=== PATIENT | male | born 1980 | race Caucasian/White ===

== ENCOUNTER 2016-05-01 13:17 | Emergency (ER) | payer MEDICARE, OTHER ==
[2016-05-01 13:38] LABS: Glucose,Whole Blood 84 mg/dL (75-99)
[2016-05-01] MEDS ORDERED: HYDROmorphone 1 MG/ML 1 ML SYRINGE IVP STA ×2 (13:38→15:20)
--- NOTE | 2016-05-01 13:41 | ED ---
Fall HPI - General Chief Complaint: Fall Stated Complaint: Fall Time Seen by Provider: 05/01/16 13:21 Source: patient, EMS Mode of arrival: EMS - History of Present Illness Initial Comments: 35-year-old male history of insulin-dependent diabetes hypertension seizure disorder on chronic dialysis last dialysis he missed yesterday. States he was carrying a laundry basket down the stairs and he fell complaining of left hip pain. He states the entire left limb hurts from the pelvis on Reading is no back pain no loss of consciousness no neck pain. No focal numbness or weakness he does have neuropathy and retinopathy. He states that he did not pass out - Related Data Home Medications Medication Instructions Recorded Confirmed Ranitidine HCl [Zantac] 150 mg PO BID 01/12/15 05/01/16 Cyclobenzaprine [Flexeril] 10 mg PO TID 06/25/15 05/01/16 oxyCODONE-APAP 10-325MG [Percocet 1 tab PO TID PRN 06/25/15 05/01/16 10-325 mg] Albuterol Inhaler [Ventolin Hfa 2 puff INHALATION RT-Q6H PRN 05/01/16 05/01/16 Inhaler] Furosemide [Lasix] 40 mg PO BID 05/01/16 05/01/16 Glucagon Emergency Kit 1 mg IM ONCE PRN 05/01/16 05/01/16 INSULIN LISPRO (HumaLOG) [humaLOG] See Protocol SQ AC-TID 05/01/16 05/01/16 Insulin Degludec [Tresiba 12 unit SQ AC-SUPPER 05/01/16 05/01/16 Flextouch U-100] Losartan [Cozaar] 25 mg PO DAILY 05/01/16 05/01/16 hydrALAZINE HCL 50 mg PO TID 05/01/16 05/01/16 Previous Rx's Medication Instructions Recorded Diltiazem Cd [Cardizem CD] 120 mg PO DAILY #30 cap.er.24h 04/06/16 levETIRAcetam [Keppra] 500 mg PO Q12HR #60 tab 04/06/16 Allergies Allergy/AdvReac Type Severity Reaction Status Date / Time cephalexin monohydrate Allergy Unknown Verified 05/01/16 13:25 [From Keflex] ciprofloxacin [From Cipro] Allergy Unknown Verified 05/01/16 13:25 ciprofloxacin HCl Allergy Unknown Verified 05/01/16 13:25 [From Cipro] Sulfa (Sulfonamide Allergy Unknown Verified 05/01/16 13:25 Antibiotics) hydrocodone bitartrate AdvReac Nausea & Verified 05/01/16 13:42 [From Vicodin] Vomiting Review of Systems ROS Statement: Those systems with pertinent positive or pertinent negative responses have been documented in the HPI. ROS Other: All systems not noted in ROS Statement are negative. Constitutional: Denies: fever, chills Eyes: Denies: eye pain ENT: Denies: ear pain, throat pain Respiratory: Denies: cough Cardiovascular: Denies: chest pain Gastrointestinal: Denies: abdominal pain, nausea, vomiting Genitourinary: Denies: urgency, dysuria, frequency, hematuria Past Medical History Past Medical History: Asthma, Diabetes Mellitus, Dialysis, Eye Disorder, GERD/ Reflux, Hypertension, Neurologic Disorder, Renal Disease, Seizure Disorder, Skin Disorder, Vascular Disorder Additional Past Medical History / Comment(s): IDDM type I-diagnosed at age 7yrs , current child grade II L great toe diabetic ulcer being tx in wound center by Dr. Em, past diabetic ulcer to R foot, end-stage renal disease on hemodialysis //Mon, diabetic neuropathy, diabetic retinopathy, bilateral near retinal detachment with hemorrhage-had surgery, diabetic gastroparesis, superior mesenteric artery syndrome, gastric ulcer, last seizure 04/2015, chronic pain, past fractures R hand and R knee, R knee gives out at times and has caused falls. History of Any Multi-Drug Resistant Organisms: None Reported Past Surgical History: Appendectomy, Orthopedic Surgery Additional Past Surgical History / Comment(s): Recent debridements L great toe- tx in wound center, 09/2014 and 10/2014 bilateral eye laser surgery for near retinal detachment with hemorrhage, 08/09/13 Gastric neurostimulator, right hand ORIF, dialysis fistula, sacral cystectomy, abscess removed from abdomin, teeth extractions, R knee with patellar tendon repair and I&D Past Anesthesia/Blood Transfusion Reactions: No Reported Reaction Additional Past Anesthesia/Blood Transfusion Reaction / Comment(s): Pt has never recieved blood Past Psychological History: Anxiety, Bipolar, Depression Additional Psychological History / Comment(s): Pt resides with his mother and father. His mother is his mixer operator hot metal when he needs assistance. Pt does not drive - mother takes to appts. He performs his own ADLs. He has a cane but does'nt always use it. He has a hx of his R knee giving out with numerous falls. Pt is seen at [facility] and feels his mental health is stable at this time. Smoking Status: Current every day smoker Past Alcohol Use History: None Reported Additional Past Alcohol Use History / Comment(s): Pt started smoking in 1994 and is a 1 ppd smoker. He does not drink alcohol. Past Drug Use History: None Reported - Past Family History Brother(s) Additional Family Medical History / Comment(s): Patient has 2 brothers and 2 half brothers with no major medical problems. Sister(s) Additional Family Medical History / Comment(s): A she has one sister and one half-sister with no major medical problems. Father Family Medical History: Coronary Artery Disease (CAD), Myocardial Infarction ([place] ) Additional Family Medical History / Comment(s): Father of a [place] at age 56yrs old. Mother Family Medical History: Thyroid Disorder Additional Family Medical History / Comment(s): Mother is in her early 60s with history of hypothyroidism. General Exam Limitations: no limitations General appearance: alert, other (Uncomfortable from pain) Head exam: Present: atraumatic Eye exam: Present: PERRL, EOMI ENT exam: Present: normal oropharynx, mucous membranes moist, TM's normal bilaterally Neck exam: Present: normal inspection. Absent: tenderness Respiratory exam: Present: normal lung sounds bilaterally Cardiovascular Exam: Present: regular rate, normal heart sounds GI/Abdominal exam: Present: soft. Absent: tenderness Left Hip exam: Present: tenderness. Absent: ecchymosis, deformity Upper Leg exam: Present: tenderness Knee exam: Present: tenderness Lower Leg exam: Present: tenderness Neurological exam: Present: alert, CN II-XII intact Psychiatric exam: Present: normal affect, normal mood Skin exam: Present: warm, dry Course Vital Signs 05/01/16 13:21 Temperature 97.5 F L Pulse Rate 97 Respiratory 20 Rate Blood Pressure 197/103 O2 Sat by Pulse 100 Oximetry Medical Decision Making - Medical Decision Making Patient has no fracture he states he has difficulty walking over he does not meet admitting criteria he is able to walk, the nurses able to get him to get up and walk. - Lab Data Result diagrams: 05/01/16 13:55 05/01/16 13:55 Lab Results 05/01/16 05/01/16 05/01/16 Range/Units 13:26 13:55 13:55 WBC 8.9 (3.8-10.6) k/uL RBC 3.25 L (4.30-5.90) m/uL Hgb 10.2 L (13.0-17.5) gm/dL Hct 30.8 L (39.0-53.0) % MCV 94.7 (80.0-100.0) fL MCH 31.3 (25.0-35.0) pg MCHC 33.1 (31.0-37.0) g/dL RDW 17.1 H (11.5-15.5) % Plt Count 171 D (150-450) k/uL Neutrophils % 79 % Lymphocytes % 12 % Monocytes % 5 % Eosinophils % 3 % Basophils % 0 % Neutrophils # 7.1 (1.3-7.7) k/uL Lymphocytes # 1.1 (1.0-4.8) k/uL Monocytes # 0.4 (0-1.0) k/uL Eosinophils # 0.3 (0-0.7) k/uL Basophils # 0.0 (0-0.2) k/uL Anisocytosis Slight Sodium 134 L (137-145) mmol/L Potassium 4.6 (3.5-5.1) mmol/L Chloride 97 L (98-107) mmol/L Carbon Dioxide 28 (22-30) mmol/L Anion Gap 9 mmol/L BUN 36 H (9-20) mg/dL Creatinine 5.90 H* (0.66-1.25) mg/dL Est GFR (MDRD) Af Amer 13 (>60 ml/min/1.73 sqM) Est GFR (MDRD) Non-Af 11 (>60 ml/min/1.73 sqM) Glucose 83 (74-99) mg/dL POC Glucose (mg/dL) 84 (75-99) mg/dL POC Glu [employer] Damon Culver Calcium 11.8 H (8.4-10.2) mg/dL - Radiology Data Radiology results: report reviewed X-ray right hip pelvis knee femur and tib-fib are all negative for fracture. Disposition Clinical Impression: Contusion of leg, left, Chronic renal failure, Insulin dependent diabetes mellitus Disposition: HOME SELF-CARE Condition: Fair Additional Instructions: Patient will take his pain medicine from home but increase it to 4-5 times daily instead 3 times daily apply moist heat be careful not to burn keep his dialysis appointment. Referrals: Tobias Conway MD [Primary Care Provider] - 1-2 days Time of Disposition: 15:55
[2016-05-01] MEDS ORDERED: HYDROmorphone 1 MG/ML 1 ML SYRINGE IM STA (13:57)
[2016-05-01 14:11] LABS: Anisocytosis Slight; Basophils % (A) 0 %; CH 32.3; CHCM 34.3; Eosinophils # (A) 0.3 k/uL (0-0.7); Eosinophils % (A) 3 %; HCT 30.8 % (39.0-53.0); HDW 3.14; HGB 10.2 gm/dL (13.0-17.5); Luc # (Auto) 0.09; Luc % (Auto) 1; Lymphocytes # (A) 1.1 k/uL (1.0-4.8); Lymphocytes % (A) 12 %; MCH 31.3 pg (25.0-35.0); MCHC 33.1 g/dL (31.0-37.0); MCV 94.7 fL (80.0-100.0); Mean Platelet Volume 8.9; Monocytes # (A) 0.4 k/uL (0-1.0); Monocytes % (A) 5 %; Neutrophils # (A) 7.1 k/uL (1.3-7.7); Neutrophils % (A) 79 %; RBC 3.25 m/uL (4.30-5.90); RDW 17.1 % (11.5-15.5); WBC 8.9 k/uL (3.8-10.6)
[2016-05-01 14:35] LABS: Calcium 11.8 mg/dL (8.4-10.2); Potassium 4.6 mmol/L (3.5-5.1)
--- NOTE | 2016-05-01 14:49 | XR ---
EXAMINATION TYPE: XR Hip Complete LT DATE OF EXAM: 05/01/2016 2:38 PM COMPARISON: NONE HISTORY: Pain after a fall TECHNIQUE: 2 views FINDINGS: I see no fracture nor dislocation. Hip joint space is fairly normal. There is no sign of hi p dysplasia. There is vascular calcification. IMPRESSION: Extensive vascular calcification for the patient's age. No fracture.
--- NOTE | 2016-05-01 14:50 | XR ---
EXAMINATION TYPE: XR knee complete LT DATE OF EXAM: 05/01/2016 2:39 PM COMPARISON: NONE HISTORY: Fell down the stairs. Pain. TECHNIQUE: 3 views FINDINGS: I see no fracture nor dislocation. Joint spaces are normal. There is vascular calcification . There is no sign of joint effusion. IMPRESSION: No acute abnormality of the left knee. No fracture.
--- NOTE | 2016-05-01 14:50 | XR ---
EXAMINATION TYPE: XR tibia fibula LT DATE OF EXAM: 05/01/2016 2:39 PM COMPARISON: NONE HISTORY: Pain. Fell down the stairs. TECHNIQUE: 4 views FINDINGS: I see no fracture nor dislocation. Knee joint and ankle joint appear intact. There is vascu lar calcification. IMPRESSION: No acute abnormality of the left tibia and fibula.
--- NOTE | 2016-05-01 14:51 | XR ---
EXAMINATION TYPE: XR femur LT DATE OF EXAM: 05/01/2016 2:39 PM COMPARISON: NONE HISTORY: Pain TECHNIQUE: 3 views FINDINGS: I see no fracture nor dislocation. Joint spaces are normal. There is vascular calcification . IMPRESSION: Negative left femur exam.
--- NOTE | 2016-05-01 14:52 | XR ---
EXAMINATION TYPE: XR pelvis AP view DATE OF EXAM: 05/01/2016 2:39 PM COMPARISON: NONE HISTORY: Pain. Fell down the stairs. TECHNIQUE: Single view FINDINGS: The pelvic ring is intact. Proximal femurs and hip joints are intact. Sacroiliac joints are normal. There is vascular calcification. IMPRESSION: Extensive vascular calcification. No acute abnormality.
[2016-05-01 16:07] VITALS: PULSE 98; RESP 16; TEMP 97.7
[2016-05-01 16:32] VITALS: BP 209/103
[2016-05-01] MEDS ORDERED: cloNIDine HCL 0.1 MG TAB PO STA (16:32)
== END 2016-05-01 16:34 | disposition home or self-care (01) ==
LOC: EC 13:17
DX: S80.12XA Contusion of left lower leg, initial encounter (principal); W10.9XXA Fall (on) (from) unspecified stairs and steps, initial encounter; I12.0 Hypertensive chronic kidney disease with stage 5 chronic kidney disease or end stage renal disease; N18.6 End stage renal disease; Z99.2 Dependence on renal dialysis; E10.40 Type 1 diabetes mellitus with diabetic neuropathy, unspecified; Z79.4 Long term (current) use of insulin; E10.319 Type 1 diabetes mellitus with unspecified diabetic retinopathy without macular edema; Z79.899 Other long term (current) drug therapy; G40.909 Epilepsy, unspecified, not intractable, without status epilepticus; Z88.2 Allergy status to sulfonamides; Z88.1 Allergy status to other antibiotic agents; Z88.5 Allergy status to narcotic agent; K21.9 Gastro-esophageal reflux disease without esophagitis; G89.29 Other chronic pain; E10.621 Type 1 diabetes mellitus with foot ulcer; L97.529 Non-pressure chronic ulcer of other part of left foot with unspecified severity; F17.200 Nicotine dependence, unspecified, uncomplicated
CPT/HCPCS: 96372 ×2; 96374 ×2; 99284 ×2; 36415; 80048; 85025; 72170; 73502; 73552; 73590; 73562; J1170

== ENCOUNTER → 2016-05-16 | Outpatient (CLI) | payer MEDICARE, OTHER ==
[~2016-05-16] MED LIST: SODIUM CHLORIDE 0.9% 250 ML in EMPTY BAG 1 BAG IV PRN; SODIUM CHLORIDE 0.9% 250 ML with PAMIDRONATE 60 MG IV NR; SODIUM CHLORIDE 0.9% 500 ML in EMPTY BAG 1 BAG IV PRN
[2016-05-16 10:12] VITALS: BP 188/95; PULSE 84; RESP 16; TEMP 97.8
== END | disposition home or self-care (01) ==
LOC: PROCWHC3 09:39
PROVIDERS: ATTEND Internal Medicine Nephrology
DX: N25.0 Renal osteodystrophy (principal)
CPT/HCPCS: 96365; 96366; J2430

== ENCOUNTER 2016-05-23 11:34 | Inpatient (IN) | payer MEDICARE, OTHER ==
[2016-05-23] MEDS ORDERED: ASPIRIN 81 MG CHEW PO STA (12:14)
[2016-05-23] MEDS ORDERED: FUROSEMIDE 10 MG/ML 4 ML VIAL IV STA (12:15)
[2016-05-23] MEDS ORDERED: MORPHINE SULFATE 4 MG/ML SYRINGE IV STA (12:15)
--- NOTE | 2016-05-23 13:19 | ED ---
Recheck HPI - General Source: patient, RN notes reviewed Mode of arrival: wheelchair Limitations: no limitations <Fernanda Sierra - Last Filed: 05/23/16 16:45> <Kenny Vergara - Last Filed: 05/23/16 17:40> - General Chief Complaint: Recheck/Abnormal Lab/Rx Stated Complaint: body swelling Time Seen by Provider: 05/23/16 12:06 - History of Present Illness Initial Comments: 35-year-old male presents to emergency room chief complaint of lower body swelling. Patient states that this started over the last week or so. Patient states that he has noticed some extra stress lately signs well. Patient states he went to dialysis yesterday the child take more fluid off but did not seem to help. Patient states that he does have history of heart failure he does have diabetes and multiple health problems. Patient denies any chest pain with this. Patient states he hasn't had any cough. Patient states she was concerned due to the continued swelling that he should be evaluated. Patient denies any recent fever, chills, chest pain, back pain, abdominal pain, nausea vomiting, numbness or tingling, dysuria or hematuria, constipation or diarrhea, headaches or visual changes, or any other current symptoms. (Fernanda Sierra) - Related Data Home Medications Medication Instructions Recorded Confirmed oxyCODONE-APAP 10-325MG [Percocet 1 tab PO TID PRN 06/25/15 05/23/16 10-325 mg] Albuterol Inhaler [Ventolin Hfa 2 puff INHALATION RT-Q6H PRN 05/01/16 05/23/16 Inhaler] Glucagon Emergency Kit 1 mg IM ONCE PRN 05/01/16 05/23/16 INSULIN LISPRO (HumaLOG) [humaLOG] See Protocol SQ AC-TID 05/01/16 05/23/16 Insulin Degludec [Tresiba 10 unit SQ DAILY 05/01/16 05/23/16 Flextouch U-100] hydrALAZINE HCL 50 mg PO TID 05/01/16 05/23/16 Omeprazole [PriLOSEC] 40 mg PO DAILY 05/16/16 05/23/16 Furosemide [Lasix] 20 mg PO DAILY 05/23/16 05/23/16 Allergies Allergy/AdvReac Type Severity Reaction Status Date / Time cephalexin monohydrate Allergy Unknown Verified 05/23/16 12:19 [From Keflex] ciprofloxacin [From Cipro] Allergy Unknown Verified 05/23/16 12:19 ciprofloxacin HCl Allergy Unknown Verified 05/23/16 12:19 [From Cipro] Sulfa (Sulfonamide Allergy Unknown Verified 05/23/16 12:19 Antibiotics) hydrocodone bitartrate AdvReac Nausea & Verified 05/23/16 12:19 [From Vicodin] Vomiting Review of Systems ROS Other: All systems not noted in ROS Statement are negative. <Fernanda Sierra - Last Filed: 05/23/16 16:45> ROS Other: All systems not noted in ROS Statement are negative. <Kenny Vergara - Last Filed: 05/23/16 17:40> ROS Statement: Those systems with pertinent positive or pertinent negative responses have been documented in the HPI. Past Medical History Past Medical History: Asthma, Diabetes Mellitus, Dialysis, Eye Disorder, GERD/ Reflux, Hypertension, Neurologic Disorder, Renal Disease, Seizure Disorder, Skin Disorder, Vascular Disorder Additional Past Medical History / Comment(s): IDDM type I-diagnosed at age 7yrs , current child grade II L great toe diabetic ulcer being tx in wound center by Dr. Em, past diabetic ulcer to R foot, end-stage renal disease on hemodialysis //Mon, diabetic neuropathy, diabetic retinopathy, bilateral near retinal detachment with hemorrhage-had surgery, diabetic gastroparesis, superior mesenteric artery syndrome, gastric ulcer, last seizure 04/2015, chronic pain, past fractures R hand and R knee, R knee gives out at times and has caused falls. History of Any Multi-Drug Resistant Organisms: None Reported Past Surgical History: Appendectomy, Orthopedic Surgery Additional Past Surgical History / Comment(s): Recent debridements L great toe- tx in wound center, 09/2014 and 10/2014 bilateral eye laser surgery for near retinal detachment with hemorrhage, 08/09/13 Gastric neurostimulator, right hand ORIF, dialysis fistula, sacral cystectomy, abscess removed from abdomin, teeth extractions, R knee with patellar tendon repair and I&D Past Anesthesia/Blood Transfusion Reactions: No Reported Reaction Additional Past Anesthesia/Blood Transfusion Reaction / Comment(s): Pt has never recieved blood Past Psychological History: Anxiety, Bipolar, Depression Additional Psychological History / Comment(s): Pt resides with his mother and father. His mother is his a&p mechanic when he needs assistance. Pt does not drive - mother takes to appts. He performs his own ADLs. He has a cane but does'nt always use it. He has a hx of his R knee giving out with numerous falls. Pt is seen at [facility] and feels his mental health is stable at this time. Smoking Status: Current every day smoker Past Alcohol Use History: None Reported Additional Past Alcohol Use History / Comment(s): Pt started smoking in 1994 and is a 1 ppd smoker. He does not drink alcohol. Past Drug Use History: None Reported - Past Family History Brother(s) Additional Family Medical History / Comment(s): Patient has 2 brothers and 2 half brothers with no major medical problems. Sister(s) Additional Family Medical History / Comment(s): A she has one sister and one half-sister with no major medical problems. Father Family Medical History: Coronary Artery Disease (CAD), Myocardial Infarction ([place] ) Additional Family Medical History / Comment(s): Father of a [place] at age 56yrs old. Mother Family Medical History: Thyroid Disorder Additional Family Medical History / Comment(s): Mother is in her early 60s with history of hypothyroidism. <Fernanda Sierra - Last Filed: 05/23/16 16:45> General Exam Limitations: no limitations <Fernanda Sierra - Last Filed: 05/23/16 16:45> <Kenny Vergara - Last Filed: 05/23/16 17:40> - General Exam Comments Initial Comments: General: The patient is awake and alert, in no distress, and does not appear acutely ill. Eye: Pupils are equal, round and reactive to light, extra-ocular movements are intact; there is normal conjunctiva bilaterally. No signs of icterus. Ears, nose, mouth and throat: There are moist mucous membranes. Neck: The neck is supple, there is no tenderness. Cardiovascular: There is a regular rate and rhythm. No murmur, rub or gallop is appreciated. Respiratory: Lungs are clear to auscultation, respirations are non-labored, breath sounds are equal. No wheezes, stridor, rales, or rhonchi. Gastrointestinal: Soft, non-distended, non-tender abdomen without masses or organomegaly noted. There is no rebound or guarding present Back: There is no tenderness to palpation in the midline. There is no obvious deformity. No rashes noted. Musculoskeletal: Normal ROM, no tenderness, 4+ pitting edema to bilateral lower extremities. There is no calf tenderness or swelling. Sensation intact. Pulses equal bilaterally 2+. Neurological: CN II-XII intact, There are no obvious motor or sensory deficits. Coordination appears grossly intact. Speech is normal. Skin: Skin is warm and dry and no rashes or lesions are noted. Psychiatric: Cooperative, appropriate mood & affect, normal judgment. (Fernanda Sierra) Course <Fernanda Sierra - Last Filed: 05/23/16 16:45> <Kenny Vergara - Last Filed: 05/23/16 17:40> Vital Signs 05/23/16 05/23/16 11:57 16:45 Temperature 98.4 F 97.7 F Pulse Rate 98 88 Respiratory 18 18 Rate Blood Pressure 178/88 168/87 O2 Sat by Pulse 100 100 Oximetry Medical Decision Making - Lab Data Result diagrams: 05/23/16 15:07 05/23/16 15:07 <Fernanda Sierra - Last Filed: 05/23/16 16:45> - Lab Data Result diagrams: 05/23/16 15:07 05/23/16 15:07 <Kenny Vergara - Last Filed: 05/23/16 17:40> - Medical Decision Making 35-year-old male presents emergency Department what appears to be a CHF exacerbation. At this time patient is found to be in a CHF exacerbation. This time patient did receive Lasix. This time we will consult referral cardiology. The patient will be admitted to the hospital for continued care. This is discussed with the patient. (Fernanda Sierra) Medical decision making I evaluated the patient his labs show white count of 10.8 hemoglobin 11 hematocrit 36, INR 1.1, BUN 42 creatinine 5.98 with a GFR of 11. Glucose 331. MB fraction 4.7 with a troponin 0.044. BNP is 186,000. Amylase lipase normal limits. The patient still making urine. In the emergency room received Lasix 60. Examination finds the patient with anasarca from feet to mid abdomen. He gets dialysis 3 times weekly he's due tomorrow. They try to take an extra liter 2 days ago with minimal results. I spoke with Dr. Chavis on-call for Dr. Conway. Patient be admitted her service continue to receive Lasix 60 3 times a day. With consultation from the appropriate services including nephrology. Dr. Vergara (Kenny Vergara) - Lab Data Lab Results 05/23/16 05/23/16 05/23/16 Range/Units 15:07 15:07 15:07 WBC 10.8 H (3.8-10.6) k/uL RBC 3.60 L (4.30-5.90) m/uL Hgb 11.3 L (13.0-17.5) gm/dL Hct 36.2 L (39.0-53.0) % MCV 100.3 H D (80.0-100.0) fL MCH 31.4 (25.0-35.0) pg MCHC 31.3 (31.0-37.0) g/dL RDW 16.7 H (11.5-15.5) % Plt Count 162 (150-450) k/uL Neutrophils % 84 % Lymphocytes % 9 % Monocytes % 3 % Eosinophils % 3 % Basophils % 0 % Neutrophils # 9.0 H (1.3-7.7) k/uL Lymphocytes # 1.0 (1.0-4.8) k/uL Monocytes # 0.3 (0-1.0) k/uL Eosinophils # 0.3 (0-0.7) k/uL Basophils # 0.0 (0-0.2) k/uL Hypochromasia Slight Anisocytosis Slight Macrocytosis Slight PT 10.7 (9.0-12.0) sec INR 1.1 (<1.1) APTT 21.8 L (22.0-30.0) sec Sodium 130 L (137-145) mmol/L Potassium 4.7 (3.5-5.1) mmol/L Chloride 91 L (98-107) mmol/L Carbon Dioxide 21 L (22-30) mmol/L Anion Gap 18 mmol/L BUN 42 H (9-20) mg/dL Creatinine 5.98 H* (0.66-1.25) mg/dL Est GFR (MDRD) Af Amer 13 (>60 ml/min/1.73 sqM) Est GFR (MDRD) Non-Af 11 (>60 ml/min/1.73 sqM) Glucose 331 H (74-99) mg/dL Calcium 7.5 L (8.4-10.2) mg/dL Magnesium 2.3 (1.6-2.3) mg/dL Total Bilirubin 0.6 (0.2-1.3) mg/dL AST 17 (17-59) U/L ALT 35 (21-72) U/L Alkaline Phosphatase 134 H (38-126) U/L Total Creatine Kinase (55-170) U/L CK-MB (CK-2) (0.0-2.4) ng/mL CK-MB (CK-2) Rel Index Troponin I (0.000-0.034) ng/mL NT-Pro-B Natriuret Pep pg/mL Total Protein 6.9 (6.3-8.2) g/dL Albumin 3.7 (3.5-5.0) g/dL Amylase <30 L (30-110) U/L Lipase <10 L (23-300) U/L 05/23/16 05/23/16 Range/Units 15:07 15:07 WBC (3.8-10.6) k/uL RBC (4.30-5.90) m/uL Hgb (13.0-17.5) gm/dL Hct (39.0-53.0) % MCV (80.0-100.0) fL MCH (25.0-35.0) pg MCHC (31.0-37.0) g/dL RDW (11.5-15.5) % Plt Count (150-450) k/uL Neutrophils % % Lymphocytes % % Monocytes % % Eosinophils % % Basophils % % Neutrophils # (1.3-7.7) k/uL Lymphocytes # (1.0-4.8) k/uL Monocytes # (0-1.0) k/uL Eosinophils # (0-0.7) k/uL Basophils # (0-0.2) k/uL Hypochromasia Anisocytosis Macrocytosis PT (9.0-12.0) sec INR (<1.1) APTT (22.0-30.0) sec Sodium (137-145) mmol/L Potassium (3.5-5.1) mmol/L Chloride (98-107) mmol/L Carbon Dioxide (22-30) mmol/L Anion Gap mmol/L BUN (9-20) mg/dL Creatinine (0.66-1.25) mg/dL Est GFR (MDRD) Af Amer (>60 ml/min/1.73 sqM) Est GFR (MDRD) Non-Af (>60 ml/min/1.73 sqM) Glucose (74-99) mg/dL Calcium (8.4-10.2) mg/dL Magnesium (1.6-2.3) mg/dL Total Bilirubin (0.2-1.3) mg/dL AST (17-59) U/L ALT (21-72) U/L Alkaline Phosphatase (38-126) U/L Total Creatine Kinase 100 (55-170) U/L CK-MB (CK-2) 4.7 H* (0.0-2.4) ng/mL CK-MB (CK-2) Rel Index 4.7 Troponin I 0.044 H* (0.000-0.034) ng/mL NT-Pro-B Natriuret Pep [id number] pg/mL Total Protein (6.3-8.2) g/dL Albumin (3.5-5.0) g/dL Amylase (30-110) U/L Lipase (23-300) U/L Disposition Time of Disposition: 16:41 Decision Date: 05/23/16 Decision Time: 16:41 <Fernanda Sierra - Last Filed: 05/23/16 16:45> <Kenny Vergara - Last Filed: 05/23/16 17:40> Clinical Impression: Nicotine dependence, Elevated troponin, Acute on chronic renal failure, Insulin dependent diabetes mellitus, CHF exacerbation, Hyponatremia, Chronic anemia Disposition: ADMITTED IP TO THIS HOSP Condition: Stable Referrals: Tobias Conway MD [Primary Care Provider] - 1-2 days
--- NOTE | 2016-05-23 13:36 | XR ---
EXAMINATION TYPE: XR chest 2V DATE OF EXAM: 05/23/2016 1:19 PM COMPARISON: Chest x-ray April 06, 2016. HISTORY: History of diabetes presents with swelling and chest pain TECHNIQUE: Frontal and lateral views of the chest are obtained. FINDINGS: There is persisting cardiomegaly with small bilateral pleural effusions. No suspicious foc al airspace opacity or pneumothorax is seen bilaterally The osseous structures are intact. IMPRESSION: Consider CHF exacerbation or fluid overload state as there is stable mild cardiomegaly w ith small sized bilateral pleural effusions all redemonstrated.
[2016-05-23 15:17] LABS: Anisocytosis Slight; Basophils % (A) 0 %; CH 31.4; CHCM 31.6; Eosinophils # (A) 0.3 k/uL (0-0.7); Eosinophils % (A) 3 %; HCT 36.2 % (39.0-53.0); HDW 3.03; HGB 11.3 gm/dL (13.0-17.5); Hypochromasia Slight; Luc # (Auto) 0.11; Luc % (Auto) 1; Lymphocytes % (A) 9 %; MCH 31.4 pg (25.0-35.0); MCHC 31.3 g/dL (31.0-37.0); Macrocytosis Slight; Mean Platelet Volume 8.2; Monocytes # (A) 0.3 k/uL (0-1.0); Monocytes % (A) 3 %; Neutrophils % (A) 84 %; RDW 16.7 % (11.5-15.5); WBC 10.8 k/uL (3.8-10.6)
[2016-05-23 15:22] LABS: ALT 35 U/L (21-72); AST 17 U/L (17-59); Alkaline Phosphatase 134 U/L (38-126); Amylase <30 U/L (30-110); Anion Gap 18 mmol/L; Blood Urea Nitrogen 42 mg/dL (9-20); Calcium 7.5 mg/dL (8.4-10.2); Carbon Dioxide 21 mmol/L (22-30); Chloride 91 mmol/L (98-107); Glucose 331 mg/dL (74-99); Magnesium 2.3 mg/dL (1.6-2.3); Potassium 4.7 mmol/L (3.5-5.1); Sodium 130 mmol/L (137-145); Total Bilirubin 0.6 mg/dL (0.2-1.3); Total Protein 6.9 g/dL (6.3-8.2)
[2016-05-23 15:24] LABS: MCV 100.3 fL (80.0-100.0)
[2016-05-23 15:29] LABS: Non-African American GFR(MDRD) 11 (>60 ml/min/1.73 sqM)
[2016-05-23 15:36] LABS: INR 1.1 (<1.1); Prothrombin Time 10.7 sec (9.0-12.0)
[2016-05-23 15:49] LABS: Creatine Kinase MB 4.7 ng/mL (0.0-2.4); Troponin I 0.044 ng/mL (0.000-0.034)
[2016-05-23 15:56] LABS: Partial Thromboplastin Time 21.8 sec (22.0-30.0)
[2016-05-23] MEDS ORDERED: ASPIRIN 325 MG TAB PO STA (16:41)
[2016-05-23] MEDS ORDERED: oxyCODONE-APAP 10-325MG 1 EACH TAB PO PRN (16:43)
[2016-05-23] MEDS ORDERED: ALBUTEROL NEBULIZED 2.5 MG/3 ML INHALATION PRN (16:43)
[2016-05-23] MEDS ORDERED: FUROSEMIDE 10 MG/ML 4 ML VIAL IV SCH (16:45)
[2016-05-23 17:55] LABS: Glucose,Whole Blood 316 mg/dL (75-99)
[2016-05-23] MEDS: INSULIN LISPRO (humaLOG) 300 UNIT/3 ML VIAL SQ SCH ×2 (18:19→22:32)
[2016-05-23] MEDS ORDERED: traMADol 50 MG TAB PO PRN (20:29)
[2016-05-23 20:32] LABS: Glucose,Whole Blood 308 mg/dL (75-99)
[2016-05-23] MEDS ORDERED: HYDROmorphone 1 MG/ML 1 ML SYRINGE IVP STA (22:04)
[2016-05-23 22:09] LABS: Creatine Kinase MB 3.5 ng/mL (0.0-2.4); Troponin I 0.036 ng/mL (0.000-0.034)
[2016-05-23] MEDS: hydrALAZINE HCL 50 MG TAB PO SCH (23:37)
[2016-05-23] MEDS: HEPARIN SODIUM,PORCINE 5,000 UNIT/ML 1 ML VIAL SQ SCH (23:37)
[2016-05-23] MEDS: FUROSEMIDE 10 MG/ML 10 ML VIAL IV SCH (23:39)
[2016-05-24] MEDS: HEPARIN SODIUM,PORCINE 5,000 UNIT/ML 1 ML VIAL SQ SCH ×3 (00:41→17:25)
[2016-05-24] MEDS: oxyCODONE-APAP 10-325MG 1 EACH TAB PO SCH ×5 (00:41→21:37)
[2016-05-24] MEDS ORDERED: GELATIN SPONGE,ABSORB (SMALL) 1 EACH SPONGE ONE (02:30)
[2016-05-24 03:13] LABS: Anisocytosis Slight; CHCM 33.5; HCT 30.6 % (39.0-53.0); HDW 3.13; HGB 10.3 gm/dL (13.0-17.5); MCH 32.3 pg (25.0-35.0); MCHC 33.5 g/dL (31.0-37.0); MCV 96.4 fL (80.0-100.0); Macrocytosis Slight; Mean Platelet Volume 8.8; RBC 3.17 m/uL (4.30-5.90); RDW 16.9 % (11.5-15.5)
[2016-05-24 03:41] LABS: Calcium 6.9 mg/dL (8.4-10.2); Potassium 5.3 mmol/L (3.5-5.1); Total Bilirubin 0.4 mg/dL (0.2-1.3); Total Protein 5.4 g/dL (6.3-8.2)
[2016-05-24 03:56] LABS: Creatine Kinase MB 3.5 ng/mL (0.0-2.4); Troponin I 0.037 ng/mL (0.000-0.034)
[2016-05-24 06:10] LABS: Glucose,Whole Blood 193 mg/dL (75-99)
[2016-05-24] MEDS: FUROSEMIDE 10 MG/ML 10 ML VIAL IV SCH ×3 (08:53→23:23)
[2016-05-24] MEDS: INSULIN LISPRO (humaLOG) 300 UNIT/3 ML VIAL SQ SCH ×4 (10:04→21:37)
[2016-05-24 10:09] LABS: Hemoglobin A1C 8.4 % (4.2-6.1)
[2016-05-24] MEDS: hydrALAZINE HCL 50 MG TAB PO SCH ×3 (10:28→21:37)
[2016-05-24] MEDS: PANTOPRAZOLE 40 MG TABLET PO SCH (10:30)
[2016-05-24] MEDS: ASPIRIN 325 MG TAB PO SCH (10:30)
--- NOTE | 2016-05-24 10:52 | CONS ---
DATE OF CONSULTATION: CHIEF COMPLAINT: Leg discomfort and leg edema. REASON FOR CONSULTATION: Elevated troponin. Shyam is a 35-year-old gentleman with history of insulin-requiring diabetes, hypertension, end-stage renal disease on hemodialysis who comes to hospital complaining of bilateral lower extremity edema and pain all over his body. He does not have any exertional chest pain. Does not have angina. He denies shortness of breath, paroxysmal nocturnal dyspnea or orthopnea. He comes in to hospital, had labs done that showed renal failure with a creatinine of 6.3, BUN of 43. Tropes are elevated at 0.04, 0.03, 0.03, probably secondary to underlying renal failure. Hemoglobin is low at 10.3. His EKG shows sinus rhythm with poor R-wave progression and nonspecific ST-T wave changes. Cardiology had been consulted for the elevated tropes. His chest discomfort is not anginal in nature and the troponin elevation is not related to acute myocardial ischemia. Past medical history is significant for renal failure on hemodialysis, diabetes, hypertension. Medications include Lasix 20 q. daily, hydralazine 50 t.i.d., Prilosec, insulin, glucagon and albuterol. ALLERGIES: There are multiple drug allergies including KEFLEX, CIPRO, SULFA, and VICODIN. Family history is negative for premature coronary artery disease. SOCIAL HISTORY: Significant for smoking. There is no history of EtOH abuse or drug abuse. Past surgical history is significant for resection of abscess, bilateral laser eye surgery, placement of gastric neurostimulator and debridement of right great toe wound. REVIEW OF SYSTEMS: HEENT is unremarkable. CARDIAC: As described above. RESPIRATORY: Negative. GI: Negative. GENITOURINARY: As described above. PSYCHOSOCIAL: Negative. ENDOCRINE: Negative. HEMATOLOGICAL: Negative. DERMATOLOGY: Negative. CONSTITUTIONAL: Negative. MUSCULOSKELETAL: Significant for chronic pain. On exam, patient is afebrile. Heart rate is 90 beats per minute. Blood pressure is 150/80, respiratory rate is 16. There is no jugular venous distention. Carotid upstroke is normal. There is no bruit. Chest exam reveals diminished air entry at the bases. Heart exam reveals first and second heart sounds. Systolic murmur in the left lower sternal border. Abdomen is soft. Exam of extremities bilateral pitting edema. Labs show that the hemoglobin is 10.3, platelet count is 147, BUN is 46, creatinine is 6.3. Tropes are in the melo zone. ASSESSMENT: 1. Troponin elevation, probably secondary to renal failure. 2. Chronic pain, musculoskeletal, management per Primary. 3. End-stage renal disease on hemodialysis. 4. Leg edema, probably related to the underlying renal failure. I will obtain a 2-D echo to document his LV function. We cannot rule out acute onset heart failure. I agree with the IV Lasix. Please control his blood pressure optimally. I will follow the patient with interest with you.
[2016-05-24 11:18] LABS: Glucose,Whole Blood 186 mg/dL (75-99)
[2016-05-24] MEDS: HYDROmorphone 1 MG/ML 1 ML SYRINGE IVP PRN ×3 (11:34→20:24)
--- NOTE | 2016-05-24 11:42 | ECHOF ---
Referral Reason:lv function MEASUREMENTS -------- HEIGHT: 180.3 cm WEIGHT: 73.9 kg BP: 155/80 IVSd: 0.7 cm (0.6 - 1.1) LVIDd: 4.6 cm (3.9 - 5.3) LVPWd: 1.4 cm (0.6 - 1.1) IVSs: 1.3 cm LVIDs: 3.5 cm LVPWs: 1.6 cm SV(Teich): 44 ml LAESV Index (A-L): 31.44 ml/m IVSd: 1.0 cm (0.6 - 1.1) LVIDd: 4.9 cm (3.9 - 5.3) LVPWd: 1.2 cm (0.6 - 1.1) IVSs: 1.4 cm LVIDs: 4.0 cm LVPWs: 1.4 cm EDV(Teich): 112 ml ESV(Teich): 68 ml EF(Teich): 39 % %FS: 19 % SV(Teich): 44 ml Ao Diam: 3.1 cm (2.0 - 3.7) AV Cusp: 1.5 cm (1.5 - 2.6) LA Diam: 4.2 cm (2.7 - 3.8) MV EXCURSION: 16.312 mm (> 18.000) MV EF SLOPE: 88 mm/s (70 - 150) EPSS: 1.0 cm MV E Parvez: 1.04 m/s MV DecT: 135 ms MV A Parvez: 0.56 m/s MV E/A Ratio: 1.87 AR PHT: 113 ms RAP: 15.00 mmHg RVSP: 52.51 mmHg FINDINGS -------- Sinus rhythm. This was a technically good study. There is mild concentric left ventricular hypertrophy. Overall left ventricular systolic function is mildly impaired with, an EF between 45 - 50 %. The right ventricle is normal in size and function. LA is moderately dilated 34-39 ml/m2 RA appears enlarged. Aortic valve is trileaflet and is mildly thickened. Trace amount of aortic regurgitation. The mitral valve leaflets are mildly thickened. Mild mitral annular calcification present. Mild mitral regurgitation is present. Moderate tricuspid regurgitation present. There is moderate pulmonary hypertension. The right ventricular systolic pressure, as measured by Doppler, is 52.51mmHg. Pulmonic valve appears structurally normal. The aortic root size is normal. Large Pleural Effusion. CONCLUSIONS -------- 1. Sinus rhythm. 2. The mitral valve leaflets are mildly thickened. 3. Mild mitral annular calcification present. 4. Mild mitral regurgitation is present. 5. Moderate tricuspid regurgitation present. 6. There is moderate pulmonary hypertension. 7. The right ventricular systolic pressure, as measured by Doppler, is 52.51mmHg. 8. Pulmonic valve appears structurally normal. 9. The aortic root size is normal. 10. Large Pleural Effusion. 11. This was a technically good study. 12. There is mild concentric left ventricular hypertrophy. 13. Overall left ventricular systolic function is mildly impaired with, an EF between 45 - 50 %. 14. The right ventricle is normal in size and function. 15. LA is moderately dilated 34-39 ml/m2 16. RA appears enlarged. 17. Aortic valve is trileaflet and is mildly thickened. 18. Trace amount of aortic regurgitation. MEDICAL AUDITOR: Preeti Josue RDCS
[2016-05-24] MEDS: INSULIN GLARGINE 100 UNIT/ML 10 ML VIAL SQ SCH (12:29)
[2016-05-24 13:07] LABS: Glucose,Whole Blood 159 mg/dL (75-99)
[2016-05-24 16:45] LABS: Glucose,Whole Blood 114 mg/dL (75-99)
--- NOTE | 2016-05-24 16:54 | P.CONS ---
History of Present Illness - Chief Complaint Medical debility - History of Present Illness I had the opportunity to see patient for inpatient rehab consultation with regard to medical debility. He was admitted to [facility] yesterday with CHF exacerbation. Chest x-ray demonstrated CHF as well as mild cardiomegaly. Cardiac echo demonstrated mild mitral thickening and regurgitation as well as moderate tricuspid regurgitation. Seen in consultation by Dr. Cindy Calvillo. PT and OT prescribed. Previous functional history: As elicited from patient: 35-year-old right-handed white male who is single lives and 2 floor home with mom currently. Smokes up to a pack per day. Denies recreational drugs or alcohol. Is on disability related to neuropathy and neuropathic pain. Describes independent with own cooking, laundry, sitdown shower, gait with 4 wheeled walker or standard cane. Does not drive. Reports that he will have to move move out due to gait disturbance with multiple falls and mom unable to take care of him. Review of Systems Review of systems: ENT: Denies sneezes or discharge. Eyes: Denies discharge or photophobia. Cardiac: Denies chest pain or palpitation. Pulmonary: Mild shortness of breath. Gastrointestinal: Abdominal discomfort and distention. Genitourinary: Denies discharge or frequency. Musculoskeletal: Denies muscle or bone aches. Neurologic: Mild generalized weakness and severe sensory loss particularly lowers. Endocrine: Denies shakes or sweats. Oncology: Denies cancers. Dermatologic: Denies rash, itching, pruritus. ALLERGY/immunology: Denies sneezes, rashes. Past Medical History Past Medical History: Asthma, Diabetes Mellitus, Dialysis, Eye Disorder, GERD/ Reflux, Hypertension, Neurologic Disorder, Renal Disease, Seizure Disorder, Skin Disorder, Vascular Disorder Additional Past Medical History / Comment(s): IDDM type I-diagnosed at age 7yrs , L great toe diabetic ulcer pt stated healed, diabetic ulcer to R foot, end- stage renal disease on hemodialysis //Mon, diabetic neuropathy, diabetic retinopathy, bilateral near retinal detachment with hemorrhage-had surgery, diabetic gastroparesis, superior mesenteric artery syndrome, gastric ulcer, last seizure 04/2015, chronic pain, past fractures R hand and R knee, R knee gives out at times and has caused falls.STATED HAS A PNE VACINE AT [facility] FEW YEARS AGO UNSURE OF DATE. History of Any Multi-Drug Resistant Organisms: None Reported Past Surgical History: Appendectomy, Orthopedic Surgery Additional Past Surgical History / Comment(s): past debridements L great toe-tx in wound center, 09/2014 and 10/2014 bilateral eye laser surgery for near retinal detachment with hemorrhage, 08/09/13 Gastric neurostimulator, right hand ORIF, dialysis fistula, sacral cystectomy, abscess removed from abdomin, teeth extractions, R knee with patellar tendon repair and I&D Past Anesthesia/Blood Transfusion Reactions: No Reported Reaction Additional Past Anesthesia/Blood Transfusion Reaction / Comm: Pt has never recieved blood Past Psychological History: Anxiety, Bipolar, Depression Additional Psychological History / Comment(s): Pt resides with his mother and father. His mother is his quarter folder when he needs assistance. Pt does not drive - mother takes to appts. He performs his own ADLs. He has a cane but does'nt always use it.. Smoking Status: Current every day smoker Past Alcohol Use History: None Reported Additional Past Alcohol Use History / Comment(s): Pt started smoking in 1994 and is a 1 ppd smoker. He does not drink alcohol. Past Drug Use History: None Reported - Past Family History Brother(s) Additional Family Medical History / Comment(s): Patient has 2 brothers and 2 half brothers with no major medical problems. Sister(s) Additional Family Medical History / Comment(s): A she has one sister and one half-sister with no major medical problems. Father Family Medical History: Coronary Artery Disease (CAD), Myocardial Infarction (NH ) Additional Family Medical History / Comment(s): Father of a NH at age 56yrs old. Mother Family Medical History: Thyroid Disorder Additional Family Medical History / Comment(s): Mother is in her early 60s with history of hypothyroidism. Medications and Allergies Home Medications Medication Instructions Recorded Confirmed Type oxyCODONE-APAP 10-325MG [Percocet 1 tab PO TID PRN 06/25/15 05/23/16 History 10-325 mg] Albuterol Inhaler [Ventolin Hfa 2 puff INHALATION RT-Q6H PRN 05/01/16 05/23/16 History Inhaler] Glucagon Emergency Kit 1 mg IM ONCE PRN 05/01/16 05/23/16 History INSULIN LISPRO (HumaLOG) [humaLOG] See Protocol SQ AC-TID 05/01/16 05/23/16 History Insulin Degludec [Tresiba 10 unit SQ DAILY 05/01/16 05/23/16 History Flextouch U-100] hydrALAZINE HCL 50 mg PO TID 05/01/16 05/23/16 History Omeprazole [PriLOSEC] 40 mg PO DAILY 05/16/16 05/23/16 History Furosemide [Lasix] 20 mg PO DAILY 05/23/16 05/23/16 History Allergies Allergy/AdvReac Type Severity Reaction Status Date / Time cephalexin monohydrate Allergy Unknown Verified 05/23/16 12:19 [From Keflex] ciprofloxacin [From Cipro] Allergy Unknown Verified 05/23/16 12:19 ciprofloxacin HCl Allergy Unknown Verified 05/23/16 12:19 [From Cipro] Sulfa (Sulfonamide Allergy Unknown Verified 05/23/16 12:19 Antibiotics) hydrocodone bitartrate AdvReac Nausea & Verified 05/23/16 12:19 [From Vicodin] Vomiting Physical Exam Vitals: Vital Signs Temp Pulse Pulse Resp BP BP Pulse Ox 05/24/16 11:30 96 16 155/95 99 05/24/16 08:50 93 16 05/24/16 08:20 97.8 F 95 16 155/80 05/24/16 04:00 98.0 F 89 16 150/87 98 05/24/16 00:00 79 16 156/86 100 05/23/16 20:00 98.0 F 91 16 179/81 100 05/23/16 19:27 100 05/23/16 18:38 98.5 F 86 18 166/98 97 05/23/16 17:53 98.1 F 86 15 160/84 100 Intake and Output 05/24/16 05/24/16 05/24/16 06:59 14:59 22:59 Intake Total 1180 Output Total 650 Balance 1180 -650 Intake: Oral 1180 Output: Urine 650 Other: Voiding Method Urinal Urinal # Voids 1 Weight 74 kg Skin: Shiny and atrophic. General: Thin build and slightly uncomfortable appearance. Head: Normocephalic, atraumatic. Eyes: Symmetric. Pupils equal round. Ears: Symmetric. Hearing within normal limits. Mouth: Clear. Neck: Supple. Carotid without bruit. Cardiac: Regular rate and rhythm. Lungs: Clear anteriorly and posteriorly. Abdomen: Soft active nontender. Extremities: Thin limbs with mild to moderate edema forelegs and moderate edema feet. Neurological: Mental status: Alert, cooperative, pleasant. Cranial nerves: Symmetric facial tone and trapezius. Motor: Arms are at best antigravity in legs are definitely less than antigravity. Sensation: Absent legs. DTRs: Absent throughout. Mobility: Poor bed mobility. Results CBC & Chem 7: 05/24/16 03:00 05/24/16 03:00 Labs: Abnormal Lab Results - Last 24 Hours (Table) 05/23/16 05/23/16 05/23/16 Range/Units 17:47 20:31 21:17 RBC (4.30-5.90) m/uL Hgb (13.0-17.5) gm/dL Hct (39.0-53.0) % RDW (11.5-15.5) % Plt Count (150-450) k/uL Sodium (137-145) mmol/L Potassium (3.5-5.1) mmol/L Chloride (98-107) mmol/L Carbon Dioxide (22-30) mmol/L BUN (9-20) mg/dL Creatinine (0.66-1.25) mg/dL Glucose (74-99) mg/dL POC Glucose (mg/dL) 316 H 308 H (75-99) mg/dL Hemoglobin A1c (4.2-6.1) % Calcium (8.4-10.2) mg/dL CK-MB (CK-2) 3.5 H* (0.0-2.4) ng/mL Troponin I 0.036 H* (0.000-0.034) ng/mL Total Protein (6.3-8.2) g/dL Albumin (3.5-5.0) g/dL 05/24/16 05/24/16 05/24/16 Range/Units 03:00 03:00 03:00 RBC 3.17 L (4.30-5.90) m/uL Hgb 10.3 L (13.0-17.5) gm/dL Hct 30.6 L (39.0-53.0) % RDW 16.9 H (11.5-15.5) % Plt Count 147 L (150-450) k/uL Sodium 128 L (137-145) mmol/L Potassium 5.3 H (3.5-5.1) mmol/L Chloride 95 L (98-107) mmol/L Carbon Dioxide 20 L (22-30) mmol/L BUN 46 H (9-20) mg/dL Creatinine 6.30 H* (0.66-1.25) mg/dL Glucose 249 H (74-99) mg/dL POC Glucose (mg/dL) (75-99) mg/dL Hemoglobin A1c 8.4 H (4.2-6.1) % Calcium 6.9 L (8.4-10.2) mg/dL CK-MB (CK-2) (0.0-2.4) ng/mL Troponin I (0.000-0.034) ng/mL Total Protein 5.4 L (6.3-8.2) g/dL Albumin 2.8 L (3.5-5.0) g/dL 05/24/16 05/24/16 05/24/16 Range/Units 03:00 06:09 11:16 RBC (4.30-5.90) m/uL Hgb (13.0-17.5) gm/dL Hct (39.0-53.0) % RDW (11.5-15.5) % Plt Count (150-450) k/uL Sodium (137-145) mmol/L Potassium (3.5-5.1) mmol/L Chloride (98-107) mmol/L Carbon Dioxide (22-30) mmol/L BUN (9-20) mg/dL Creatinine (0.66-1.25) mg/dL Glucose (74-99) mg/dL POC Glucose (mg/dL) 193 H 186 H (75-99) mg/dL Hemoglobin A1c (4.2-6.1) % Calcium (8.4-10.2) mg/dL CK-MB (CK-2) 3.5 H* (0.0-2.4) ng/mL Troponin I 0.037 H* (0.000-0.034) ng/mL Total Protein (6.3-8.2) g/dL Albumin (3.5-5.0) g/dL 05/24/16 05/24/16 Range/Units 13:05 16:44 RBC (4.30-5.90) m/uL Hgb (13.0-17.5) gm/dL Hct (39.0-53.0) % RDW (11.5-15.5) % Plt Count (150-450) k/uL Sodium (137-145) mmol/L Potassium (3.5-5.1) mmol/L Chloride (98-107) mmol/L Carbon Dioxide (22-30) mmol/L BUN (9-20) mg/dL Creatinine (0.66-1.25) mg/dL Glucose (74-99) mg/dL POC Glucose (mg/dL) 159 H 114 H (75-99) mg/dL Hemoglobin A1c (4.2-6.1) % Calcium (8.4-10.2) mg/dL CK-MB (CK-2) (0.0-2.4) ng/mL Troponin I (0.000-0.034) ng/mL Total Protein (6.3-8.2) g/dL Albumin (3.5-5.0) g/dL Assessment and Plan (1) CHF exacerbation Status: Acute Plan: Impression: 1. Medical debility. 2. CHF exacerbation. 3. Chronic kidney disease. 4. Diabetic Polyneuropathy and associated pain syndrome. 5. Gastroparesis and abdominal pain. Comments and plan: At this time PT and OT are already ordered. Rehab prognosis guarded due to poor leg strength and the fact that he's been doing poorly at home and mom may now be burnt out. Patient already anticipating need for 24/ 7 physical assistance and this most likely sounds to be ECF for subacute placement.We'll follow with yourself.
--- NOTE | 2016-05-24 20:07 | CONS ---
DATE OF CONSULTATION: 05/24/2016 REASON FOR CONSULTATION: End-stage renal disease. HISTORY OF PRESENT ILLNESS: Patient is a 35-year-old male with history of end-stage renal disease, on hemodialysis on a Monday, , Monday schedule. Patient has lately been quite noncompliant with his treatments. He states that he is not able to make it to dialysis when he is not feeling well. There are multiple social issues at home. Patient lives with his mother and her , who is his stepdad, and there have been multiple social issues. According to his mother, he has been quite weak, particularly lately, and has not been able to walk even short distances without falling. She is not sure if his blood sugars are low, since she works. She feels at this time he is not able to take care of himself and he needs to be placed in a rehab facility or a chcf. PAST MEDICAL HISTORY: 1. End-stage renal disease. 2. CKD, bone mineral disorder. 3. Type 1 diabetes. 4. Diabetic gastroparesis. 5. Seizure disorder. 6. History of gastric ulcer. 7. History of superior mesenteric artery syndrome. PAST SURGICAL HISTORY: 1. Appendectomy. 2. Gastric pacer placement. 3. Perm-A-Cath placement for dialysis. 4. AV fistula. SOCIAL HISTORY: Positive for smoking. No history of other drug abuse or alcohol abuse. REVIEW OF SYSTEMS: As per HPI. Other systems negative. Patient has been complaining of increased lower extremity edema over the past 1 to 2 weeks. On examination, he is currently comfortable, awake, not in any acute distress. He is upset since his mother walked in. Blood pressure is 155/95, heart rate 96 per minute. He is afebrile. EXAMINATION OF THE HEART: S1 and S2. EXAMINATION OF THE LUNGS: Decreased breath sounds in the bases. ABDOMEN: Soft, nontender. Examination of lower extremities shows edema 3+ bilaterally. NUCLEAR MEDICINE MEDICAL DIRECTOR exam is grossly intact. Patient is moving all 4 extremities. Labs show sodium 128, potassium 5.3; hemoglobin 10.3. Chest x-ray shows evidence of CHF. ASSESSMENT: 1. End-stage renal disease, on hemodialysis on a Monday, , Monday schedule, with patient being quite noncompliant as outpatient. We will arrange for hemodialysis today. 2. Fluid overload secondary to noncompliance. Patient will be dialyzed today as well as tomorrow; mainly for ultrafiltration tomorrow. 3. Multiple social issues at home. Consider placement to rehab or extended-care facility, as patient is not able to take care of himself, with issues with blood sugar control and noncompliance with diet and multiple falls. 4. Cardiomyopathy with ejection fraction of 45% to 50% with moderate pulmonary hypertension noted on the echocardiogram as well. PLAN: Hemodialysis today. Repeat dialysis in a.m. and increase UF as tolerated.
[2016-05-24 21:07] LABS: Glucose,Whole Blood 128 mg/dL (75-99)
--- NOTE | 2016-05-24 21:51 | P.HPIM ---
History of Present Illness Chief Complaint: inability to ambulate secondary to severe pain, worsening edema , shortness This is a 35-year-old male. He is a patient of Dr. Tobias Conway with past mental history of end-stage renal disease on hemodialysis Monday and Monday, diabetes mellitus type 1 uncontrolled, diabetic gastroparesis with nerve stimulator in place, chronic anemia, diabetic polyneuropathy, generalized anxiety disorder, bipolar disorder, seizure disorder, hypertension, hyperlipidemia, chronic pain syndrome, gastroesophageal reflux disease, history of MRSA infection, retinopathy, advanced cardiomyopathy with ejection fraction 20% followed by cardiology. Patient was seen in emergency room secondary to increasing shortness of breath as he missed his scheduled dialysis 4 days ago on a Monday as patient has increasing difficulties with his uncontrolled pain despite Percocet 10 325 at 3 times a day. He follows with Dr. Rendon for his chronic pain. Patient's pain is generalized shooting burning throbbing constant with achiness and spasms. He has increasing edema from below the waist , developed shortness of breath with PND. Patient denies any fever no chills. No changes in nausea or vomiting appetite is similar to previous. No dysuria no hematuria no diarrhea no vision changes He required ER evaluation for treatment of congestive heart failure in the emergency room imaging studies include Chest x-ray shows evidence of pulmonary venous congestion with scattered areas of increased obesity and pleural effusions consider volume overload. , EKG shows sinus rhythm with poor R -wave progression and nonspecific ST-T wave changes, troponin elevated at 0.0 4.0 3.03 creatinine is 6.3. Patient is not anuric Review of Systems Constitutional: Reports as per HPI, Reports chronic pain, Denies anorexia, Denies chills, Denies chronic headaches, Denies daytime sleepiness, Denies fatigue, Denies fever, Denies lethargy, Denies malaise, Denies night sweats, Denies poor appetite, Denies sweats, Denies weakness, Denies weight gain, Denies weight loss Ears, nose, mouth and throat: Reports as per HPI, Denies ant. neck pain, Denies bleeding gums, Denies dental pain, Denies dysphagia, Denies epistaxis, Denies headache, Denies hoarseness, Denies mouth pain, Denies nasal congestion, Denies nasal discharge, Denies neck fullness/pressure, Denies neck lump, Denies nose pain, Denies odynophagia, Denies post-nasal drip, Denies sinus pain, Denies sinus pressure, Denies swelling in mouth, Denies swelling in throat, Denies sore throat, Denies vertigo, Denies voice changes Cardiovascular: Reports as per HPI, Reports edema, Reports leg edema, Reports orthopnea, Reports shortness of breath, Denies chest pain, Denies claudication, Denies decreased exercise tolerance, Denies dyspnea on exertion, Denies high blood pressure, Denies irregular heart beat, Denies lightheadedness, Denies palpitations, Denies paroxysmal nocturnal dyspnea, Denies phlebitis, Denies rapid heart beat, Denies syncope Respiratory: Reports as per HPI, Denies congestion, Denies cough, Denies cough with sputum, Denies dyspnea, Denies excessive sputum, Denies hemoptysis, Denies home oxygen, Denies pain, Denies pain on inspiration, Denies pleurisy, Denies respiratory infections, Denies sleep apnea, Denies snoring, Denies wheezing Gastrointestinal: Reports as per HPI, Denies abdominal pain, Denies belching, Denies bloating, Denies BRBPR, Denies change in bowel habits, Denies coffee ground emesis, Denies constipation, Denies diarrhea, Denies dyspepsia, Denies early satiety, Denies excessive gas, Denies heartburn, Denies hematemesis, Denies hematochezia, Denies indigestion, Denies jaundice, Denies lactose intolerance, Denies loss of appetite, Denies melena, Denies nausea, Denies vomiting Genitourinary: Reports as per HPI, Denies decreased libido, Denies difficulties fathering child, Denies discharge, Denies dysuria, Denies erectile dysfunction, Denies flank pain, Denies genital pain, Denies genital sores, Denies hematuria, Denies impotence, Denies incontinence, Denies kidney stones, Denies nocturia, Denies polyuria, Denies testicular lump, Denies testicular pain, Denies urinary frequency, Denies urinary hesitancy, Denies urinary retention Musculoskeletal: Reports as per HPI, Denies arm numbness/tingling, Denies atrophy, Denies fractures, Denies frequent falls, Denies gait dysfunction, Denies hot joints, Denies leg numbness/tingling, Denies limitation of motion, Denies loss of height, Denies low back pain, Denies morning stiffness, Denies muscle cramps, Denies muscle weakness, Denies myalgias, Denies neck pain, Denies neck stiffness, Denies prior amputations, Denies redness of joints, Denies shooting arm pain, Denies shooting leg pain Integumentary: Reports as per HPI, Denies acne, Denies boils, Denies brittle nails, Denies change in hair/nails, Denies color changes, Denies darkening of skin, Denies depigmentation, Denies dryness, Denies foot/leg ulcers, Denies growths, Denies hirsutism, Denies lesions, Denies onychomycosis, Denies pruritus , Denies rash, Denies sores, Denies striae, Denies unusual bruising, Denies wounds Neurological: Reports as per HPI, Denies aphasia, Denies ataxia, Denies balance difficulties, Denies burning pain, Denies change in mentation, Denies change in smell/taste, Denies change in speech, Denies confusion, Denies convulsions, Denies double vision, Denies gait dysfunction, Denies head injury, Denies headaches, Denies hearing difficulties, Denies lack of coordination, Denies loss of vision, Denies memory loss, Denies migraines, Denies motor disturbance, Denies numbness, Denies paralysis, Denies paresthesias, Denies seizures, Denies sensory deficit, Denies spasticity, Denies syncope, Denies tic, Denies tingling , Denies transient paralysis, Denies tremors, Denies vertigo, Denies weakness, Denies visual changes Psychiatric: Reports as per HPI, Denies anhedonia, Denies anxiety, Denies anxiety attacks, Denies change in appetite, Denies change in libido, Denies change in sleep habits, Denies confusion, Denies depression, Denies difficulty concentrating, Denies disorientation, Denies hallucinations, Denies hopelessness , Denies hypersomnia, Denies insomnia, Denies irritability, Denies memory loss, Denies mood swings, Denies paranoia, Denies sadness/tearfulness, Denies sleep disturbances, Denies suicidal ideation Endocrine: Reports as per HPI, Denies cold intolerance, Denies deepening of the voice, Denies excessive sweating, Denies excessive thirst, Denies fatigue, Denies flushing, Denies heat intolerance, Denies high blood sugars, Denies increase in ring/shoe/hat size, Denies low blood sugars, Denies nocturia, Denies palpitations, Denies polydipsia, Denies polyphagia, Denies polyuria, Denies proptosis, Denies recent glucocorticoid use, Denies thyroid mass, Denies weight change Past Medical History Past Medical History: Asthma, Diabetes Mellitus, Dialysis, Eye Disorder, GERD/ Reflux, Hypertension, Neurologic Disorder, Renal Disease, Seizure Disorder, Skin Disorder, Vascular Disorder Additional Past Medical History / Comment(s): IDDM type I-diagnosed at age 7yrs , L great toe diabetic ulcer pt stated healed, diabetic ulcer to R foot, end- stage renal disease on hemodialysis //Mon, diabetic neuropathy, diabetic retinopathy, bilateral near retinal detachment with hemorrhage-had surgery, diabetic gastroparesis, superior mesenteric artery syndrome, gastric ulcer, last seizure 04/2015, chronic pain, past fractures R hand and R knee, R knee gives out at times and has caused falls.STATED HAS A PNE VACINE AT [facility] FEW YEARS AGO UNSURE OF DATE. History of Any Multi-Drug Resistant Organisms: None Reported Past Surgical History: Appendectomy, Orthopedic Surgery Additional Past Surgical History / Comment(s): past debridements L great toe-tx in wound center, 09/2014 and 10/2014 bilateral eye laser surgery for near retinal detachment with hemorrhage, 08/09/13 Gastric neurostimulator, right hand ORIF, dialysis fistula, sacral cystectomy, abscess removed from abdomin, teeth extractions, R knee with patellar tendon repair and I&D Past Anesthesia/Blood Transfusion Reactions: No Reported Reaction Additional Past Anesthesia/Blood Transfusion Reaction / Comment(s): Pt has never recieved blood Past Psychological History: Anxiety, Bipolar, Depression Additional Psychological History / Comment(s): Pt resides with his mother and father. His mother is his skidway man when he needs assistance. Pt does not drive - mother takes to appts. He performs his own ADLs. He has a cane but does'nt always use it.. Smoking Status: Current every day smoker Past Alcohol Use History: None Reported Additional Past Alcohol Use History / Comment(s): Pt started smoking in 1994 and is a 1 ppd smoker. He does not drink alcohol. Past Drug Use History: None Reported - Past Family History Brother(s) Additional Family Medical History / Comment(s): Patient has 2 brothers and 2 half brothers with no major medical problems. Sister(s) Additional Family Medical History / Comment(s): A she has one sister and one half-sister with no major medical problems. Father Family Medical History: Coronary Artery Disease (CAD), Myocardial Infarction (VT ) Additional Family Medical History / Comment(s): Father of a VT at age 56yrs old. Mother Family Medical History: Thyroid Disorder Additional Family Medical History / Comment(s): Mother is in her early 60s with history of hypothyroidism. Medications and Allergies Home Medications Medication Instructions Recorded Confirmed Type oxyCODONE-APAP 10-325MG [Percocet 1 tab PO TID PRN 06/25/15 05/23/16 History 10-325 mg] Albuterol Inhaler [Ventolin Hfa 2 puff INHALATION RT-Q6H PRN 05/01/16 05/23/16 History Inhaler] Glucagon Emergency Kit 1 mg IM ONCE PRN 05/01/16 05/23/16 History INSULIN LISPRO (HumaLOG) [humaLOG] See Protocol SQ AC-TID 05/01/16 05/23/16 History Insulin Degludec [Tresiba 10 unit SQ DAILY 05/01/16 05/23/16 History Flextouch U-100] hydrALAZINE HCL 50 mg PO TID 05/01/16 05/23/16 History Omeprazole [PriLOSEC] 40 mg PO DAILY 05/16/16 05/23/16 History Furosemide [Lasix] 20 mg PO DAILY 05/23/16 05/23/16 History Allergies Allergy/AdvReac Type Severity Reaction Status Date / Time cephalexin monohydrate Allergy Unknown Verified 05/23/16 12:19 [From Keflex] ciprofloxacin [From Cipro] Allergy Unknown Verified 05/23/16 12:19 ciprofloxacin HCl Allergy Unknown Verified 05/23/16 12:19 [From Cipro] Sulfa (Sulfonamide Allergy Unknown Verified 05/23/16 12:19 Antibiotics) hydrocodone bitartrate AdvReac Nausea & Verified 05/23/16 12:19 [From Vicodin] Vomiting Physical Exam Vitals: Vital Signs Temp Pulse Pulse Resp BP BP Pulse Ox 05/24/16 11:30 96 16 155/95 99 05/24/16 08:50 93 16 05/24/16 08:20 97.8 F 95 16 155/80 05/24/16 04:00 98.0 F 89 16 150/87 98 05/24/16 00:00 79 16 156/86 100 05/23/16 20:00 98.0 F 91 16 179/81 100 05/23/16 19:27 100 05/23/16 18:38 98.5 F 86 18 166/98 97 05/23/16 17:53 98.1 F 86 15 160/84 100 Intake and Output 05/24/16 05/24/16 05/24/16 06:59 14:59 22:59 Intake Total 1180 Output Total 650 Balance 1180 -650 Intake: Oral 1180 Output: Urine 650 Other: Voiding Method Urinal Urinal # Voids 1 Weight 74 kg - Constitutional General appearance: cooperative, no acute distress, thin - EENT Eyes: anicteric sclerae, EOMI, PERRLA, dentition normal ENT: hard of hearing, normal oropharynx - Neck Neck: no lymphadenopathy, normal ROM, no other, no rigidity, no stridor, no thyromegaly Thyroid: bilateral: normal size - Respiratory Respiratory: bilateral: CTA, diminished - Cardiovascular Rhythm: regular Heart sounds: normal: S1 Abnormal Heart Sounds: systolic murmur, no diastolic murmur, no rub, no S3 Gallop, no S4 Gallop, no click, no other leg Peripheral Edema: bilateral: 3+ - Gastrointestinal General gastrointestinal: no absent bowel sounds, no decreased bowel sounds, distended, no hepatomegaly, no hyperactive bowel sounds, normal bowel sounds, no organomegaly, no rigid, no scaphoid, soft, no splenomegaly, no tenderness, no umbilical hernia, no ventral hernia - Integumentary Integumentary: decreased turgor, normal - Neurologic Neurologic: CNII-XII intact - Musculoskeletal Musculoskeletal: generalized weakness, strength equal bilaterally - Psychiatric Psychiatric: A&O x's 3, appropriate affect, intact judgment & insight Results CBC & Chem 7: 05/24/16 03:00 05/24/16 03:00 Labs: Abnormal Lab Results - Last 24 Hours (Table) 05/23/16 05/23/16 05/23/16 Range/Units 17:47 20:31 21:17 RBC (4.30-5.90) m/uL Hgb (13.0-17.5) gm/dL Hct (39.0-53.0) % RDW (11.5-15.5) % Plt Count (150-450) k/uL Sodium (137-145) mmol/L Potassium (3.5-5.1) mmol/L Chloride (98-107) mmol/L Carbon Dioxide (22-30) mmol/L BUN (9-20) mg/dL Creatinine (0.66-1.25) mg/dL Glucose (74-99) mg/dL POC Glucose (mg/dL) 316 H 308 H (75-99) mg/dL Hemoglobin A1c (4.2-6.1) % Calcium (8.4-10.2) mg/dL CK-MB (CK-2) 3.5 H* (0.0-2.4) ng/mL Troponin I 0.036 H* (0.000-0.034) ng/mL Total Protein (6.3-8.2) g/dL Albumin (3.5-5.0) g/dL 05/24/16 05/24/16 05/24/16 Range/Units 03:00 03:00 03:00 RBC 3.17 L (4.30-5.90) m/uL Hgb 10.3 L (13.0-17.5) gm/dL Hct 30.6 L (39.0-53.0) % RDW 16.9 H (11.5-15.5) % Plt Count 147 L (150-450) k/uL Sodium 128 L (137-145) mmol/L Potassium 5.3 H (3.5-5.1) mmol/L Chloride 95 L (98-107) mmol/L Carbon Dioxide 20 L (22-30) mmol/L BUN 46 H (9-20) mg/dL Creatinine 6.30 H* (0.66-1.25) mg/dL Glucose 249 H (74-99) mg/dL POC Glucose (mg/dL) (75-99) mg/dL Hemoglobin A1c 8.4 H (4.2-6.1) % Calcium 6.9 L (8.4-10.2) mg/dL CK-MB (CK-2) (0.0-2.4) ng/mL Troponin I (0.000-0.034) ng/mL Total Protein 5.4 L (6.3-8.2) g/dL Albumin 2.8 L (3.5-5.0) g/dL 05/24/16 05/24/16 05/24/16 Range/Units 03:00 06:09 11:16 RBC (4.30-5.90) m/uL Hgb (13.0-17.5) gm/dL Hct (39.0-53.0) % RDW (11.5-15.5) % Plt Count (150-450) k/uL Sodium (137-145) mmol/L Potassium (3.5-5.1) mmol/L Chloride (98-107) mmol/L Carbon Dioxide (22-30) mmol/L BUN (9-20) mg/dL Creatinine (0.66-1.25) mg/dL Glucose (74-99) mg/dL POC Glucose (mg/dL) 193 H 186 H (75-99) mg/dL Hemoglobin A1c (4.2-6.1) % Calcium (8.4-10.2) mg/dL CK-MB (CK-2) 3.5 H* (0.0-2.4) ng/mL Troponin I 0.037 H* (0.000-0.034) ng/mL Total Protein (6.3-8.2) g/dL Albumin (3.5-5.0) g/dL 05/24/16 Range/Units 13:05 RBC (4.30-5.90) m/uL Hgb (13.0-17.5) gm/dL Hct (39.0-53.0) % RDW (11.5-15.5) % Plt Count (150-450) k/uL Sodium (137-145) mmol/L Potassium (3.5-5.1) mmol/L Chloride (98-107) mmol/L Carbon Dioxide (22-30) mmol/L BUN (9-20) mg/dL Creatinine (0.66-1.25) mg/dL Glucose (74-99) mg/dL POC Glucose (mg/dL) 159 H (75-99) mg/dL Hemoglobin A1c (4.2-6.1) % Calcium (8.4-10.2) mg/dL CK-MB (CK-2) (0.0-2.4) ng/mL Troponin I (0.000-0.034) ng/mL Total Protein (6.3-8.2) g/dL Albumin (3.5-5.0) g/dL Laboratory Results WBC 10.0 k/uL (3.8-10.6) 05/24/16 03:00 RBC 3.17 m/uL (4.30-5.90) L 05/24/16 03:00 Hgb 10.3 gm/dL (13.0-17.5) L 05/24/16 03:00 Hct 30.6 % (39.0-53.0) L 05/24/16 03:00 MCV 96.4 fL (80.0-100.0) 05/24/16 03:00 MCH 32.3 pg (25.0-35.0) 05/24/16 03:00 MCHC 33.5 g/dL (31.0-37.0) 05/24/16 03:00 RDW 16.9 % (11.5-15.5) H 05/24/16 03:00 Plt Count 147 k/uL (150-450) L 05/24/16 03:00 Neutrophils % 84 % 05/23/16 15:07 Lymphocytes % 9 % 05/23/16 15:07 Monocytes % 3 % 05/23/16 15:07 Eosinophils % 3 % 05/23/16 15:07 Basophils % 0 % 05/23/16 15:07 Neutrophils # 9.0 k/uL (1.3-7.7) H 05/23/16 15:07 Lymphocytes # 1.0 k/uL (1.0-4.8) 05/23/16 15:07 Monocytes # 0.3 k/uL (0-1.0) 05/23/16 15:07 Eosinophils # 0.3 k/uL (0-0.7) 05/23/16 15:07 Basophils # 0.0 k/uL (0-0.2) 05/23/16 15:07 Hypochromasia Slight 05/23/16 15:07 Anisocytosis Slight 05/24/16 03:00 Macrocytosis Slight 05/24/16 03:00 PT 10.7 sec (9.0-12.0) 05/23/16 15:07 INR 1.1 (<1.1) 05/23/16 15:07 APTT 21.8 sec (22.0-30.0) L 05/23/16 15:07 Sodium 128 mmol/L (137-145) L 05/24/16 03:00 Potassium 5.3 mmol/L (3.5-5.1) H 05/24/16 03:00 Chloride 95 mmol/L (98-107) L 05/24/16 03:00 Carbon Dioxide 20 mmol/L (22-30) L 05/24/16 03:00 Anion Gap 13 mmol/L 05/24/16 03:00 BUN 46 mg/dL (9-20) H 05/24/16 03:00 Creatinine 6.30 mg/dL (0.66-1.25) H* 05/24/16 03:00 Est GFR (MDRD) Af Amer 12 (>60 ml/min/1.73 sqM) 05/24/16 03:00 Est GFR (MDRD) Non-Af 10 (>60 ml/min/1.73 sqM) 05/24/16 03:00 Glucose 249 mg/dL (74-99) H 05/24/16 03:00 POC Glucose (mg/dL) 159 mg/dL (75-99) H 05/24/16 13:05 POC Glu Mattress Finisher ID [email or web address] 05/24/16 13:[address] Glu mg/dL 194 mg/dL 05/24/16 03:00 Hemoglobin A1c 8.4 % (4.2-6.1) H 05/24/16 03:00 Uric Acid 6.2 mg/dL (3.5-8.5) 05/24/16 06:20 Calcium 6.9 mg/dL (8.4-10.2) L 05/24/16 03:00 Magnesium 2.3 mg/dL (1.6-2.3) 05/23/16 15:07 Total Bilirubin 0.4 mg/dL (0.2-1.3) 05/24/16 03:00 AST 18 U/L (17-59) 05/24/16 03:00 ALT 34 U/L (21-72) 05/24/16 03:00 Alkaline Phosphatase 105 U/L (38-126) 05/24/16 03:00 Total Creatine Kinase 100 U/L (55-170) 05/23/16 15:07 CK-MB (CK-2) 3.5 ng/mL (0.0-2.4) H* 05/24/16 03:00 CK-MB (CK-2) Rel Index 4.7 05/23/16 15:07 Troponin I 0.037 ng/mL (0.000-0.034) H* 05/24/16 03:00 NT-Pro-B Natriuret Pep [id number] pg/mL 05/23/16 15:07 Total Protein 5.4 g/dL (6.3-8.2) L 05/24/16 03:00 Albumin 2.8 g/dL (3.5-5.0) L 05/24/16 03:00 Amylase <30 U/L (30-110) L 05/23/16 15:07 Lipase <10 U/L (23-300) L 05/23/16 15:07 Thrombosis Risk Factor Assmnt - DVT/VTE Prophylaxis DVT/VTE Prophylaxis: Low risk, early ambulation encouraged - Choose All That Apply Any of the Below Risk Factors Present?: Yes Each Factor Represents 1 point: Heart failure (<1month), Swollen legs (current) Other Risk Factors: No Other congenital or acquired thrombophilia - If yes, enter type in comment: No Thrombosis Risk Factor Assessment Total Risk Factor Score: 2 Thrombosis Risk Factor Assessment Level: Low Risk Assessment and Plan Plan: 1. acute anasarca with chronic worsening edema secondary to missed dialysis days from severe or shortness right base generalized pain inability to ambulate secondary to pain impairing his mobilization towards following his dialysis schedule. Patient has seen Dr. Li Payne in the past. Patient would be requiring dialysis for his routine dialysis days on top of extra dialyses as requested. Patient. 2. severe polyneuropathy with uncontrolled neuralgia, uncontrolled chronic pain , patient was seen by Dr. Rendon he is his personal chronic pain doctor, medications will be titrated by him, we will going to start on gabapentin 100 mg 3 times a day 3. gastroparesis requiringgastric stimulator 4. End-stage renal disease on hemodialysis Monday, , Monday. Consult with nephrology and he is scheduled for hemodialysis today. 5. Chronic pain syndrome. Patient is normally on Percocet 10 one3 times a day increased to 4 times a day until reevaluation by Dr. Rendon pain physician and Flexeril 10 mg 3 times daily. Patient currently on Dilaudid 1 mg every 2 hours for acute pain. 6. Hypertension. Continue losartan 50 mg daily. Hydralazine 20 mg IV push every 4 hours as needed. Lopressor IV added as needed for tachycardia while patient is unable to tolerate oral meds. 7. Diabetes mellitus type 1 uncontrolled patient is on Humalog, Lantus 10 units daily and monitor for hypoglycemia. 8. Severe cardiomyopathy improved and chronic systolic heart failure with ejection fraction currently at 45-50% from a previous of 20% followed by Dr. Branch. Continue Lasix 40 mg twice daily, Cardizem 120 mg daily. 9. Chronic bipolar disorder. 10. Seizure disorder. patient was on Keppra 500 mg twice daily however this does not present on his current med list. 10. Generalized anxiety and panic attack. 11. Chronic diabetic neuropathy. start Neurontin 100 mg 3 times daily. 12. Chronic anemia due to chronic kidney disease. Patient has been on iron supplement and Procrit in the past. 13. Gastrointestinal prophylaxis. Continue Pepcid 20 mg at bedtime. 14. DVT prophylaxis. Early ambulation caprinin score of 2, low risk no need for pharmacological Intervention 15. Patient will be admitted to the hospital for a minimum of 2 night stay. Discharge plan: return home Time with Patient: Greater than 30
[2016-05-25] MEDS: HYDROmorphone 1 MG/ML 1 ML SYRINGE IVP PRN ×6 (00:07→22:08)
[2016-05-25 06:40] LABS: Glucose,Whole Blood 40 mg/dL (75-99)
[2016-05-25 06:40] LABS: Glucose,Whole Blood 40 mg/dL (75-99)
[2016-05-25] MEDS ORDERED: DEXTROSE 50%-WATER 50 ML SYRINGE IVP ONE (06:41)
[2016-05-25] MEDS: DEXTROSE 50%-WATER 50 ML SYRINGE IVP STA ×2 (06:45→07:19)
[2016-05-25] MEDS: INSULIN LISPRO (humaLOG) 300 UNIT/3 ML VIAL SQ SCH ×4 (06:47→21:24)
[2016-05-25 07:02] LABS: Glucose,Whole Blood 87 mg/dL (75-99)
[2016-05-25] MEDS: PANTOPRAZOLE 40 MG TABLET PO SCH (07:15)
[2016-05-25 07:45] LABS: Glucose,Whole Blood 73 mg/dL (75-99)
[2016-05-25] MEDS ORDERED: DEXTROSE 50%-WATER 50 ML SYRINGE IVP STA (08:37)
[2016-05-25] MEDS: INSULIN GLARGINE 100 UNIT/ML 10 ML VIAL SQ SCH (08:39)
[2016-05-25] MEDS: ONDANSETRON 4 MG/2 ML VIAL IVP PRN ×3 (08:44→22:08)
[2016-05-25 09:57] VITALS: BMI 21.7
[2016-05-25] MEDS: FUROSEMIDE 10 MG/ML 10 ML VIAL IV SCH ×2 (10:07→16:23)
[2016-05-25] MEDS: oxyCODONE-APAP 10-325MG 1 EACH TAB PO SCH ×2 (10:07→13:15)
[2016-05-25] MEDS: hydrALAZINE HCL 50 MG TAB PO SCH ×3 (10:08→21:19)
[2016-05-25] MEDS: ASPIRIN 325 MG TAB PO SCH (10:08)
[2016-05-25 11:07] LABS: Glucose,Whole Blood 75 mg/dL (75-99)
[2016-05-25 13:00] LABS: Glucose,Whole Blood 94 mg/dL (75-99)
--- NOTE | 2016-05-25 14:08 | PN ---
Shyam is a 35-year-old gentleman with cardiomyopathy, end-stage renal disease on hemodialysis who is admitted to hospital with bilateral lower extremity edema. He has improved somewhat with dialysis. Still has some leg edema and has pleural effusion. I believe the answer to his problem is dialysis. On exam, comfortable at rest. Vital signs are stable. Chest exam reveals diminished air entry at the bases. Heart exam reveals first and second heart sounds. No gallop. Exam of extremities reveals bilateral pitting edema. ASSESSMENT: 1. Acute exacerbation of chronic systolic heart failure. 2. End-stage renal disease on hemodialysis. PLAN: Continue the IV Lasix. Continue hemodialysis. Prognosis guarded.
--- NOTE | 2016-05-25 14:27 | PN ---
Patient is seen for follow-up for end-stage renal disease. He was admitted to the hospital with increased lower extremity edema and weakness. He is currently having nausea and vomiting. Patient has been with hemodialysis as outpatient. He has had worsening lower extremity edema. On examination today, blood pressure is 151/82, heart rate 92 per minute. He is afebrile. Examination of the heart S1 and S2. Examination of the lungs: Bilateral breath sounds are heard. ABDOMEN: Soft, nontender. Examination of lower extremities shows edema 2+ bilaterally. BEARING INSPECTOR exam is grossly intact. Patient is moving all 4 extremities. Labs show from yesterday, serum potassium of 5.3 mEq/L. ASSESSMENT: 1. End-stage renal disease on hemodialysis on a Monday, , Monday schedule as outpatient. 2. Fluid overload with increased lower extremity edema and patient will be dialyzed again tomorrow. 3. Nausea and vomiting secondary to gastroparesis. Patient has gastric pacer. 4. Multiple falls at home and multiple social issues and patient most likely not able to take care of himself at home. The patient was evaluated by Dr. Rendon and ECF placement is being considered. PLAN: Hemodialysis today mainly for ultrafiltration and then repeat dialysis again tomorrow, as tomorrow is his regular day.
[2016-05-25] MEDS ORDERED: MD COMMUNICATION TO PHARMACY 1 EACH MISC PO PRN (15:20)
--- NOTE | 2016-05-25 15:36 | P.PN ---
Subjective This is a 35-year-old male. He is a patient of Dr. Tobias Conway with past mental history of end-stage renal disease on hemodialysis Monday and Monday, diabetes mellitus type 1 uncontrolled, diabetic gastroparesis with nerve stimulator in place, chronic anemia, diabetic polyneuropathy, generalized anxiety disorder, bipolar disorder, seizure disorder, hypertension, hyperlipidemia, chronic pain syndrome, gastroesophageal reflux disease, history of MRSA infection, retinopathy, advanced cardiomyopathy with ejection fraction 20% followed by cardiology. Patient was seen in emergency room secondary to increasing shortness of breath as he missed his scheduled dialysis 4 days ago on a Monday as patient has increasing difficulties with his uncontrolled pain despite Percocet 10 325 at 3 times a day. He follows with Dr. Rendon for his chronic pain. Patient's pain is generalized shooting burning throbbing constant with achiness and spasms. He has increasing edema from below the waist , developed shortness of breath with PND. Patient denies any fever no chills. No changes in nausea or vomiting appetite is similar to previous. No dysuria no hematuria no diarrhea no vision changes He required ER evaluation for treatment of congestive heart failure in the emergency room imaging studies include Chest x-ray shows evidence of pulmonary venous congestion with scattered areas of increased obesity and pleural effusions consider volume overload. , EKG shows sinus rhythm with poor R -wave progression and nonspecific ST-T wave changes, troponin elevated at 0.0 4.0 3.03 creatinine is 6.3. Patient is not anuric 2/: Blood sugar this morning was 40 and repeat 87. He received 2 doses of D50. Patient has been seen by Dr. Rendon most likely patient will require subacute placement but did not undress pain medication. Patient continues to complain of significant and severe pain. Patient underwent hemodialysis yesterday very late and is scheduled for today as well. He has been seen by pipeline superintendent division for elevated troponin most likely due to renal failure. Echocardiogram reveals mild mitral regurgitation, moderate tricuspid regurgitation, moderate pulmonary hypertension, large pleural effusion, mild concentric left ventricular hypertrophy, EF 45-50% trace aortic regurgitation. Social work is working on a public guardian. Patient's mom has brought in patient's to see bowel which will be used in place of Lantus as his sugars are better controlled. Insulins are on hold for now as patient has had no food intake and did start vomiting this morning currently on Zofran. Objective - Vital Signs Vital signs: Vital Signs Temp 98.4 F 05/25/16 08:00 Pulse 92 05/25/16 08:00 Resp 16 05/25/16 08:00 BP 151/82 05/25/16 08:00 Pulse Ox 98 05/25/16 08:00 Intake & Output 05/24/16 05/25/16 05/25/16 18:59 06:59 18:59 Intake Total 500 Output Total 900 480 Balance -400 -480 Weight 72.5 kg Intake: Oral 500 Output: Urine 900 480 Other: Voiding Method Urinal Urinal Urinal # Voids 1 0 - Exam General appearance: cooperative, no acute distress, thin - EENT Eyes: anicteric sclerae, EOMI, PERRLA, dentition normal ENT: hard of hearing, normal oropharynx - Neck Neck: no lymphadenopathy, normal ROM, no other, no rigidity, no stridor, no thyromegaly Thyroid: bilateral: normal size - Respiratory Respiratory: bilateral: CTA, diminished - Cardiovascular Rhythm: regular Heart sounds: normal: S1 Abnormal Heart Sounds: systolic murmur, no diastolic murmur, no rub, no S3 Gallop, no S4 Gallop, no click, no other leg Peripheral Edema: bilateral: 3+ - Gastrointestinal General gastrointestinal: no absent bowel sounds, no decreased bowel sounds, distended, no hepatomegaly, no hyperactive bowel sounds, normal bowel sounds, no organomegaly, no rigid, no scaphoid, soft, no splenomegaly, no tenderness, no umbilical hernia, no ventral hernia - Integumentary Integumentary: decreased turgor, normal - Neurologic Neurologic: CNII-XII intact - Musculoskeletal Musculoskeletal: generalized weakness, strength equal bilaterally - Psychiatric Psychiatric: A&O x's 3, appropriate affect, intact judgment & insight - Labs CBC & Chem 7: 05/24/16 03:00 05/24/16 03:00 Labs: Abnormal Lab Results - Last 24 Hours (Table) 05/24/16 05/24/16 05/24/16 Range/Units 03:00 06:20 11:16 POC Glucose (mg/dL) 186 H (75-99) mg/dL Hemoglobin A1c 8.4 H (4.2-6.1) % Magnesium 2.4 H (1.6-2.3) mg/dL 05/24/16 05/24/16 05/24/16 Range/Units 13:05 16:44 21:06 POC Glucose (mg/dL) 159 H 114 H 128 H (75-99) mg/dL Hemoglobin A1c (4.2-6.1) % Magnesium (1.6-2.3) mg/dL 05/25/16 05/25/16 05/25/16 Range/Units 06:38 06:39 07:44 POC Glucose (mg/dL) 40 L 40 L 73 L (75-99) mg/dL Hemoglobin A1c (4.2-6.1) % Magnesium (1.6-2.3) mg/dL Assessment and Plan Plan: 1. acute anasarca with chronic worsening edema secondary to missed dialysis days from severe or shortness right base generalized pain inability to ambulate secondary to pain impairing his mobilization towards following his dialysis schedule. Patient has seen Dr. Julieta Payne in the past. Patient would be requiring dialysis for his routine dialysis days on top of extra dialyses as requested. Patient. 2. severe polyneuropathy with uncontrolled neuralgia, uncontrolled chronic pain , patient was seen by Dr. Rendon he is his personal chronic pain doctor, medications will be titrated by him, we will going to start on gabapentin 100 mg 3 times a day 3. gastroparesis requiringgastric stimulator 4. End-stage renal disease on hemodialysis Monday, , Monday. Consult with nephrology and he is scheduled for hemodialysis today. 5. Chronic pain syndrome. Patient is normally on Percocet 10 one3 times a day increased to 4 times a day until reevaluation by Dr. Rendon pain physician and Flexeril 10 mg 3 times daily. Patient currently on Dilaudid 1 mg every 2 hours for acute pain. 6. Hypertension. Continue losartan 50 mg daily. Hydralazine 20 mg IV push every 4 hours as needed. Lopressor IV added as needed for tachycardia while patient is unable to tolerate oral meds. 7. Diabetes mellitus type 1 uncontrolled patient is on Humalog, Lantus 10 units daily and monitor for hypoglycemia. 8. Severe cardiomyopathy improved and chronic systolic heart failure with ejection fraction currently at 45-50% from a previous of 20% followed by Dr. Branch. Continue Lasix 40 mg twice daily, Cardizem 120 mg daily. 9. Chronic bipolar disorder. 10. Seizure disorder. patient was on Keppra 500 mg twice daily however this does not present on his current med list. 10. Generalized anxiety and panic attack. 11. Chronic diabetic neuropathy. start Neurontin 100 mg 3 times daily. 12. Chronic anemia due to chronic kidney disease. Patient has been on iron supplement and Procrit in the past. 13. Gastrointestinal prophylaxis. Continue Pepcid 20 mg at bedtime. 14. DVT prophylaxis. Early ambulation caprinin score of 2, low risk no need for pharmacological Intervention 15. Patient will be admitted to the hospital for a minimum of 2 night stay. Discharge plan: Subacute rehab. Social work is working on public guardian Impression and plan of care have been directed as dictated by the signing physician. Gretel Freitas nurse practitioner acting as scribe for signing physician. Time with Patient: Greater than 30
[2016-05-25 15:58] LABS: Glucose,Whole Blood 115 mg/dL (75-99)
[2016-05-25 16:53] LABS: Glucose,Whole Blood 109 mg/dL (75-99)
[2016-05-25] MEDS: MORPHINE SULFATE IR 15 MG TABLET PO SCH ×2 (17:46→21:18)
[2016-05-25] MEDS: levETIRAcetam 500 MG TAB PO SCH (21:20)
[2016-05-25 21:26] LABS: Glucose,Whole Blood 154 mg/dL (75-99)
[2016-05-26] MEDS: MORPHINE SULFATE IR 15 MG TABLET PO SCH ×7 (01:08→23:50)
[2016-05-26] MEDS: FUROSEMIDE 10 MG/ML 10 ML VIAL IV SCH ×4 (01:09→23:51)
[2016-05-26] MEDS: HYDROmorphone 1 MG/ML 1 ML SYRINGE IVP PRN ×4 (04:02→22:03)
[2016-05-26 05:53] LABS: Glucose,Whole Blood 342 mg/dL (75-99)
[2016-05-26] MEDS: INSULIN LISPRO (humaLOG) 300 UNIT/3 ML VIAL SQ SCH ×4 (06:16→20:21)
[2016-05-26 06:24] LABS: Anisocytosis Slight; CH 31.5; CHCM 32.4; HCT 26.5 % (39.0-53.0); HDW 3.05; Hypochromasia Slight; MCH 32.2 pg (25.0-35.0); MCHC 32.9 g/dL (31.0-37.0); MCV 97.9 fL (80.0-100.0); Macrocytosis Slight; Mean Platelet Volume 8.6; RDW 16.7 % (11.5-15.5)
[2016-05-26 06:27] LABS: HGB 8.7 gm/dL (13.0-17.5)
[2016-05-26 06:47] LABS: Calcium 6.9 mg/dL (8.4-10.2); Potassium 5.9 mmol/L (3.5-5.1)
[2016-05-26 06:48] LABS: Total Bilirubin 0.6 mg/dL (0.2-1.3); Total Protein 5.5 g/dL (6.3-8.2)
[2016-05-26] MEDS: PANTOPRAZOLE 40 MG TABLET PO SCH (09:21)
[2016-05-26] MEDS: ASPIRIN 325 MG TAB PO SCH (09:21)
[2016-05-26] MEDS: levETIRAcetam 500 MG TAB PO SCH ×2 (09:21→20:22)
[2016-05-26] MEDS: hydrALAZINE HCL 50 MG TAB PO SCH ×3 (09:21→22:01)
[2016-05-26] MEDS: ASPIRIN 81 MG CHEW PO SCH (09:22)
[2016-05-26] MEDS: TRESIBA (INSULIN DEGLUDEC) SQ SCH (09:23)
--- NOTE | 2016-05-26 11:00 | P.PN ---
Subjective This is a 35-year-old male. He is a patient of Dr. Tobias Conway with past mental history of end-stage renal disease on hemodialysis Monday and Monday, diabetes mellitus type 1 uncontrolled, diabetic gastroparesis with nerve stimulator in place, chronic anemia, diabetic polyneuropathy, generalized anxiety disorder, bipolar disorder, seizure disorder, hypertension, hyperlipidemia, chronic pain syndrome, gastroesophageal reflux disease, history of MRSA infection, retinopathy, advanced cardiomyopathy with ejection fraction 20% followed by cardiology. Patient was seen in emergency room secondary to increasing shortness of breath as he missed his scheduled dialysis 4 days ago on a Monday as patient has increasing difficulties with his uncontrolled pain despite Percocet 10 325 at 3 times a day. He follows with Dr. Rendon for his chronic pain. Patient's pain is generalized shooting burning throbbing constant with achiness and spasms. He has increasing edema from below the waist , developed shortness of breath with PND. Patient denies any fever no chills. No changes in nausea or vomiting appetite is similar to previous. No dysuria no hematuria no diarrhea no vision changes He required ER evaluation for treatment of congestive heart failure in the emergency room imaging studies include Chest x-ray shows evidence of pulmonary venous congestion with scattered areas of increased obesity and pleural effusions consider volume overload. , EKG shows sinus rhythm with poor R -wave progression and nonspecific ST-T wave changes, troponin elevated at 0.0 4.0 3.03 creatinine is 6.3. Patient is not anuric 2/: Blood sugar this morning was 40 and repeat 87. He received 2 doses of D50. Patient has been seen by Dr. Rendon most likely patient will require subacute placement but did not undress pain medication. Patient continues to complain of significant and severe pain. Patient underwent hemodialysis yesterday very late and is scheduled for today as well. He has been seen by business lawyer for elevated troponin most likely due to renal failure. Echocardiogram reveals mild mitral regurgitation, moderate tricuspid regurgitation, moderate pulmonary hypertension, large pleural effusion, mild concentric left ventricular hypertrophy, EF 45-50% trace aortic regurgitation. Social work is working on a public guardian. Patient's mom has brought in patient's to see bowel which will be used in place of Lantus as his sugars are better controlled. Insulins are on hold for now as patient has had no food intake and did start vomiting this morning currently on Zofran. 05/26: BUN 48, creatinine 5.99, potassium 5.9, sodium 131, hemoglobin 8.7. Blood glucose levels have been running 154-333. Patient will be resumed on his home medication of Tresiba which was brought from home. Dr. Rendon has placed the patient on morphine sulfate IR at 15 mg orally every 4 hours scheduled and Dilaudid 1 mg IV push every 6 hours as needed. Patient is continuing to complain of pain and is complaining that he feels like no one is listening to him or helping him. Therapies are in place but patient is refusing to participate. Patient states that he did not sleep last night. Vomiting is improved. Social work is following for subacute rehab at [facility] and obtaining public guardian. Objective - Vital Signs Vital signs: Vital Signs Temp 97.6 F 05/25/16 20:00 Pulse 94 05/26/16 04:00 Resp 16 05/26/16 04:00 BP 142/76 05/26/16 04:00 Pulse Ox 96 05/26/16 04:00 Intake & Output 05/25/16 05/26/16 05/26/16 18:59 06:59 18:59 Intake Total 100 720 Balance 100 720 Weight 72.5 kg 65.2 kg Intake: Oral 100 720 Other: Voiding Method Urinal Urinal # Voids 1 - Exam General appearance: cooperative, no acute distress, thin - EENT Eyes: anicteric sclerae, EOMI, PERRLA, dentition normal ENT: hard of hearing, normal oropharynx - Neck Neck: no lymphadenopathy, normal ROM, no other, no rigidity, no stridor, no thyromegaly Thyroid: bilateral: normal size - Respiratory Respiratory: bilateral: CTA, diminished - Cardiovascular Rhythm: regular Heart sounds: normal: S1 Abnormal Heart Sounds: systolic murmur, no diastolic murmur, no rub, no S3 Gallop, no S4 Gallop, no click, no other leg Peripheral Edema: bilateral: 3+ - Gastrointestinal General gastrointestinal: no absent bowel sounds, no decreased bowel sounds, distended, no hepatomegaly, no hyperactive bowel sounds, normal bowel sounds, no organomegaly, no rigid, no scaphoid, soft, no splenomegaly, no tenderness, no umbilical hernia, no ventral hernia - Integumentary Integumentary: decreased turgor, normal - Neurologic Neurologic: CNII-XII intact - Musculoskeletal Musculoskeletal: generalized weakness, strength equal bilaterally - Psychiatric Psychiatric: A&O x's 3, appropriate affect, intact judgment & insight - Labs CBC & Chem 7: 05/26/16 06:03 05/26/16 06:03 Labs: Abnormal Lab Results - Last 24 Hours (Table) 05/25/16 05/25/16 05/25/16 Range/Units 15:56 16:43 21:22 RBC (4.30-5.90) m/uL Hgb (13.0-17.5) gm/dL Hct (39.0-53.0) % RDW (11.5-15.5) % Plt Count (150-450) k/uL Sodium (137-145) mmol/L Potassium (3.5-5.1) mmol/L Chloride (98-107) mmol/L BUN (9-20) mg/dL Creatinine (0.66-1.25) mg/dL Glucose (74-99) mg/dL POC Glucose (mg/dL) 115 H 109 H 154 H (75-99) mg/dL Calcium (8.4-10.2) mg/dL Total Protein (6.3-8.2) g/dL Albumin (3.5-5.0) g/dL 05/26/16 05/26/16 05/26/16 Range/Units 05:51 06:03 06:03 RBC 2.70 L (4.30-5.90) m/uL Hgb 8.7 L D (13.0-17.5) gm/dL Hct 26.5 L (39.0-53.0) % RDW 16.7 H (11.5-15.5) % Plt Count 125 L (150-450) k/uL Sodium 131 L (137-145) mmol/L Potassium 5.9 H (3.5-5.1) mmol/L Chloride 96 L (98-107) mmol/L BUN 48 H (9-20) mg/dL Creatinine 5.99 H* (0.66-1.25) mg/dL Glucose 333 H (74-99) mg/dL POC Glucose (mg/dL) 342 H (75-99) mg/dL Calcium 6.9 L (8.4-10.2) mg/dL Total Protein 5.5 L (6.3-8.2) g/dL Albumin 2.8 L (3.5-5.0) g/dL Assessment and Plan Plan: 1. acute anasarca with chronic worsening edema secondary to missed dialysis days from severe or shortness right base generalized pain inability to ambulate secondary to pain impairing his mobilization towards following his dialysis schedule. Patient has seen Dr. Julieta Payne in the past. Patient would be requiring dialysis for his routine dialysis days on top of extra dialyses as requested. 2. severe polyneuropathy with uncontrolled neuralgia, uncontrolled chronic pain , patient was seen by Dr. Rendon he is his personal chronic pain doctor, medications will be titrated by him Dr. Rendon has ordered morphine sulfate IR 15 mg orally every 4 hours scheduled and Dilaudid 1 mg IV push every 6 hours as needed. 3. gastroparesis requiring gastric stimulator 4. End-stage renal disease on hemodialysis Monday, , Monday. Consult with nephrology and he is scheduled for hemodialysis. 5. Chronic pain syndrome. Continue morphine sulfate IR 15 mg orally every 4 hours scheduled and Dilaudid 1 mg IV push every 6 hours as needed. 6. Hypertension. Continue Lasix 60 mg IV every 8 hours, hydralazine 50 mg 3 times daily. 7. Diabetes mellitus type 1 uncontrolled patient is on Humalog, Lantus 10 units daily and monitor for hypoglycemia. 8. Severe cardiomyopathy improved and chronic systolic heart failure with ejection fraction currently at 45-50% from a previous of 20% followed by Dr. Branch. Continue Lasix 40 mg twice daily, Cardizem 120 mg daily. 9. Chronic bipolar disorder. 10. Seizure disorder. patient was on Keppra 500 mg twice daily. 10. Generalized anxiety and panic attack. 11. Chronic diabetic neuropathy. start Neurontin 100 mg 3 times daily. 12. Chronic anemia due to chronic kidney disease. Patient has been on iron supplement and Procrit in the past. 13. Gastrointestinal prophylaxis. Continue Protonix 14. DVT prophylaxis. Early ambulation caprinin score of 2, low risk no need for pharmacological Intervention Discharge plan: [facility] in the next 24-48 hours. Social work is working on public guardian Impression and plan of care have been directed as dictated by the signing physician. Gretel Freitas nurse practitioner acting as scribe for signing physician. Time with Patient: Greater than 30
--- NOTE | 2016-05-26 11:07 | P.PN ---
Subjective Patient is seen in follow-up for end-stage renal disease. He is maintained on hemodialysis on a Monday schedule via AV graft. Patient presented with worsening lower extremity edema. He underwent an extra treatment of hemodialysis yesterday. States swelling is gradually improving. Denies chest pain or shortness of breath. Vital signs are stable. General: The patient appeared well nourished and normally developed. HEENT: Head exam is unremarkable. Neck is without jugular venous distension. LUNGS: Lungs are clear to auscultation and percussion. Breath sounds decreased. HEART: Rate and Rhythm are regular. First and second heart sounds normal. No murmurs, rubs or gallops. ABDOMEN: Abdominal exam reveals normal bowel sounds. Non-tender and non- distended. No evidence of peritonitis. EXTREMITITES: 1+ edema. Objective - Vital Signs Vital signs: Vital Signs Temp 98.1 F 05/26/16 08:00 Pulse 94 05/26/16 08:00 Resp 20 05/26/16 08:00 BP 138/80 05/26/16 08:00 Pulse Ox 98 05/26/16 08:00 Intake & Output 05/25/16 05/26/16 05/26/16 18:59 06:59 18:59 Intake Total 100 720 160 Balance 100 720 160 Weight 72.5 kg 65.2 kg Intake: Oral 100 720 160 Other: Voiding Method Urinal Urinal Urinal # Voids 1 - Labs CBC & Chem 7: 05/26/16 06:03 05/26/16 06:03 Labs: Abnormal Lab Results - Last 24 Hours (Table) 05/25/16 05/25/16 05/25/16 Range/Units 15:56 16:43 21:22 RBC (4.30-5.90) m/uL Hgb (13.0-17.5) gm/dL Hct (39.0-53.0) % RDW (11.5-15.5) % Plt Count (150-450) k/uL Sodium (137-145) mmol/L Potassium (3.5-5.1) mmol/L Chloride (98-107) mmol/L BUN (9-20) mg/dL Creatinine (0.66-1.25) mg/dL Glucose (74-99) mg/dL POC Glucose (mg/dL) 115 H 109 H 154 H (75-99) mg/dL Calcium (8.4-10.2) mg/dL Total Protein (6.3-8.2) g/dL Albumin (3.5-5.0) g/dL 05/26/16 05/26/16 05/26/16 Range/Units 05:51 06:03 06:03 RBC 2.70 L (4.30-5.90) m/uL Hgb 8.7 L D (13.0-17.5) gm/dL Hct 26.5 L (39.0-53.0) % RDW 16.7 H (11.5-15.5) % Plt Count 125 L (150-450) k/uL Sodium 131 L (137-145) mmol/L Potassium 5.9 H (3.5-5.1) mmol/L Chloride 96 L (98-107) mmol/L BUN 48 H (9-20) mg/dL Creatinine 5.99 H* (0.66-1.25) mg/dL Glucose 333 H (74-99) mg/dL POC Glucose (mg/dL) 342 H (75-99) mg/dL Calcium 6.9 L (8.4-10.2) mg/dL Total Protein 5.5 L (6.3-8.2) g/dL Albumin 2.8 L (3.5-5.0) g/dL Assessment and Plan Plan: Assessment: #1. End-stage renal disease maintained on hemodialysis on a Monday schedule via left upper extremity AV graft. #2. Volume overload. #3. Insulin-dependent diabetes mellitus. #4. Hyperkalemia secondary to chronic kidney disease as well as hyperglycemia. #5. Hyponatremia secondary to hyperglycemia and hyperkalemia. #6. Hypertension with chronic kidney disease. Controlled. #7. Debility. Plan: Hemodialysis today. May need subacute rehab upon discharge. Nephrocaps daily. Advised type blood sugar control.
[2016-05-26 11:55] LABS: Glucose,Whole Blood 211 mg/dL (75-99)
[2016-05-26] MEDS ORDERED: DARBEPOETIN ALFA 40 MCG/0.4 ML SYRINGE SQ SCH (12:00)
[2016-05-26] MEDS ORDERED: GELATIN SPONGE,ABSORB (SMALL) 1 EACH SPONGE ONE (13:50)
--- NOTE | 2016-05-26 14:03 | P.PN ---
Subjective Principal diagnosis: Leg swelling This is a 35-year-old gentleman with history of diabetes, hypertension, end- stage renal disease on hemodialysis, who presented to the hospital initially with symptoms of bilateral lower extremity edema and generalized body discomfort and pain. Patient was also found to have abnormal BNP level and was initiated on IV Lasix. Echocardiogram with Doppler study was performed which revealed an ejection fraction of 45-50%. Patient has been diuresing on IV Lasix , weight is down today, he also underwent dialysis. Hemoglobin today 8.7, creatinine 5.9, potassium 5.9. Continues to complain of pain in his bilateral legs. Blood pressure 138/80 with a heart rate in the 80s. Objective - Vital Signs Vital signs: Vital Signs Temp 97.1 F L 05/26/16 11:32 Pulse 89 05/26/16 11:32 Resp 20 05/26/16 11:32 BP 139/80 05/26/16 11:32 Pulse Ox 98 05/26/16 08:00 Intake & Output 05/25/16 05/26/16 05/26/16 18:59 06:59 18:59 Intake Total 100 720 160 Output Total 600 Balance 100 720 -440 Weight 72.5 kg 65.2 kg Intake: Oral 100 720 160 Output: Urine 600 Other: Voiding Method Urinal Urinal Urinal # Voids 1 - Exam PHYSICAL EXAMINATION: HEENT: Head is atraumatic, normocephalic. Pupils equal, round. Neck is supple. There is no elevated jugular venous pressure. HEART EXAMINATION: Heart S1, S2 normal. No murmur or gallop heard. CHEST EXAMINATION: Lungs are clear with mild diminished air entry to bilateral bases ABDOMEN: Soft, nontender. Bowel sounds are heard. No organomegaly noted. EXTREMITIES: 2+ peripheral pulses with 1+ evidence of peripheral edema and no calf tenderness noted. Positive generalized pain in both legs. NEUROLOGIC patient is awake, alert and oriented -3. . - Labs CBC & Chem 7: 05/26/16 06:03 05/26/16 06:03 Labs: Abnormal Lab Results - Last 24 Hours (Table) 05/25/16 05/25/16 05/25/16 Range/Units 15:56 16:43 21:22 RBC (4.30-5.90) m/uL Hgb (13.0-17.5) gm/dL Hct (39.0-53.0) % RDW (11.5-15.5) % Plt Count (150-450) k/uL Sodium (137-145) mmol/L Potassium (3.5-5.1) mmol/L Chloride (98-107) mmol/L BUN (9-20) mg/dL Creatinine (0.66-1.25) mg/dL Glucose (74-99) mg/dL POC Glucose (mg/dL) 115 H 109 H 154 H (75-99) mg/dL Calcium (8.4-10.2) mg/dL Total Protein (6.3-8.2) g/dL Albumin (3.5-5.0) g/dL 05/26/16 05/26/16 05/26/16 Range/Units 05:51 06:03 06:03 RBC 2.70 L (4.30-5.90) m/uL Hgb 8.7 L D (13.0-17.5) gm/dL Hct 26.5 L (39.0-53.0) % RDW 16.7 H (11.5-15.5) % Plt Count 125 L (150-450) k/uL Sodium 131 L (137-145) mmol/L Potassium 5.9 H (3.5-5.1) mmol/L Chloride 96 L (98-107) mmol/L BUN 48 H (9-20) mg/dL Creatinine 5.99 H* (0.66-1.25) mg/dL Glucose 333 H (74-99) mg/dL POC Glucose (mg/dL) 342 H (75-99) mg/dL Calcium 6.9 L (8.4-10.2) mg/dL Total Protein 5.5 L (6.3-8.2) g/dL Albumin 2.8 L (3.5-5.0) g/dL 05/26/16 Range/Units 11:51 RBC (4.30-5.90) m/uL Hgb (13.0-17.5) gm/dL Hct (39.0-53.0) % RDW (11.5-15.5) % Plt Count (150-450) k/uL Sodium (137-145) mmol/L Potassium (3.5-5.1) mmol/L Chloride (98-107) mmol/L BUN (9-20) mg/dL Creatinine (0.66-1.25) mg/dL Glucose (74-99) mg/dL POC Glucose (mg/dL) 211 H (75-99) mg/dL Calcium (8.4-10.2) mg/dL Total Protein (6.3-8.2) g/dL Albumin (3.5-5.0) g/dL Assessment and Plan (1) Systolic CHF, acute on chronic Status: Acute (2) Nicotine dependence Status: Acute (3) Bipolar 1 disorder Status: Acute (4) Diabetes Status: Acute (5) HTN (hypertension) Status: Acute (6) Insulin dependent diabetes mellitus Status: Acute (7) Renal insufficiency Status: Acute Plan: From cardiology's perspective, we'll recommend to continue current dose of IV Lasix. Patient is also undergoing dialysis later today. Check daily lytes BUN and creatinine along with daily weights. DNP note has been reviewed, I agree with a documented findings and plan of care. Patient was seen and examined.
[2016-05-26] MEDS: FOLIC ACID-VIT B COMPLEX-VIT C 1 CAP PO SCH (16:31)
[2016-05-26 16:52] LABS: Glucose,Whole Blood 146 mg/dL (75-99)
[2016-05-26 20:21] LABS: Glucose,Whole Blood 65 mg/dL (75-99)
[2016-05-26] MEDS ORDERED: MELATONIN 3 MG TABLET PO SCH (21:00)
[2016-05-26 21:40] LABS: Glucose,Whole Blood 72 mg/dL (75-99)
[2016-05-26 22:04] LABS: Glucose,Whole Blood 105 mg/dL (75-99)
[2016-05-27] MEDS: MORPHINE SULFATE IR 15 MG TABLET PO SCH ×3 (03:00→13:01)
[2016-05-27] MEDS: HYDROmorphone 1 MG/ML 1 ML SYRINGE IVP PRN ×2 (04:02→10:35)
[2016-05-27] MEDS: INSULIN LISPRO (humaLOG) 300 UNIT/3 ML VIAL SQ SCH ×2 (07:15→12:10)
[2016-05-27 07:18] LABS: Glucose,Whole Blood 54 mg/dL (75-99)
[2016-05-27 07:40] LABS: Glucose,Whole Blood 60 mg/dL (75-99)
[2016-05-27 07:54] LABS: Potassium 5.8 mmol/L (3.5-5.1); Total Bilirubin 0.6 mg/dL (0.2-1.3); Total Protein 5.9 g/dL (6.3-8.2)
[2016-05-27 07:55] VITALS: BP 140/78; PULSE 85; RESP 18; TEMP 96.9
[2016-05-27 08:17] LABS: Glucose,Whole Blood 83 mg/dL (75-99)
[2016-05-27] MEDS: FUROSEMIDE 10 MG/ML 10 ML VIAL IV SCH (08:18)
[2016-05-27] MEDS: PANTOPRAZOLE 40 MG TABLET PO SCH (08:19)
[2016-05-27] MEDS: levETIRAcetam 500 MG TAB PO SCH (08:19)
[2016-05-27] MEDS: ASPIRIN 81 MG CHEW PO SCH (08:20)
[2016-05-27] MEDS: hydrALAZINE HCL 50 MG TAB PO SCH (08:20)
[2016-05-27] MEDS: TRESIBA (INSULIN DEGLUDEC) SQ SCH (08:21)
[2016-05-27] MEDS: FOLIC ACID-VIT B COMPLEX-VIT C 1 CAP PO SCH (08:22)
[2016-05-27 08:23] LABS: Anisocytosis Slight; CH 31.8; CHCM 33.5; HCT 28.5 % (39.0-53.0); HDW 3.11; HGB 9.1 gm/dL (13.0-17.5); MCH 30.5 pg (25.0-35.0); MCHC 31.8 g/dL (31.0-37.0); MCV 95.9 fL (80.0-100.0); Mean Platelet Volume 8.8; RBC 2.97 m/uL (4.30-5.90); RDW 16.6 % (11.5-15.5); WBC 9.1 k/uL (3.8-10.6)
[2016-05-27 11:11] LABS: Glucose,Whole Blood 139 mg/dL (75-99)
--- NOTE | 2016-05-27 11:26 | P.DS ---
Providers Date of admission: 05/23/16 17:42 Expected date of discharge: 05/27/16 Attending physician: Ina Chavis Consults: 05/24/16 13:20 Consult Physician Routine Consulting Provider: Luis Enrique Rendon Consult Reason/Comments: pain management Do you want consulting provider notified?: Yes 05/25/16 13:45 Consult Physician Routine Consulting Provider: Luis Enrique Rendon Consult Reason/Comments: pain management, not for rehab Do you want consulting provider notified?: Yes Primary care physician: [facility] Course: This is a 35-year-old male. He is a patient of Dr. Tobias Conway with past mental history of end-stage renal disease on hemodialysis Monday and Monday, diabetes mellitus type 1 uncontrolled, diabetic gastroparesis with nerve stimulator in place, chronic anemia, diabetic polyneuropathy, generalized anxiety disorder, bipolar disorder, seizure disorder, hypertension, hyperlipidemia, chronic pain syndrome, gastroesophageal reflux disease, history of MRSA infection, retinopathy, advanced cardiomyopathy with ejection fraction 20% followed by cardiology. Patient was seen in emergency room secondary to increasing shortness of breath as he missed his scheduled dialysis 4 days ago on a Monday as patient has increasing difficulties with his uncontrolled pain despite Percocet 10 325 at 3 times a day. He follows with Dr. Rendon for his chronic pain. Patient's pain is generalized shooting burning throbbing constant with achiness and spasms. He has increasing edema from below the waist , developed shortness of breath with PND. Patient denies any fever no chills. No changes in nausea or vomiting appetite is similar to previous. No dysuria no hematuria no diarrhea no vision changes He required ER evaluation for treatment of congestive heart failure in the emergency room imaging studies include Chest x-ray shows evidence of pulmonary venous congestion with scattered areas of increased obesity and pleural effusions consider volume overload. , EKG shows sinus rhythm with poor R -wave progression and nonspecific ST-T wave changes, troponin elevated at 0.0 4.0 3.03 creatinine is 6.3. Patient is not anuric 05/25: Blood sugar this morning was 40 and repeat 87. He received 2 doses of D50. Patient has been seen by Dr. Rendon most likely patient will require subacute placement but did not undress pain medication. Patient continues to complain of significant and severe pain. Patient underwent hemodialysis yesterday very late and is scheduled for today as well. He has been seen by cake washer for elevated troponin most likely due to renal failure. Echocardiogram reveals mild mitral regurgitation, moderate tricuspid regurgitation, moderate pulmonary hypertension, large pleural effusion, mild concentric left ventricular hypertrophy, EF 45-50% trace aortic regurgitation. Social work is working on a public guardian. Patient's mom has brought in patient's to see bowel which will be used in place of Lantus as his sugars are better controlled. Insulins are on hold for now as patient has had no food intake and did start vomiting this morning currently on Zofran. 05/26: BUN 48, creatinine 5.99, potassium 5.9, sodium 131, hemoglobin 8.7. Blood glucose levels have been running 154-333. Patient will be resumed on his home medication of Tresiba which was brought from home. Dr. Rendon has placed the patient on morphine sulfate IR at 15 mg orally every 4 hours scheduled and Dilaudid 1 mg IV push every 6 hours as needed. Patient is continuing to complain of pain and is complaining that he feels like no one is listening to him or helping him. Therapies are in place but patient is refusing to participate. Patient states that he did not sleep last night. Vomiting is improved. Social work is following for subacute rehab at [facility] and obtaining public guardian. 05/27: Patient's blood sugars were low this morning for which we will decrease to see but and change it to nighttime dosing. He continues to have ongoing problems with pain control. Patient is currently eating approximately 50% of his diet. Awaiting placement at subacute rehab. Patient will be discharged today in stable condition. Discharge diagnoses: 1. acute anasarca with chronic worsening edema secondary to missed dialysis days from severe or shortness of breath, generalized pain causing inability to ambulate , 2. severe polyneuropathy with uncontrolled neuralgia, uncontrolled chronic pain, 3. gastroparesis requiring gastric stimulator 4. End-stage renal disease on hemodialysis Monday, , Monday. 5. Chronic pain syndrome. 6. Hypertension. 7. Diabetes mellitus type 1 uncontrolled 8. Severe cardiomyopathy and chronic systolic heart failure with ejection fraction currently at 45-50% from a previous of 20% followed by Dr. Branch. 9. Chronic bipolar disorder. 10. Seizure disorder. 10. Generalized anxiety and panic attack. 11. Chronic diabetic neuropathy. 12. Chronic anemia due to chronic kidney disease. Discharge plan: Subacute rehab today. Social work is working on public guardian Impression and plan of care have been directed as dictated by the signing physician. Gretel Freitas nurse practitioner acting as scribe for signing physician. Patient Condition at Discharge: Stable Plan - Discharge Summary New Discharge Prescriptions: Morphine Sulfate Ir [MSIR] 15 mg PO Q4HR #180 tablet Ondansetron [Zofran] 4 mg PO Q8HR PRN #30 tab PRN Reason: Nausea Discharge Medication List Albuterol Inhaler [Ventolin Hfa Inhaler] 2 puff INHALATION RT-Q6H PRN 05/01/16 [ History] Glucagon Emergency Kit 1 mg IM ONCE PRN 05/01/16 [History] INSULIN LISPRO (HumaLOG) [humaLOG] See Protocol SQ AC-TID 05/01/16 [History] hydrALAZINE HCL 50 mg PO TID 05/01/16 [History] Omeprazole [PriLOSEC] 40 mg PO DAILY 05/16/16 [History] levETIRAcetam [Keppra] 500 mg PO Q12HR 05/25/16 [History] Aspirin 81 mg PO DAILY chew 05/27/16 [Rx] Darbepoetin Brodie [Aranesp] 40 mcg SQ Q7D syringe 05/27/16 [Rx] Folic Acid-Vit B Complex-Vit C [Nephrocaps] 1 each PO DAILY@1200 cap 05/27/16 [ Rx] Furosemide [Lasix] 40 mg PO DAILY #0 05/27/16 [Rx] Insulin Degludec [Tresiba Flextouch U-100] 8 unit SQ DAILY #0 05/27/16 [Rx] Melatonin 6 mg PO HS tablet 05/27/16 [Rx] Morphine Sulfate Ir [MSIR] 15 mg PO Q4HR #180 tablet 05/27/16 [Rx] Ondansetron [Zofran] 4 mg PO Q8HR PRN #30 tab 05/27/16 [Rx] Follow up Appointment(s)/Referral(s): Tobias Conway MD [Primary Care Provider] - 1 Week (After discharge from ecf) Lizz Payne MD [STAFF PHYSICIAN] - 1 Week Discharge Disposition: TRANSFER TO SNF/ECF
--- NOTE | 2016-05-27 15:51 | PN ---
Patient is seen for follow-up for end-stage renal disease. He was admitted to the hospital with weakness multiple falls and volume overload. He has been dialyzed. He is normally maintained on a Monday, , Monday schedule and he will be going to [place] as he is not able to take care of himself at home. On examination, blood pressure is 140/78, heart rate 85 per minute. He is afebrile. Examination of the heart S1 and S2. Examination of the lungs: Bilateral breath sounds are heard. ABDOMEN: Soft, nontender. Examination of lower extremities shows much improved edema. HAND TWISTER exam is grossly intact. Labs show potassium of 5.8, sodium 133, hemoglobin 9.1 g/dL. ASSESSMENT: 1. End-stage renal disease on hemodialysis on a Monday, , Monday schedule. 2. Generalized debility. Patient is scheduled for discharge today to [facility]. 3. Type 1 diabetes. 4. Diabetic gastroparesis with gastric pacemaker. 5. Cardiomyopathy with ejection fraction of about 45%. PLAN: The patient will be dialyzed tomorrow as outpatient. Addendum: Patient stated that he had his blood pressure taken on his access last night. He is complaining of pain in his forearm. There is no bruising noted. His graft is functional at this time. We will continue to follow this as outpatient. We have addressed this issue with the nursing staff and signs are posted on the wall regarding not using his left arm for blood draws or blood pressure checks.
[2016-05-27] MEDS ORDERED: [UNRECOGNIZED DRUG - OTHER] SQ SCH (21:00)
== END 2016-05-27 13:56 | DRG 947 ==
LOC: EC 11:34 → 6SEL 17:42 → 5MS5E 05-26 17:12
PROVIDERS: ADMIT Family Medicine; ATTEND Family Medicine
PROC: 5A1D60Z (ICD-10-PCS; principal; 2016-05-25)
DX: R60.1 Generalized edema (principal); I50.23 Acute on chronic systolic (congestive) heart failure; N18.6 End stage renal disease; I42.9 Cardiomyopathy, unspecified; E87.1 Hypo-osmolality and hyponatremia; E10.22 Type 1 diabetes mellitus with diabetic chronic kidney disease; E10.621 Type 1 diabetes mellitus with foot ulcer; D63.1 Anemia in chronic kidney disease; E10.65 Type 1 diabetes mellitus with hyperglycemia; K31.84 Gastroparesis; E10.42 Type 1 diabetes mellitus with diabetic polyneuropathy; E10.319 Type 1 diabetes mellitus with unspecified diabetic retinopathy without macular edema; E10.43 Type 1 diabetes mellitus with diabetic autonomic (poly)neuropathy; E78.5 Hyperlipidemia, unspecified; E87.5 Hyperkalemia; F17.210 Nicotine dependence, cigarettes, uncomplicated; F41.0 Panic disorder [episodic paroxysmal anxiety]; F41.1 Generalized anxiety disorder; G40.909 Epilepsy, unspecified, not intractable, without status epilepticus; G89.4 Chronic pain syndrome; I08.1 Rheumatic disorders of both mitral and tricuspid valves; I12.9 Hypertensive chronic kidney disease with stage 1 through stage 4 chronic kidney disease, or unspecified chronic kidney disease; I27.2 Other secondary pulmonary hypertension; J45.909 Unspecified asthma, uncomplicated; K21.9 Gastro-esophageal reflux disease without esophagitis; R29.6 Repeated falls; R26.9 Unspecified abnormalities of gait and mobility; L97.529 Non-pressure chronic ulcer of other part of left foot with unspecified severity; F32.9 Major depressive disorder, single episode, unspecified; R11.10 Vomiting, unspecified; E83.9 Disorder of mineral metabolism, unspecified; Z79.4 Long term (current) use of insulin; Z79.899 Other long term (current) drug therapy; Z88.1 Allergy status to other antibiotic agents; Z88.5 Allergy status to narcotic agent; Z88.2 Allergy status to sulfonamides; Z86.14 Personal history of Methicillin resistant Staphylococcus aureus infection; Z91.19 Patient's noncompliance with other medical treatment and regimen; Z99.2 Dependence on renal dialysis; Z82.49 Family history of ischemic heart disease and other diseases of the circulatory system
CPT/HCPCS: 36415; 71020; 80053; 82150; 82550; 82553; 83036; 83690; 83735; 83880; 84484; 84550; 85025; 85027; 85610; 85730; 90935; 93005; 93306; 96374; 96375; 99284

== ENCOUNTER 2016-08-27 13:52 | Inpatient (IN) | payer MEDICARE, OTHER ==
[2016-08-27 13:59] LABS: Glucose,Whole Blood 84 mg/dL (75-99)
[2016-08-27 15:36] LABS: Anisocytosis Slight; Basophils % (A) 1 %; CH 31.5; Eosinophils # (A) 0.1 k/uL (0-0.7); Eosinophils % (A) 1 %; HDW 2.73; Luc # (Auto) 0.13; Luc % (Auto) 1; Lymphocytes # (A) 1.1 k/uL (1.0-4.8); Lymphocytes % (A) 12 %; MCHC 33.3 g/dL (31.0-37.0); MCV 96.1 fL (80.0-100.0); Macrocytosis Slight; Mean Platelet Volume 7.9; Monocytes # (A) 0.4 k/uL (0-1.0); Monocytes % (A) 5 %; Neutrophils # (A) 7.2 k/uL (1.3-7.7); Neutrophils % (A) 80 %; RBC 1.68 m/uL (4.30-5.90); RDW 19.2 % (11.5-15.5); WBC (Perox) 8.94
[2016-08-27 15:40] LABS: HCT 16.2 % (39.0-53.0); HGB 5.4 gm/dL (13.0-17.5)
[2016-08-27] MEDS ORDERED: SODIUM CHLORIDE 0.9% 500 ML IV STA (15:45)
[2016-08-27 15:51] LABS: Calcium 7.8 mg/dL (8.4-10.2); Potassium 4.6 mmol/L (3.5-5.1); Total Bilirubin 0.5 mg/dL (0.2-1.3)
[2016-08-27 15:54] LABS: INR 3.3 (<1.1); Prothrombin Time 31.6 sec (9.0-12.0)
--- NOTE | 2016-08-27 16:10 | XR ---
EXAMINATION TYPE: XR chest 2V DATE OF EXAM: 08/27/2016 4:05 PM COMPARISON: 05/23/2016 HISTORY: Weakness vomiting TECHNIQUE: Frontal and lateral views of the chest are obtained. FINDINGS: Heart and mediastinum are normal. Lungs are clear. Diaphragm is normal. Bony thorax is int act. IMPRESSION: Normal chest. There is clearing of pleural effusions compared to old exam.
[2016-08-27] MEDS: DEXTROSE 50%-WATER 50 ML SYRINGE IVP STA (16:57)
[2016-08-27] MEDS ORDERED: PANTOPRAZOLE 40 MG/10 ML VIAL IVP ONE (17:03)
[2016-08-27 17:05] LABS: Glucose,Whole Blood 36 mg/dL (75-99)
--- NOTE | 2016-08-27 17:18 | ED ---
General Adult HPI - General Chief complaint: Psychiatric Symptoms Stated complaint: MENTAL HEALTH Source: patient Mode of arrival: EMS Limitations: physical limitation - History of Present Illness Initial comments: 35-year-old male with past medical history of asthma, DM, HD, GERD, HTN, end-stage renal failure on dialysis (AV fistula left arm), seizure disorder , diabetic neuropathy, bilateral near retinal detachment, gastroparesis, SMA syndrome, gastric ulcer, gastric stimulator presenting for evaluation of hematemesis. [facility] stated he was refusing to go to dialysis and that the dialysis center stated he wouldn't be able to be seen for dialysis until he had a psych eval. Pt states he had a right hip surgery a couple weeks ago and it started hurting this week. Due to his pain and not feeling well he missed his last two HD appointments (monday and ). He last went to dialysis on monday. He states his hematemesis has been ongoing for the last few weeks but hasn't been evaluated for it. He states he initially had vomiting and as this progressed the hematemesis started. He states he always has abdominal pain and has a gastric stimulator. He denies associated chest pain, shortness of breath, fevers, chills, diarrhea, constipation. Likely unrelated is recent bursting of large blister to left butt cheek. He was evaluated for this today and no further treatment indicated. - Related Data Home Medications Medication Instructions Recorded Confirmed hydrALAZINE HCL 50 mg PO TID@0600,1400,199905/01/16 08/27/16 levETIRAcetam [Keppra] 500 mg PO BID@080005/25/16 08/27/16 Darbepoetin Brodie [Aranesp] 60 mcg SQ 08/27/16 08/27/16 Diazepam [Valium] 2 mg PO Q8H PRN 08/27/16 08/27/16 Dronabinol 5 mg PO AC-TID 08/27/16 08/27/16 Erythromycin [Emile-Tab] 250 mg PO TID@0600,1400,2200 08/27/16 08/27/16 Folic Acid-Vit B Complex-Vit C 1 cap PO DAILY 08/27/16 08/27/16 [Nephrocaps] Furosemide [Lasix] 80 mg PO BID@0600,1400 08/27/16 08/27/16 Insulin Aspart [NovoLOG] See Protocol SQ ACHS 08/27/16 08/27/16 Lactulose 10 gm PO DAILY PRN 08/27/16 08/27/16 Lisinopril [Zestril] 20 mg PO BID@0800,199908/27/16 08/27/16 MORPHINE ORAL SOLN 20mg/mL 10 mg PO Q6H PRN 08/27/16 08/27/16 [Roxanol Oral Soln Conc 20MG/ML] Melatonin 3 mg PO HS PRN 08/27/16 08/27/16 Morphine Sulfate [Morphine Sulfate 30 mg PO BID@0800,199908/27/16 08/27/16 ER] Ondansetron [Zofran ODT] 8 mg PO Q8HR PRN 08/27/16 08/27/16 Pantoprazole Sodium [Protonix] 40 mg PO DAILY 08/27/16 08/27/16 Scopolamine 1.5MG/72Hr Patch 1 patch TRANSDERM Q72H 08/27/16 08/27/16 [Transderm-Scop 1.5MG/72Hr Patch] Sertraline [Zoloft] 50 mg PO DAILY 08/27/16 08/27/16 Previous Rx's Medication Instructions Recorded Insulin Degludec [Tresiba 8 unit SQ DAILY #0 05/27/16 Flextouch U-100] Allergies Allergy/AdvReac Type Severity Reaction Status Date / Time cephalexin monohydrate Allergy Unknown Verified 08/27/16 14:01 [From Keflex] ciprofloxacin [From Cipro] Allergy Unknown Verified 08/27/16 14:01 ciprofloxacin HCl Allergy Unknown Verified 08/27/16 14:01 [From Cipro] Sulfa (Sulfonamide Allergy Unknown Verified 08/27/16 14:01 Antibiotics) hydrocodone bitartrate AdvReac Nausea & Verified 08/27/16 14:01 [From Vicodin] Vomiting Review of Systems ROS Statement: Those systems with pertinent positive or pertinent negative responses have been documented in the HPI. ROS Other: All systems not noted in ROS Statement are negative. Constitutional: Reports: weakness. Denies: fever, chills Eyes: Denies: eye pain, eye discharge, vision change ENT: Denies: ear pain, throat pain, hearing loss Respiratory: Denies: cough, dyspnea, wheezes, hemoptysis, stridor Cardiovascular: Denies: chest pain, palpitations, dyspnea on exertion, orthopnea , edema Endocrine: Reports: fatigue. Denies: polydipsia, polyuria Gastrointestinal: Reports: abdominal pain, nausea, vomiting, hematemesis. Denies: diarrhea, constipation, melena, hematochezia Genitourinary: Denies: urgency, dysuria, frequency, hematuria, discharge Musculoskeletal: Denies: back pain, arthralgia, myalgia Skin: Reports: change in color. Denies: rash, lesions Neurological: Denies: headache, weakness, numbness, paresthesias Psychiatric: Denies: anxiety, depression Hematological/Lymphatic: Denies: easy bleeding, easy bruising Past Medical History Past Medical History: Asthma, Diabetes Mellitus, Dialysis, Eye Disorder, GERD/ Reflux, Hypertension, Neurologic Disorder, Renal Disease, Seizure Disorder, Skin Disorder, Vascular Disorder Additional Past Medical History / Comment(s): IDDM type I-diagnosed at age 7yrs , diabetic ulcer to R foot, end-stage renal disease on hemodialysis diabetic neuropathy, diabetic retinopathy, bilateral near retinal detachment with hemorrhage-had surgery, diabetic gastroparesis, superior mesenteric artery syndrome, gastric ulcer, chronic pain, past fractures R hand and R knee, R knee gives out at times and has caused falls.STATED HAS A PNE VACINE AT [facility] FEW YEARS AGO UNSURE OF DATE. History of Any Multi-Drug Resistant Organisms: None Reported Past Surgical History: Appendectomy, Orthopedic Surgery Additional Past Surgical History / Comment(s): past debridements L great toe-tx in wound center, 09/2014 and 10/2014 bilateral eye laser surgery for near retinal detachment with hemorrhage, 08/09/13 Gastric neurostimulator, right hand ORIF, dialysis fistula, sacral cystectomy, abscess removed from abdomin, teeth extractions, R knee with patellar tendon repair and I&D, hip surgery 3 weeks ago Past Anesthesia/Blood Transfusion Reactions: No Reported Reaction Additional Past Anesthesia/Blood Transfusion Reaction / Comment(s): Pt has never recieved blood Past Psychological History: Anxiety, Bipolar, Depression Additional Psychological History / Comment(s): Pt resides with his mother and father. His mother is his machine stacker when he needs assistance. Pt does not drive - mother takes to [employer]. He performs his own ADLs. He has a cane but does'nt always use it.. Smoking Status: Current every day smoker Past Alcohol Use History: None Reported Additional Past Alcohol Use History / Comment(s): Pt started smoking in 1994 and is a 1 ppd smoker. He does not drink alcohol. Past Drug Use History: None Reported - Past Family History Brother(s) Additional Family Medical History / Comment(s): Patient has 2 brothers and 2 half brothers with no major medical problems. Sister(s) Additional Family Medical History / Comment(s): A she has one sister and one half-sister with no major medical problems. Father Family Medical History: Coronary Artery Disease (CAD), Myocardial Infarction (SD ) Additional Family Medical History / Comment(s): Father of a SD at age 56yrs old. Mother Family Medical History: Thyroid Disorder Additional Family Medical History / Comment(s): Mother is in her early 60s with history of hypothyroidism. General Exam Limitations: physical limitation General appearance: alert, cachectic Head exam: Present: atraumatic, normocephalic, normal inspection Eye exam: Present: normal appearance, PERRL, EOMI. Absent: scleral icterus, conjunctival injection, periorbital swelling ENT exam: Present: normal exam, mucous membranes moist Neck exam: Present: normal inspection. Absent: tenderness, meningismus, lymphadenopathy Respiratory exam: Present: normal lung sounds bilaterally. Absent: respiratory distress, wheezes, rales, rhonchi, stridor Cardiovascular Exam: Present: normal rhythm, bradycardia, normal heart sounds. Absent: systolic murmur, diastolic murmur, rubs, gallop, clicks GI/Abdominal exam: Present: soft, normal bowel sounds, other (gastric stimulator palpated to mid-abdomen). Absent: distended, tenderness, guarding, rebound, rigid Extremities exam: Present: full ROM, normal capillary refill, pedal edema, other (gross 3+ edema throughout all extremities). Absent: tenderness, joint swelling, calf tenderness Back exam: Present: full ROM, other (stage 1 pressure sore to left butt cheek). Absent: tenderness, paraspinal tenderness Neurological exam: Present: alert, oriented X3, CN II-XII intact Psychiatric exam: Present: normal affect, normal mood Skin exam: Present: warm, dry, intact, normal color, pallor, other (blister to left buttock as described previously). Absent: rash, mottled Course Vital Signs 08/27/16 08/27/16 13:55 16:22 Temperature 97.0 F L Pulse Rate 64 53 L Respiratory 18 16 Rate Blood Pressure 87/52 87/53 O2 Sat by Pulse 100 Oximetry EKG Findings - EKG Comments: EKG Findings:: Sinus bradycardia with a ventricular rate of 56, SEDA 126, QRS 94 , QT/QTc 496/478. Patient has a gastric stimulator which is causing artifact. Medical Decision Making - Medical Decision Making 35 year male presenting for evaluation of hematemesis. He states this is been going on for the last few weeks although has recently been worsening. He denies any melena or hematochezia. Patient is a dialysis patient and last went a week ago, having missed his appointments on Monday and . On physical examination the patient is noted to be markedly pale and although he is alert and oriented 3 he does appear weak. Lungs are clear to auscultation bilaterally, the patient is mildly bradycardic on cardiac exam, and he does have abdominal tenderness although the abdomen is soft without peritoneal signs of guarding, rigidity, or rebound. There is a gastric stimulator noted to the mid abdomen which causes artifact on the EKG. He is grossly edematous with 3+ edema throughout all extremities. There is also a moderate sized blister to the left buttocks that has burst prior to arrival to the ED. He states he was reevaluated for this and that there is no other intervention planned. Given his extensive past medical history and presentation in pallor and mild hypotension will start IV fluids, obtain labs, EKG, chest x- ray, and occult stool. Labs significant for a marketed drop in his hemoglobin with her current level of 5.4. Patient is also hyponatremic at 129 and has acute on chronic renal failure with BUN 159 and creatinine 5.54. Troponin is elevated to 0.710 however given that this is likely demand ischemia or elevated due to not having had his hemodialysis and in the presence of a possible GI bleed will not initiate heparin. Chest x-ray shows normal chest with clearing of previous pleural effusion. We'll start Protonix, ordered 2 units of blood, and obtain central IV access as no peripheral line was able to be obtained. 5:08 PM Discussed pt with Dr. Winter Brown who accepted admission and requested consults with GI, nephrology, and cardiology. 5:20 PM Discussed pt with Dr. Calvillo (GI) and Dr. Figueroa (cardiology) who accepted the consults, agreed with current course of treatment, and had no further requests. 5:35 PM Discussed pt with Dr. Payne (nephro) who accepted consult and stated she was familiar with the pt and that he should have dialysis today. Will notify HD staff and have the pt sent to HD as soon as they are available/ready. 6:31 PM Discussed pt with Dr. Quintero ([facility] who accepted consult without further request. Consult order placed. - Lab Data Result diagrams: 08/27/16 15:20 08/27/16 15:20 Lab Results 08/27/16 08/27/16 08/27/16 Range/Units 13:56 15:20 15:20 WBC 9.0 (3.8-10.6) k/uL RBC 1.68 L (4.30-5.90) m/uL Hgb 5.4 L* (13.0-17.5) gm/dL Hct 16.2 L* (39.0-53.0) % MCV 96.1 (80.0-100.0) fL MCH 32.0 (25.0-35.0) pg MCHC 33.3 (31.0-37.0) g/dL RDW 19.2 H (11.5-15.5) % Plt Count 179 (150-450) k/uL Neutrophils % 80 % Lymphocytes % 12 % Monocytes % 5 % Eosinophils % 1 % Basophils % 1 % Neutrophils # 7.2 (1.3-7.7) k/uL Lymphocytes # 1.1 (1.0-4.8) k/uL Monocytes # 0.4 (0-1.0) k/uL Eosinophils # 0.1 (0-0.7) k/uL Basophils # 0.0 (0-0.2) k/uL Anisocytosis Slight Macrocytosis Slight PT (9.0-12.0) sec INR (<1.1) Sodium 129 L (137-145) mmol/L Potassium 4.6 (3.5-5.1) mmol/L Chloride 92 L (98-107) mmol/L Carbon Dioxide 24 (22-30) mmol/L Anion Gap 13 mmol/L BUN 159 H* (9-20) mg/dL Creatinine 5.54 H* (0.66-1.25) mg/dL Est GFR (MDRD) Af Amer 14 (>60 ml/min/1.73 sqM) Est GFR (MDRD) Non-Af 12 (>60 ml/min/1.73 sqM) Glucose 59 L (74-99) mg/dL POC Glucose (mg/dL) 84 (75-99) mg/dL POC Glu [employer] L[employer] Truck Operator ID Tess Bell Plasma Lactic Acid Malik (0.7-2.0) mmol/L Calcium 7.8 L (8.4-10.2) mg/dL Total Bilirubin 0.5 (0.2-1.3) mg/dL AST 49 (17-59) U/L ALT 41 (21-72) U/L Alkaline Phosphatase 76 (38-126) U/L Troponin I (0.000-0.034) ng/mL NT-Pro-B Natriuret Pep pg/mL Total Protein 5.0 L (6.3-8.2) g/dL Albumin 2.3 L (3.5-5.0) g/dL 08/27/16 08/27/16 08/27/16 Range/Units 15:20 15:20 15:30 WBC (3.8-10.6) k/uL RBC (4.30-5.90) m/uL Hgb (13.0-17.5) gm/dL Hct (39.0-53.0) % MCV (80.0-100.0) fL MCH (25.0-35.0) pg MCHC (31.0-37.0) g/dL RDW (11.5-15.5) % Plt Count (150-450) k/uL Neutrophils % % Lymphocytes % % Monocytes % % Eosinophils % % Basophils % % Neutrophils # (1.3-7.7) k/uL Lymphocytes # (1.0-4.8) k/uL Monocytes # (0-1.0) k/uL Eosinophils # (0-0.7) k/uL Basophils # (0-0.2) k/uL Anisocytosis Macrocytosis PT (9.0-12.0) sec INR (<1.1) Sodium (137-145) mmol/L Potassium (3.5-5.1) mmol/L Chloride (98-107) mmol/L Carbon Dioxide (22-30) mmol/L Anion Gap mmol/L BUN (9-20) mg/dL Creatinine (0.66-1.25) mg/dL Est GFR (MDRD) Af Amer (>60 ml/min/1.73 sqM) Est GFR (MDRD) Non-Af (>60 ml/min/1.73 sqM) Glucose (74-99) mg/dL POC Glucose (mg/dL) (75-99) mg/dL POC Glu [employer] L[employer] Truck Operator ID Plasma Lactic Acid Malik 0.8 (0.7-2.0) mmol/L Calcium (8.4-10.2) mg/dL Total Bilirubin (0.2-1.3) mg/dL AST (17-59) U/L ALT (21-72) U/L Alkaline Phosphatase (38-126) U/L Troponin I 0.710 H* (0.000-0.034) ng/mL NT-Pro-B Natriuret Pep 69472 pg/mL Total Protein (6.3-8.2) g/dL Albumin (3.5-5.0) g/dL 08/27/16 08/27/16 Range/Units 15:30 16:54 WBC (3.8-10.6) k/uL RBC (4.30-5.90) m/uL Hgb (13.0-17.5) gm/dL Hct (39.0-53.0) % MCV (80.0-100.0) fL MCH (25.0-35.0) pg MCHC (31.0-37.0) g/dL RDW (11.5-15.5) % Plt Count (150-450) k/uL Neutrophils % % Lymphocytes % % Monocytes % % Eosinophils % % Basophils % % Neutrophils # (1.3-7.7) k/uL Lymphocytes # (1.0-4.8) k/uL Monocytes # (0-1.0) k/uL Eosinophils # (0-0.7) k/uL Basophils # (0-0.2) k/uL Anisocytosis Macrocytosis PT 31.6 H (9.0-12.0) sec INR 3.3 (<1.1) Sodium (137-145) mmol/L Potassium (3.5-5.1) mmol/L Chloride (98-107) mmol/L Carbon Dioxide (22-30) mmol/L Anion Gap mmol/L BUN (9-20) mg/dL Creatinine (0.66-1.25) mg/dL Est GFR (MDRD) Af Amer (>60 ml/min/1.73 sqM) Est GFR (MDRD) Non-Af (>60 ml/min/1.73 sqM) Glucose (74-99) mg/dL POC Glucose (mg/dL) 36 L (75-99) mg/dL POC Glu [employer] L[employer] Truck Operator ID Manisha Allison Plasma Lactic Acid Malik (0.7-2.0) mmol/L Calcium (8.4-10.2) mg/dL Total Bilirubin (0.2-1.3) mg/dL AST (17-59) U/L ALT (21-72) U/L Alkaline Phosphatase (38-126) U/L Troponin I (0.000-0.034) ng/mL NT-Pro-B Natriuret Pep pg/mL Total Protein (6.3-8.2) g/dL Albumin (3.5-5.0) g/dL Disposition Clinical Impression: Acute blood loss anemia, GI bleed, Acute on chronic renal failure, Elevated troponin, Hypoglycemia, Hyponatremia Disposition: ADMITTED IP TO THIS [facility] Time of Disposition: 17:08 Decision to Admit Reason: Admit from EC Decision Date: 08/27/16 Decision Time: 18:32
[2016-08-27 17:30] LABS: Glucose,Whole Blood 125 mg/dL (75-99)
[2016-08-27] MEDS ORDERED: fentaNYL (PF) 50 MCG/ML 2 ML AMP IV ONE (17:31)
[2016-08-27] MEDS ORDERED: NALOXONE 0.4 MG/ML 1 ML VIAL IV PRN (17:42)
[2016-08-27] MEDS ORDERED: LACTULOSE 20 GM/30 ML CUP PO PRN (17:51)
[2016-08-27] MEDS ORDERED: MELATONIN 3 MG TABLET PO PRN (17:51)
[2016-08-27] MEDS ORDERED: ONDANSETRON ODT 8 MG TAB.RAPDIS PO PRN (17:51)
[2016-08-27] MEDS ORDERED: DIAZEPAM 2 MG TAB PO PRN (17:51)
--- NOTE | 2016-08-27 18:06 | XR ---
EXAMINATION TYPE: XR chest 1V confirm line [facility] DATE OF EXAM: 08/27/2016 5:50 PM COMPARISON: Today HISTORY: Check line placement TECHNIQUE: Single frontal view of the chest is obtained. FINDINGS: There is a right jugular catheter with the tip in the superior vena cava. There is no pneu mothorax. Lungs are clear. IMPRESSION: Catheter tip appears in good position.
[2016-08-27 19:12] LABS: Glucose,Whole Blood 63 mg/dL (75-99)
[2016-08-27 19:37] LABS: Glucose,Whole Blood 69 mg/dL (75-99)
[2016-08-27] MEDS ORDERED: DEXTROSE 50%-WATER 50 ML SYRINGE IVP STA (19:41)
[2016-08-27 20:01] LABS: Glucose,Whole Blood 110 mg/dL (75-99)
[2016-08-27] MEDS: DOPamine DRIP 800 MG in DEXTROSE/WATER 1 500ML.BAG IV SCH (20:45)
[2016-08-27] MEDS ORDERED: DOPamine DRIP 500 ML IV ONE (20:53)
[2016-08-27] MEDS ORDERED: SCOPOLAMINE 1.5MG/72HR PATCH TRANSDERM ONE (23:00)
[2016-08-27] MEDS ORDERED: levETIRAcetam 500 MG TAB ONE (23:00)
[2016-08-27] MEDS ORDERED: ONDANSETRON ODT 8 MG TAB.RAPDIS PO ONE (23:00)
[2016-08-27] MEDS ORDERED: ERYTHROMYCIN 250 MG TAB ONE (23:00)
[2016-08-27 23:05] LABS: Glucose,Whole Blood 92 mg/dL (75-99)
[2016-08-27 23:06] LABS: Glucose,Whole Blood 70 mg/dL (75-99)
[2016-08-28] MEDS: SCOPOLAMINE 1.5MG/72HR PATCH TRANSDERM SCH (00:02)
[2016-08-28 00:09] LABS: Hepatitis B Core IgM Index 0.01; Hepatitis B Surface Ag Index 0.05; Hepatitis C Virus IgG Index 0.05
[2016-08-28 00:10] LABS: Hepatitis C Virus IgG Ab Negative (Negative)
[2016-08-28] MEDS ORDERED: DEXTROSE 50%-WATER 50 ML SYRINGE IVP STA (02:50)
[2016-08-28] MEDS: LISINOPRIL 20 MG TAB PO SCH ×3 (02:55→21:20)
[2016-08-28] MEDS: ERYTHROMYCIN 250 MG TAB PO SCH ×4 (02:56→21:25)
[2016-08-28] MEDS: INSULIN LISPRO (humaLOG) 300 UNIT/3 ML VIAL SQ SCH ×3 (02:56→12:20)
[2016-08-28] MEDS: levETIRAcetam 500 MG TAB PO SCH ×3 (02:56→21:25)
[2016-08-28 02:58] LABS: Glucose,Whole Blood 33 mg/dL (75-99)
[2016-08-28 03:07] LABS: Glucose,Whole Blood 117 mg/dL (75-99)
[2016-08-28] MEDS: MORPHINE SULFATE 2 MG/ML SYRINGE IV PRN ×3 (03:29→21:25)
[2016-08-28] MEDS: DEXTROSE 5% IN WATER 1,000 ML IV SCH (03:35)
[2016-08-28 04:14] LABS: Glucose,Whole Blood 82 mg/dL (75-99)
[2016-08-28] MEDS ORDERED: FUROSEMIDE 80 MG TAB PO SCH (06:00)
[2016-08-28 06:50] LABS: Glucose,Whole Blood 74 mg/dL (75-99)
[2016-08-28 07:00] LABS: Anisocytosis Slight; Basophils % (A) 0 %; CHCM 34.8; Eosinophils # (A) 0.1 k/uL (0-0.7); Eosinophils % (A) 1 %; HCT 24.2 % (39.0-53.0); HDW 3.44; Luc # (Auto) 0.06; Luc % (Auto) 1; Lymphocytes # (A) 0.8 k/uL (1.0-4.8); Lymphocytes % (A) 11 %; MCH 31.6 pg (25.0-35.0); Monocytes # (A) 0.4 k/uL (0-1.0); Monocytes % (A) 5 %; Neutrophils # (A) 6.1 k/uL (1.3-7.7); Neutrophils % (A) 81 %; Poikilocytosis Slight; RDW 17.5 % (11.5-15.5); WBC 7.5 k/uL (3.8-10.6); WBC (Perox) 7.39
[2016-08-28 07:04] LABS: HGB 8.2 gm/dL (13.0-17.5)
[2016-08-28] MEDS ORDERED: PANTOPRAZOLE 40 MG TABLET PO SCH (07:30)
[2016-08-28 07:58] LABS: Calcium 7.3 mg/dL (8.4-10.2); Magnesium 2.6 mg/dL (1.6-2.3); Phosphorous 4.8 mg/dL (2.5-4.5); Potassium 3.9 mmol/L (3.5-5.1); Total Bilirubin 0.6 mg/dL (0.2-1.3); Total Protein 4.7 g/dL (6.3-8.2)
[2016-08-28] MEDS ORDERED: INSULIN DETEMIR 100 UNIT/ML 10 ML VIAL SQ SCH (09:00)
[2016-08-28] MEDS: SERTRALINE 50 MG TAB PO SCH (09:15)
[2016-08-28 09:22] LABS: Glucose,Whole Blood 61 mg/dL (75-99)
[2016-08-28] MEDS: DRONABINOL 2.5 MG CAP PO SCH ×3 (09:33→16:47)
[2016-08-28 09:37] LABS: Glucose,Whole Blood 66 mg/dL (75-99)
[2016-08-28] MEDS: PANTOPRAZOLE 40 MG/10 ML VIAL IVP SCH ×2 (09:49→22:19)
[2016-08-28 09:53] LABS: Glucose,Whole Blood 78 mg/dL (75-99)
[2016-08-28 12:17] LABS: Glucose,Whole Blood 63 mg/dL (75-99)
[2016-08-28] MEDS ORDERED: DEXTROSE 10% IN WATER 500 ML in EMPTY BAG 1 BAG IV SCH (12:30)
[2016-08-28] MEDS ORDERED: SODIUM CHLORIDE 0.9% 500 ML IV ONE (12:41)
[2016-08-28 12:59] LABS: Glucose,Whole Blood 61 mg/dL (75-99)
[2016-08-28 13:19] LABS: Glucose,Whole Blood 67 mg/dL (75-99)
--- NOTE | 2016-08-28 13:39 | P.HPIM ---
History of Present Illness H&P Date: 08/28/16 Chief Complaint: Acute blood loss anemia with GI bleed This is a 35-year-old male. He is a patient of Dr. Tobias Conway with past mental history of end-stage renal disease on hemodialysis Monday and Monday, diabetes mellitus type 1 uncontrolled, diabetic gastroparesis with nerve stimulator in place, chronic anemia, diabetic polyneuropathy, generalized anxiety disorder, bipolar disorder, seizure disorder, hypertension, hyperlipidemia, chronic pain syndrome, gastroesophageal reflux disease, history of MRSA infection, retinopathy, advanced cardiomyopathy with ejection fraction 20% followed by cardiology. Patient was seen in emergency room secondary to the fact that the patient has been refusing to go to hemodialysis, and he had missed hemodialysis on Monday and , and the patient was complaining of episode of hematemesis without hematochezia for the past few weeks, the patient was found to have a hemoglobin of 5.4, slightly elevated troponin of 0.7, and the patient was quite edematous, and the patient was admitted to the intensive care unit under the care of Dr. Payne, I received a call from the nursing staff in the ICU stating that patient needed to be admitted under your service since the patient was seen by us back in May 2016, subsequently I came and saw the patient along with the ICU nurse Augusta. Patient already was seen and evaluated by Dr. Quintero from intensive care as well as nephrology Dr. Payne, and he scheduled to go for EGD with Dr. Bai hopefully forcing the morning for EGD. Patient did receive 3 units of packed red blood cells. Review of Systems Constitutional: Reports anorexia, Reports chronic pain, Reports fatigue, Reports malaise, Reports weakness, Reports weight loss Eyes: bilateral blurred vision Ears: deny: decreased hearing Ears, nose, mouth and throat: Denies dysphagia, Denies neck lump, Denies sore throat, Denies vertigo Cardiovascular: Reports decreased exercise tolerance, Reports dyspnea on exertion, Reports high blood pressure, Reports shortness of breath, Denies chest pain, Denies rapid heart beat, Denies syncope Respiratory: Reports dyspnea, Denies congestion, Denies cough, Denies cough with sputum, Denies home oxygen, Denies sleep apnea, Denies snoring, Denies wheezing Gastrointestinal: Reports abdominal pain, Reports hematemesis, Reports indigestion, Reports loss of appetite, Reports melena, Reports nausea, Reports vomiting, Denies bloating, Denies BRBPR, Denies coffee ground emesis, Denies dyspepsia, Denies excessive gas, Denies hematochezia Genitourinary: Denies dysuria, Denies polyuria Musculoskeletal: Denies myalgias Musculoskeletal: right: hip pain, hip stiffness, absent: ankle pain, ankle stiffness, ankle swelling, elbow pain, elbow stiffness, elbow swelling, foot pain, foot stiffness, foot swelling, hand pain, hand stiffness, hand swelling, knee pain, knee stiffness, knee swelling, shoulder pain, shoulder stiffness, shoulder swelling, wrist pain, wrist stiffness, wrist swelling Integumentary: Denies pruritus, Denies rash Neurological: Denies numbness, Denies weakness Psychiatric: Reports anxiety, Reports depression, Denies sleep disturbances, Denies suicidal ideation Endocrine: Denies fatigue, Denies weight change Past Medical History Past Medical History: Asthma, Diabetes Mellitus, Dialysis, Eye Disorder, GERD/ Reflux, Hypertension, Neurologic Disorder, Renal Disease, Seizure Disorder, Skin Disorder, Vascular Disorder Additional Past Medical History / Comment(s): IDDM type I-diagnosed at age 7yrs , diabetic ulcer to R foot, end-stage renal disease on hemodialysis diabetic neuropathy, diabetic retinopathy, bilateral near retinal detachment with hemorrhage-had surgery, diabetic gastroparesis, superior mesenteric artery syndrome, gastric ulcer, chronic pain, past fractures R hand and R knee, R knee gives out at times and has caused falls.STATED HAS A PNE VACINE AT [facility] FEW YEARS AGO UNSURE OF DATE. History of Any Multi-Drug Resistant Organisms: None Reported Past Surgical History: Appendectomy, Orthopedic Surgery Additional Past Surgical History / Comment(s): past debridements L great toe-tx in wound center, 09/2014 and 10/2014 bilateral eye laser surgery for near retinal detachment with hemorrhage, 08/09/13 Gastric neurostimulator, right hand ORIF, dialysis fistula, sacral cystectomy, abscess removed from abdomin, teeth extractions, R knee with patellar tendon repair and I&D, hip surgery 3 weeks ago Past Anesthesia/Blood Transfusion Reactions: No Reported Reaction Additional Past Anesthesia/Blood Transfusion Reaction / Comment(s): . Past Psychological History: Anxiety, Bipolar, Depression Additional Psychological History / Comment(s): Pt resides at rehab facility post hip sx. His mother is his healthcare translator before this. Pt does not drive- mother takes to appts. He performs his own ADLs. He has a cane and walker but does'nt always use it.. Smoking Status: Current every day smoker Past Alcohol Use History: None Reported Additional Past Alcohol Use History / Comment(s): Pt started smoking in 1994 and is a 1 ppd smoker. He does not drink alcohol. Past Drug Use History: None Reported - Past Family History Brother(s) Additional Family Medical History / Comment(s): Patient has 2 brothers and 2 half brothers with no major medical problems. Sister(s) Additional Family Medical History / Comment(s): A she has one sister and one half-sister with no major medical problems. Father Family Medical History: Coronary Artery Disease (CAD), Myocardial Infarction ([place] ) Additional Family Medical History / Comment(s): Father of a [place] at age 56yrs old. Mother Family Medical History: Thyroid Disorder Additional Family Medical History / Comment(s): Mother is in her early 60s with history of hypothyroidism. Medications and Allergies Home Medications Medication Instructions Recorded Confirmed Type hydrALAZINE HCL 50 mg PO TID@0600,1400,199905/01/16 08/27/16 History levETIRAcetam [Keppra] 500 mg PO BID@08,199905/25/16 08/27/16 History Darbepoetin Brodie [Aranesp] 60 mcg SQ TU 08/27/16 08/27/16 History Diazepam [Valium] 2 mg PO Q8H PRN 08/27/16 08/27/16 History Dronabinol 5 mg PO AC-TID 08/27/16 08/27/16 History Erythromycin [Emile-Tab] 250 mg PO TID@0600,1400,2200 08/27/16 08/27/16 History Folic Acid-Vit B Complex-Vit C 1 cap PO DAILY 08/27/16 08/27/16 History [Nephrocaps] Furosemide [Lasix] 80 mg PO BID@0600,1400 08/27/16 08/27/16 History Insulin Aspart [NovoLOG] See Protocol SQ ACHS 08/27/16 08/27/16 History Lactulose 10 gm PO DAILY PRN 08/27/16 08/27/16 History Lisinopril [Zestril] 20 mg PO BID@0800,199908/27/16 08/27/16 History MORPHINE ORAL SOLN 20mg/mL 10 mg PO Q6H PRN 08/27/16 08/27/16 History [Roxanol Oral Soln Conc 20MG/ML] Melatonin 3 mg PO HS PRN 08/27/16 08/27/16 History Morphine Sulfate [Morphine Sulfate 30 mg PO BID@0800,199908/27/16 08/27/16 History ER] Ondansetron [Zofran ODT] 8 mg PO Q8HR PRN 08/27/16 08/27/16 History Pantoprazole Sodium [Protonix] 40 mg PO DAILY 08/27/16 08/27/16 History Scopolamine 1.5MG/72Hr Patch 1 patch TRANSDERM Q72H 08/27/16 08/27/16 History [Transderm-Scop 1.5MG/72Hr Patch] Sertraline [Zoloft] 50 mg PO DAILY 08/27/16 08/27/16 History Allergies Allergy/AdvReac Type Severity Reaction Status Date / Time cephalexin monohydrate Allergy Unknown Verified 08/27/16 14:01 [From Keflex] ciprofloxacin [From Cipro] Allergy Unknown Verified 08/27/16 14:01 ciprofloxacin HCl Allergy Unknown Verified 08/27/16 14:01 [From Cipro] Sulfa (Sulfonamide Allergy Unknown Verified 08/27/16 14:01 Antibiotics) hydrocodone bitartrate AdvReac Nausea & Verified 08/27/16 14:01 [From Vicodin] Vomiting Physical Exam Vitals: Vital Signs Temp Pulse Pulse Resp BP BP Pulse Ox 08/28/16 13:00 58 L 12 90/52 93 L 08/28/16 12:00 97.7 F 61 15 95/50 99 08/28/16 11:00 59 L 14 90/48 100 08/28/16 10:00 76 13 112/57 99 08/28/16 09:00 63 12 94/53 98 08/28/16 08:00 98.8 F 62 14 91/50 100 08/28/16 07:00 58 L 10 L 97/56 100 08/28/16 06:50 58 L 14 97/56 100 08/28/16 06:40 56 L 15 98/57 99 08/28/16 06:30 59 L 13 98/57 100 08/28/16 06:20 56 L 15 104/59 100 08/28/16 06:10 59 L 17 104/59 100 08/28/16 06:00 55 L 16 104/57 100 08/28/16 05:50 58 L 15 104/57 100 08/28/16 05:40 62 13 92/54 98 08/28/16 05:30 54 L 15 96/54 100 08/28/16 05:20 53 L 15 95/51 08/28/16 05:10 52 L 13 94/51 100 08/28/16 05:00 53 L 13 101/55 100 08/28/16 04:50 53 L 16 110/61 100 08/28/16 04:40 57 L 12 97/51 100 08/28/16 04:30 53 L 13 102/52 100 08/28/16 04:20 54 L 10 L 111/58 100 08/28/16 04:10 97.9 F 54 L 15 112/54 100 08/28/16 04:00 55 L 10 L 111/56 100 08/28/16 03:50 55 L 18 99/54 100 08/28/16 03:40 54 L 12 104/55 100 08/28/16 03:30 58 L 10 L 111/59 100 08/28/16 03:20 57 L 111/58 100 08/28/16 03:10 56 L 16 106/53 100 08/28/16 03:00 58 L 18 102/51 100 08/28/16 02:50 63 14 102/52 100 08/28/16 02:40 60 12 101/50 100 08/28/16 02:30 63 18 98/50 100 08/28/16 02:20 61 11 L 98/48 99 08/28/16 02:10 61 19 106/54 99 08/28/16 02:00 64 14 105/50 100 08/28/16 01:50 61 13 91/46 99 08/28/16 01:40 59 L 10 L 100/46 99 08/28/16 01:30 63 14 97/47 100 08/28/16 01:20 58 L 16 95/50 100 08/28/16 01:10 61 16 102/55 100 08/28/16 01:00 61 12 95/51 100 08/28/16 00:50 58 L 13 116/58 100 08/28/16 00:40 62 14 97/52 99 08/28/16 00:30 61 16 97/54 100 08/28/16 00:20 63 13 96/51 100 08/28/16 00:10 65 11 L 102/56 100 08/28/16 00:03 66 12 102/56 100 08/28/16 00:00 97.0 F L 66 12 116/61 100 08/27/16 23:50 72 16 124/70 100 08/27/16 23:40 72 16 120/61 100 08/27/16 23:30 96.5 F L 72 13 102/59 100 08/27/16 23:20 71 12 77/42 100 08/27/16 23:10 71 13 106/66 100 08/27/16 23:00 75 13 112/63 100 08/27/16 22:50 80 19 90/54 100 08/27/16 22:40 78 17 97/56 100 08/27/16 22:30 86 18 89/55 100 08/27/16 22:20 88 15 83/55 100 08/27/16 22:10 82 16 84/51 100 08/27/16 22:00 96.0 F L 76 15 91/53 100 08/27/16 21:52 78 12 91/51 100 08/27/16 21:40 75 12 86/48 100 08/27/16 21:30 73 16 93/51 100 08/27/16 21:20 95.5 F L 70 16 87/48 100 08/27/16 21:10 52 L 16 69/39 100 08/27/16 21:00 50 L 15 68/39 100 08/27/16 20:50 50 L 12 70/39 100 08/27/16 20:40 50 L 22 72/41 100 08/27/16 20:30 94.5 F L 47 L 15 79/44 100 08/27/16 20:20 48 L 11 L 73/40 100 08/27/16 20:10 49 L 13 77/47 98 08/27/16 20:00 93.5 F L 50 L 12 77/47 93 L 08/27/16 19:50 48 L 13 77/44 100 08/27/16 19:40 49 L 13 80/48 100 08/27/16 19:30 49 L 12 80/48 100 08/27/16 18:42 96.8 F L 58 L 18 103/49 08/27/16 18:41 93.5 F L 50 L 16 70/55 100 08/27/16 18:32 96.8 F L 53 L 14 82/51 95 08/27/16 17:59 53 L 20 84/52 100 Intake and Output 08/27/16 08/28/16 08/28/16 22:59 06:59 14:59 Intake Total 80.536 669.176 3955.398 Balance 80.536 900.158 9424.398 Intake: IV 60 190 300 Dextrose 5% in Water 1, 90 250 000 ml @ 50 mls/hr IV . Q20H MARY Rx#:[id number] Normal Saline 0.9 60 100 50 Intake, IV Titration 20.536 10.268 143.398 Amount DOPamine DRIP 800 mg In 20.536 10.268 93.398 Dextrose/Water 1 500ml. bag @ 1 MCG/KG/MIN 2.04 mls/hr IV .Q24H MARY Rx#: [id number] Dextrose 10% in Water 500 50 ml In Empty Bag 1 bag @ 50 mls/hr IV .Q10H MARY Rx #:[id number] Oral 60 Blood Product 0 620 Rc As-1 Unit 0 310 [id number] Rc As-3 Unit 310 [id number] Other: Weight 57.4 kg - Constitutional General appearance: mild distress, thin - EENT Eyes: EOMI, PERRLA, no ptosis, no scleral icterus ENT: hearing grossly normal, NA/AT, no normal oropharynx Ears: bilateral: normal - Neck Neck: no lymphadenopathy, normal ROM, no rigidity, no stridor Carotids: bilateral: upstroke normal Thyroid: bilateral: normal size - Respiratory Respiratory: bilateral: diminished, negative: dullness, rales, rhonchi, wheezing , prolonged expiration, prolonged inspiration - Cardiovascular Rhythm: regular Heart sounds: normal: S1, S2 Abnormal Heart Sounds: systolic murmur, S3 Gallop - Gastrointestinal General gastrointestinal: normal bowel sounds, soft, no splenomegaly, tenderness (There is a gastric pacemaker.) - Integumentary Integumentary: ulcer (Side of the left big toe with this.) - Neurologic Neurologic: CNII-XII intact - Musculoskeletal Musculoskeletal: generalized weakness - Psychiatric Psychiatric: A&O x's 3, no appropriate affect, no intact judgment & insight Results CBC & Chem 7: 08/28/16 06:47 08/28/16 06:47 Labs: Abnormal Lab Results - Last 24 Hours (Table) 08/27/16 08/27/16 08/27/16 Range/Units 19:09 19:35 19:59 RBC (4.30-5.90) m/uL Hgb (13.0-17.5) gm/dL Hct (39.0-53.0) % RDW (11.5-15.5) % Plt Count (150-450) k/uL Lymphocytes # (1.0-4.8) k/uL Sodium (137-145) mmol/L Chloride (98-107) mmol/L BUN (9-20) mg/dL Creatinine (0.66-1.25) mg/dL POC Glucose (mg/dL) 63 L 69 L 110 H (75-99) mg/dL Calcium (8.4-10.2) mg/dL Phosphorus (2.5-4.5) mg/dL Magnesium (1.6-2.3) mg/dL Total Protein (6.3-8.2) g/dL Albumin (3.5-5.0) g/dL Lipase (23-300) U/L 08/27/16 08/28/16 08/28/16 Range/Units 22:58 02:48 03:06 RBC (4.30-5.90) m/uL Hgb (13.0-17.5) gm/dL Hct (39.0-53.0) % RDW (11.5-15.5) % Plt Count (150-450) k/uL Lymphocytes # (1.0-4.8) k/uL Sodium (137-145) mmol/L Chloride (98-107) mmol/L BUN (9-20) mg/dL Creatinine (0.66-1.25) mg/dL POC Glucose (mg/dL) 70 L 33 L 117 H (75-99) mg/dL Calcium (8.4-10.2) mg/dL Phosphorus (2.5-4.5) mg/dL Magnesium (1.6-2.3) mg/dL Total Protein (6.3-8.2) g/dL Albumin (3.5-5.0) g/dL Lipase (23-300) U/L 08/28/16 08/28/16 08/28/16 Range/Units 06:47 06:47 06:48 RBC 2.60 L (4.30-5.90) m/uL Hgb 8.2 L D (13.0-17.5) gm/dL Hct 24.2 L (39.0-53.0) % RDW 17.5 H (11.5-15.5) % Plt Count 137 L (150-450) k/uL Lymphocytes # 0.8 L (1.0-4.8) k/uL Sodium 132 L (137-145) mmol/L Chloride 97 L (98-107) mmol/L BUN 93 H* (9-20) mg/dL Creatinine 3.66 H (0.66-1.25) mg/dL POC Glucose (mg/dL) 74 L (75-99) mg/dL Calcium 7.3 L (8.4-10.2) mg/dL Phosphorus 4.8 H (2.5-4.5) mg/dL Magnesium 2.6 H (1.6-2.3) mg/dL Total Protein 4.7 L (6.3-8.2) g/dL Albumin 2.2 L (3.5-5.0) g/dL Lipase 12 L (23-300) U/L 08/28/16 08/28/16 08/28/16 Range/Units 09:16 09:35 12:15 RBC (4.30-5.90) m/uL Hgb (13.0-17.5) gm/dL Hct (39.0-53.0) % RDW (11.5-15.5) % Plt Count (150-450) k/uL Lymphocytes # (1.0-4.8) k/uL Sodium (137-145) mmol/L Chloride (98-107) mmol/L BUN (9-20) mg/dL Creatinine (0.66-1.25) mg/dL POC Glucose (mg/dL) 61 L 66 L 63 L (75-99) mg/dL Calcium (8.4-10.2) mg/dL Phosphorus (2.5-4.5) mg/dL Magnesium (1.6-2.3) mg/dL Total Protein (6.3-8.2) g/dL Albumin (3.5-5.0) g/dL Lipase (23-300) U/L 08/28/16 08/28/16 Range/Units 12:57 13:17 RBC (4.30-5.90) m/uL Hgb (13.0-17.5) gm/dL Hct (39.0-53.0) % RDW (11.5-15.5) % Plt Count (150-450) k/uL Lymphocytes # (1.0-4.8) k/uL Sodium (137-145) mmol/L Chloride (98-107) mmol/L BUN (9-20) mg/dL Creatinine (0.66-1.25) mg/dL POC Glucose (mg/dL) 61 L 67 L (75-99) mg/dL Calcium (8.4-10.2) mg/dL Phosphorus (2.5-4.5) mg/dL Magnesium (1.6-2.3) mg/dL Total Protein (6.3-8.2) g/dL Albumin (3.5-5.0) g/dL Lipase (23-300) U/L Thrombosis Risk Factor Assmnt - DVT/VTE Prophylaxis DVT/VTE Prophylaxis: Pharmacologic Prophylaxis ordered, Mechanical Prophylaxis ordered - Choose All That Apply Each Factor Represents 1 point: Heart failure (<1month) Thrombosis Risk Factor Assessment Total Risk Factor Score: 1 Thrombosis Risk Factor Assessment Level: Low Risk Assessment and Plan Plan: Assessment and plan: 1. Acute blood loss anemia status post 3 units of packed red blood cell transfusion. His hemoglobin is stable at 8.4. 2. Upper GI bleed. Patient will be admitted to the ICU, GI consultation for EGD tomorrow morning, moderate patient vital sensory closely, Dr. Quintero consult for intensive care management. Monitor CBC every 6 hours for the next 24 hours. Transfuse for hemoglobin less than 7. 3. Hypoglycemia . Patient D5W was changed to D10 W, for the next few hours and then monitor the patient blood glucose very closely when the patient is stable he will be switched back to D5W. 4. End-stage renal disease on hemodialysis Monday, , Monday. Consult with Dr. Payne. 5. Chronic pain syndrome. He was morphine 2 mg IV push every 4 hours as needed. 6. Hypertension and hypertensive cardiovascular disease. Currently hypotensive , hold cerebral for now continue patient on dopamine for now. 7. Diabetes mellitus type 1 uncontrolled presenting with hypoglycemia. Patient is on D10w at 50 mL per hour area continue With blood glucose. Insulins are on hold. 8. Severe cardiomyopathy and chronic systolic heart failure with ejection fraction 20% followed by Dr. Branch. Patient may require ICD device in the future. Continue Lasix 80 mg twice daily, hold off lisinopril because of the hypertension. 9. Chronic seizure disorder. Continue Keppra 500 mg twice daily. 10. Generalized anxiety and panic attack. Currently on Valium. 11. Chronic diabetic neuropathy. Stable. 12. Chronic anemia due to chronic kidney disease. Patient has been on Aranesp 60 g subcutaneously every Monday. 13. Gastrointestinal prophylaxis. Continue Protonix 40 mg IV push every 24 hours. 14. DVT prophylaxis. Bilateral knee-high REHANA hose. 15. Admit to inpatient, estimate length of stay 2 midnights.
[2016-08-28 13:46] LABS: Glucose,Whole Blood 77 mg/dL (75-99)
--- NOTE | 2016-08-28 14:42 | CONS ---
REASON FOR CONSULT: End-stage renal disease. HISTORY OF PRESENT ILLNESS: Patient is a 35-year-old male with a history of end-stage renal disease on hemodialysis on a Monday, , Monday schedule via left arm AV graft. He was admitted to the hospital, as he has been refusing to go to dialysis. The patient states he is in pain. He hurts and has been feeling sick since his hip surgery. He has not been able to eat. He feels nauseated. Patient was found to have hemoglobin of 5 g/dL. He has been transfused packed RBCs. His hemoglobin today is 8.2 g/dL. He has been evaluated by GI and is scheduled for an endoscopy tomorrow. Patient was dialyzed yesterday. His BUN was at 159 and creatinine at 5.5 mg/dL yesterday. Patient was also hypotensive, currently maintained on a small dose of dopamine. PAST MEDICAL HISTORY: End-stage renal disease, cardiomyopathy, EF of about 20%, recent fracture and hip arthroplasty at [facility], asthma, gastroesophageal reflux disease, CKD bone mineral disorder, type 1 diabetes, diabetic gastroparesis with gastric pacemaker. PAST SURGICAL HISTORY: Appendectomy, ORIF, recent hip surgery about 3 weeks ago, gastric pacemaker, PermCath placement, AV fistula for dialysis, eye surgery. SOCIAL HISTORY: Positive for smoking. No history of drug abuse or alcohol abuse. Currently patient resides at [facility]. He does have a history of bipolar disorder and depression. On examination, currently the patient is resting in bed. He is comfortable. He is not in any acute distress; awake, alert, oriented x3. Blood pressure is 90/52, heart rate 58 per minute. He is afebrile. HEART: S1 and S2. LUNGS: Bilateral breath sounds are heard. ABDOMEN: Soft, nontender. Lower extremities show no evidence of edema. PRODUCT DEVELOPMENT ECOLOGIST: Patient is moving all 4 extremities. Labs show sodium 132, potassium 3.9. Hemoglobin 8.2 g/dL. ASSESSMENT: 1. End-stage renal disease on hemodialysis on a Monday, , Monday schedule, status post hemodialysis yesterday. 2. Severe anemia secondary to gastrointestinal bleed and anemia of chronic disease, not receiving Procrit since he has not been going to dialysis regularly. Patient has been transfused packed red blood cells and he is scheduled for endoscopy tomorrow. 3. Decreased oral intake, possibly secondary to uremia versus esophagitis. Proton pump inhibitors have been increased. 4. Recent hip surgery at [facility], status post fall and fracture, still complaining of pain. 5. Severe cardiomyopathy, ejection fraction of about 20%. 6. Severe gastroparesis, status post gastric pacemaker. PLAN: Try to wean off dopamine IV fluid bolus x1. Hold off on Lasix. Continue with Aranesp. Monitor the hemoglobin and we will plan on dialysis on Monday.
[2016-08-28 16:23] LABS: Glucose,Whole Blood 107 mg/dL (75-99)
[2016-08-28 19:59] LABS: Glucose,Whole Blood 210 mg/dL (75-99)
--- NOTE | 2016-08-28 21:41 | CONS ---
DATE OF CONSULTATION: 08/28/2016 REASON FOR CONSULTATION: Severe symptomatic anemia. ( ). HISTORY OF PRESENT ILLNESS: The patient is an 35-year-old pleasant white male with long-standing history of diabetes mellitus, severe diabetic gastroparesis and end stage renal disease on hemodialysis, came into the emergency room yesterday with coffee-ground emesis on and off for the last 2 weeks' duration and hemoglobin of 5. He was admitted to the intensive care unit and hence we are consulted. The patient since being in the hospital had one episode of emesis last night, which was bilious in nature. He complains of abdominal pain. He reports no further nausea or vomiting. Patient in the past was diagnosed with severe gastroparesis and had multiple upper endoscopies in the past. He had gastric neurostimulator placed by Dr. Batres at [facility] about 2 years ago. His past medical history is significant for long-standing history of diabetes mellitus, end-stage renal disease, hemodialysis, diabetic neuropathy, diabetic gastroparesis, hypertension, anxiety, depression, seizure disorder, chronic pain. PAST SURGICAL HISTORY: Appendectomy, gastric neurostimulator placement two days ago. Recent left hip surgery which he fractured after the fall, dialysis catheter placement, AV fistula placement, teeth extraction, right knee surgery. Medications at home include: 1. Aranesp. 2. Valium. 3. Tylenol. 4. Folic acid. 5. Lasix. 6. NovoLog. 7. Zestril. 8. Lactulose. 9. Morphine sulfate. 10. Melatonin. 11. Zofran. 12. Protonix. 13. Scopolamine patch. 14. Zoloft. 15. Hydralazine. 16. Keppra. ALLERGIES: KEFLEX, CIPRO, SULFA, VICODIN. SOCIAL HISTORY: Chronic smoker. No alcohol use. FAMILY HISTORY: Unremarkable. REVIEW OF SYSTEMS: CARDIOPULMONARY: He denies any chest pain or shortness of breath. GENITOURINARY: No dysuria or hematuria. MUSCULOSKELETAL: Chronic back pain. NEUROLOGY: Unremarkable. PSYCHIATRIC: History of anxiety, depression. ENT/vision: Unremarkable. CONSTITUTIONAL: No recent weight loss. No fever, chills, night sweats. GI: As mentioned above. ENDOCRINE: Diabetes since age 7. On physical examination, he appears comfortable in no apparent distress. Vitals as are stable. Blood pressure is 98/57, pulse rate 56, afebrile. HEENT: Unremarkable. Conjunctivae pink. Sclerae anicteric. Oral cavity, no lesions. NECK: No JVD or lymph node enlargement. Chest was clear to auscultation. HEART: Regular rate and rhythm. ABDOMEN: Soft. Bowel sounds are positive. No organomegaly. EXTREMITIES: No pedal edema. SKIN: No rashes. NEURO: Alert and oriented x3. No focal deficits. Labs done at the time of admission to hospital: Hemoglobin was 5.4. WBC 9, platelets 179, INR 3.3, BUN was 159, creatinine 5.54, today BUN is 93, creatinine 3.6. After 2 units, hemoglobin is 8.2. Troponin 0.7. IMPRESSION: 1. Coffee-ground emesis and severe symptomatic anemia with hemoglobin of 5.5, requiring 2 units of blood transfusion. Last hemoglobin 8.1. No further episodes of bleeding since being in the hospital; however, patient has been having coffee-ground emesis for the last 2 weeks' duration. Possibly related to severe esophagitis or peptic ulcer disease. 2. End-stage renal disease on hemodialysis. RECOMMENDATIONS: 1. Continue with IV Protonix 40 mg q.12 hours. 2. Zofran as needed for the nausea and vomiting. 3. Start him on a liquid diet. 4. Will proceed with an upper endoscopy tomorrow. I discussed with him the risks, benefits, and complications and he is agreeable to it. Thank you for this consultation.
[2016-08-28] MEDS: DOPamine DRIP 800 MG in DEXTROSE/WATER 1 500ML.BAG IV SCH (22:31)
[2016-08-28 23:58] LABS: Glucose,Whole Blood 207 mg/dL (75-99)
[2016-08-29] MEDS: MORPHINE SULFATE 2 MG/ML SYRINGE IV PRN ×6 (01:25→23:10)
[2016-08-29] MEDS: DEXTROSE 5% IN WATER 1,000 ML IV SCH (01:47)
[2016-08-29] MEDS: ONDANSETRON 4 MG/2 ML VIAL IVP PRN ×2 (02:45→16:43)
[2016-08-29 04:42] LABS: Glucose,Whole Blood 171 mg/dL (75-99)
[2016-08-29 04:55] LABS: Anisocytosis Slight; CH 32.1; CHCM 35.4; HCT 22.6 % (39.0-53.0); HDW 3.61; HGB 7.9 gm/dL (13.0-17.5); MCH 31.9 pg (25.0-35.0); MCHC 34.9 g/dL (31.0-37.0); MCV 91.7 fL (80.0-100.0); Mean Platelet Volume 8.6; Poikilocytosis Slight; RBC 2.47 m/uL (4.30-5.90); RDW 17.6 % (11.5-15.5); WBC 8.2 k/uL (3.8-10.6)
[2016-08-29 05:28] LABS: Calcium 7.2 mg/dL (8.4-10.2); Magnesium 2.7 mg/dL (1.6-2.3); Potassium 4.8 mmol/L (3.5-5.1)
[2016-08-29 08:00] LABS: Glucose,Whole Blood 159 mg/dL (75-99)
[2016-08-29] MEDS: DRONABINOL 2.5 MG CAP PO SCH ×3 (08:38→17:27)
[2016-08-29 08:41] LABS: INR 1.9 (<1.1); Prothrombin Time 18.2 sec (9.0-12.0)
[2016-08-29 08:46] LABS: Glucose,Whole Blood 152 mg/dL (75-99)
[2016-08-29 08:46] LABS: Glucose,Whole Blood 364 mg/dL (75-99)
[2016-08-29] MEDS: LISINOPRIL 20 MG TAB PO SCH ×2 (08:46→20:31)
[2016-08-29] MEDS: PANTOPRAZOLE 40 MG/10 ML VIAL IVP SCH ×2 (08:47→21:32)
[2016-08-29] MEDS: levETIRAcetam 500 MG TAB PO SCH ×2 (10:03→20:34)
[2016-08-29] MEDS: SERTRALINE 50 MG TAB PO SCH (10:03)
[2016-08-29] MEDS: ERYTHROMYCIN 250 MG TAB PO SCH ×3 (10:03→23:11)
--- NOTE | 2016-08-29 11:08 | CONS ---
DATE OF CONSULTATION: Mr. Burroughs is a 35-year-old gentleman with history of endstage renal disease on hemodialysis, diabetes mellitus, bipolar disorder and also cardiomyopathy with ejection fraction of 20% being followed by Dr. Branch. Apparently he missed a few dialysis and was sent in the emergency room for further evaluation of hematemesis and hematochezia. He was found to be severely anemic with hemoglobin of 5.4. Patient has received blood transfusions. Patient was seen by Gastroenterology and endoscopy is being planned. We are asked to see the patient because of abnormal troponin values. Patient's proBNP is also highly elevated. Patient has cardiomyopathy. Patient does not seem to be in any acute respiratory distress. Denies any chest pain. His past medical history is significant for cardiomyopathy, chronic congestive heart failure, diabetes mellitus, polyneuropathy, renal failure, GI reflux disease, chronic pain syndrome. The rest of the information as per the chart. Surgical history includes appendectomy and orthopedic surgery. His medications prior to admission include hydralazine, Keppra, Valium, erythromycin, folic acid, insulin, Lasix 80 mg p.o. b.i.d., Zestril 20 mg p.o. b.i.d., melatonin, Zofran and Protonix. Patient is allergic to KEFLEX, CIPRO, SULFA, VICODIN. Physical examination at this time reveals a thin-looking gentleman, complaining of significant pain in the hip area. Blood pressure is running about 90/50. Pulse is 58, pulse ox saturation 93%. Neck is supple. Mild jugular distention. HEART: S1 and S2 heard. Lungs show diminished breath sounds at bases. Abdomen is soft. Lab values showed hemoglobin of 8.2 of transfusions, but initially was around 5. Creatinine is about 3.66, BUN is 93. FINAL IMPRESSION: 1. Acute blood loss anemia. 2. Upper gastrointestinal bleeding. 3. Abnormal troponins most probably secondary to renal failure and also demand supply mismatch. 4. Chronic renal failure, on dialysis. 5. Hypertension. 6. Diabetic mellitus. 7. Severe cardiomyopathy and chronic congestive heart failure. PLAN: Continue current management. Possible endoscopy. Hold lisinopril, continue diuretics and dialysis. Further recommendations depend upon the clinical course. [facility]
[2016-08-29] MEDS ORDERED: DEXTROSE 5%-0.9% NACL 1,000 ML IV SCH (11:45)
[2016-08-29 12:00] LABS: Glucose,Whole Blood 149 mg/dL (75-99)
--- NOTE | 2016-08-29 12:02 | P.PN ---
Subjective This is a 35-year-old male. He is a patient of Dr. Tobias Conway with past mental history of end-stage renal disease on hemodialysis Monday and Monday, diabetes mellitus type 1 uncontrolled, diabetic gastroparesis with nerve stimulator in place, chronic anemia, diabetic polyneuropathy, generalized anxiety disorder, bipolar disorder, seizure disorder, hypertension, hyperlipidemia, chronic pain syndrome, gastroesophageal reflux disease, history of MRSA infection, retinopathy, advanced cardiomyopathy with ejection fraction 20% followed by cardiology. Patient was seen in emergency room secondary to the fact that the patient has been refusing to go to hemodialysis, and he had missed hemodialysis on Monday and , and the patient was complaining of episode of hematemesis without hematochezia for the past few weeks, the patient was found to have a hemoglobin of 5.4, slightly elevated troponin of 0.7, and the patient was quite edematous, and the patient was admitted to the intensive care unit under the care of Dr. Payne, I received a call from the nursing staff in the ICU stating that patient needed to be admitted under your service since the patient was seen by us back in May 2016, subsequently I came and saw the patient along with the ICU nurse Augusta. Patient already was seen and evaluated by Dr. Quintero from intensive care as well as nephrology Dr. Payne, and he scheduled to go for EGD with Dr. Bai hopefully forcing the morning for EGD. Patient did receive 3 units of packed red blood cells. 08/29: Patient remains in intensive care unit. He has been weaned off dopamine. He is scheduled for EGD today with Dr. Valerie Calvillo. He has continued on Aranesp and plan for hemodialysis tomorrow. Hemoglobin is 7.9. Objective - Vital Signs Vital signs: Vital Signs Temp 97.6 F 08/29/16 08:00 Pulse 58 L 08/29/16 08:00 Resp 22 08/29/16 08:00 BP 106/59 08/29/16 08:00 Pulse Ox 100 08/29/16 08:00 Intake & Output 08/28/16 08/29/16 08/29/16 18:59 06:59 18:59 Intake Total 1773.398 430 20 Output Total 0 0 Balance 1773.398 430 20 Intake: IV 300 380 20 Dextrose 5% in Water 1, 250 360 20 000 ml @ 50 mls/hr IV . Q20H MARY Rx#:[id number] Normal Saline 0.9 50 20 Intake, IV Titration 443.398 50 Amount DOPamine DRIP 800 mg In 93.398 Dextrose/Water 1 500ml. bag @ 1 MCG/KG/MIN 2.04 mls/hr IV .Q24H MARY Rx#: [id number] Dextrose 10% in Water 500 350 50 ml In Empty Bag 1 bag @ 50 mls/hr IV .Q10H MARY Rx #:[id number] Oral 410 Blood Product 620 Rc As-1 Unit 310 [id number] Rc As-3 Unit 310 [id number] Output: Urine 0 0 - Exam General appearance: mild distress, thin - EENT Eyes: EOMI, PERRLA, no ptosis, no scleral icterus ENT: hearing grossly normal, NA/AT, no normal oropharynx Ears: bilateral: normal - Neck Neck: no lymphadenopathy, normal ROM, no rigidity, no stridor Carotids: bilateral: upstroke normal Thyroid: bilateral: normal size - Respiratory Respiratory: bilateral: diminished, negative: dullness, rales, rhonchi, wheezing , prolonged expiration, prolonged inspiration - Cardiovascular Rhythm: regular Heart sounds: normal: S1, S2 Abnormal Heart Sounds: systolic murmur, S3 Gallop - Gastrointestinal General gastrointestinal: normal bowel sounds, soft, no splenomegaly, tenderness (There is a gastric pacemaker.) - Integumentary Integumentary: ulcer (Side of the left big toe with this.) - Neurologic Neurologic: CNII-XII intact - Musculoskeletal Musculoskeletal: generalized weakness - Psychiatric Psychiatric: A&O x's 3, no appropriate affect, no intact judgment & insight - Labs CBC & Chem 7: 08/29/16 04:22 08/29/16 04:22 Labs: Abnormal Lab Results - Last 24 Hours (Table) 08/28/16 08/28/16 08/28/16 Range/Units 09:35 12:15 12:57 RBC (4.30-5.90) m/uL Hgb (13.0-17.5) gm/dL Hct (39.0-53.0) % RDW (11.5-15.5) % Plt Count (150-450) k/uL PT (9.0-12.0) sec Sodium (137-145) mmol/L Chloride (98-107) mmol/L BUN (9-20) mg/dL Creatinine (0.66-1.25) mg/dL Glucose (74-99) mg/dL POC Glucose (mg/dL) 66 L 63 L 61 L (75-99) mg/dL Calcium (8.4-10.2) mg/dL Phosphorus (2.5-4.5) mg/dL Magnesium (1.6-2.3) mg/dL 08/28/16 08/28/16 08/28/16 Range/Units 13:17 16:21 19:57 RBC (4.30-5.90) m/uL Hgb (13.0-17.5) gm/dL Hct (39.0-53.0) % RDW (11.5-15.5) % Plt Count (150-450) k/uL PT (9.0-12.0) sec Sodium (137-145) mmol/L Chloride (98-107) mmol/L BUN (9-20) mg/dL Creatinine (0.66-1.25) mg/dL Glucose (74-99) mg/dL POC Glucose (mg/dL) 67 L 107 H 210 H (75-99) mg/dL Calcium (8.4-10.2) mg/dL Phosphorus (2.5-4.5) mg/dL Magnesium (1.6-2.3) mg/dL 08/28/16 08/29/16 08/29/16 Range/Units 23:56 04:22 04:22 RBC 2.47 L (4.30-5.90) m/uL Hgb 7.9 L (13.0-17.5) gm/dL Hct 22.6 L (39.0-53.0) % RDW 17.6 H (11.5-15.5) % Plt Count 134 L (150-450) k/uL PT (9.0-12.0) sec Sodium 128 L (137-145) mmol/L Chloride 97 L (98-107) mmol/L BUN 99 H* (9-20) mg/dL Creatinine 4.10 H (0.66-1.25) mg/dL Glucose 158 H (74-99) mg/dL POC Glucose (mg/dL) 207 H (75-99) mg/dL Calcium 7.2 L (8.4-10.2) mg/dL Phosphorus 5.0 H (2.5-4.5) mg/dL Magnesium 2.7 H (1.6-2.3) mg/dL 08/29/16 08/29/16 08/29/16 Range/Units 04:40 07:59 08:20 RBC (4.30-5.90) m/uL Hgb (13.0-17.5) gm/dL Hct (39.0-53.0) % RDW (11.5-15.5) % Plt Count (150-450) k/uL PT 18.2 H (9.0-12.0) sec Sodium (137-145) mmol/L Chloride (98-107) mmol/L BUN (9-20) mg/dL Creatinine (0.66-1.25) mg/dL Glucose (74-99) mg/dL POC Glucose (mg/dL) 171 H 159 H (75-99) mg/dL Calcium (8.4-10.2) mg/dL Phosphorus (2.5-4.5) mg/dL Magnesium (1.6-2.3) mg/dL 08/29/16 08/29/16 Range/Units 08:39 08:44 RBC (4.30-5.90) m/uL Hgb (13.0-17.5) gm/dL Hct (39.0-53.0) % RDW (11.5-15.5) % Plt Count (150-450) k/uL PT (9.0-12.0) sec Sodium (137-145) mmol/L Chloride (98-107) mmol/L BUN (9-20) mg/dL Creatinine (0.66-1.25) mg/dL Glucose (74-99) mg/dL POC Glucose (mg/dL) 364 H 152 H (75-99) mg/dL Calcium (8.4-10.2) mg/dL Phosphorus (2.5-4.5) mg/dL Magnesium (1.6-2.3) mg/dL Assessment and Plan Plan: 1. Acute blood loss anemia and hypovolemic shock status post 3 units of packed red blood cell transfusion. His hemoglobin is stable at 8.4. 2. Upper GI bleed. Patient will be admitted to the ICU, GI consultation for EGD today, monitor patient closely, Dr. Quintero consult for intensive care management. Monitor CBC. Transfuse for hemoglobin less than 7. 3. Hypoglycemia . Patient D5W was changed to D10 W, for the next few hours and then monitor the patient blood glucose very closely when the patient is stable he will be switched back to D5W. 4. End-stage renal disease on hemodialysis Monday, , Monday. Consult with Dr. Payne. 5. Chronic pain syndrome. He was morphine 2 mg IV push every 4 hours as needed. 6. Hypertension and hypertensive cardiovascular disease. Currently hypotensive , hold cerebral for now continue patient on dopamine for now. 7. Diabetes mellitus type 1 uncontrolled presenting with hypoglycemia. Patient is on D10w at 50 mL per hour area continue With blood glucose. Insulins are on hold. 8. Severe cardiomyopathy and chronic systolic heart failure with ejection fraction 20% followed by Dr. Branch. Patient may require ICD device in the future. Continue Lasix 80 mg twice daily, hold off lisinopril because of the hypertension. 9. Chronic seizure disorder. Continue Keppra 500 mg twice daily. 10. Generalized anxiety and panic attack. Currently on Valium. 11. Chronic diabetic neuropathy. Stable. 12. Chronic anemia due to chronic kidney disease. Patient has been on Aranesp 60 g subcutaneously every Monday. 13. Gastrointestinal prophylaxis. Continue Protonix 40 mg IV push every 24 hours. 14. DVT prophylaxis. Bilateral knee-high REHANA hose. Discharge plan: Return to [facility] Impression and plan of care have been directed as dictated by the signing physician. Gretel Freitas nurse practitioner acting as scribe for signing physician.
[2016-08-29] MEDS ORDERED: PROPOFOL 10 MG/ML 20 ML VIAL IV ONE (13:48)
[2016-08-29] MEDS ORDERED: PHENYLEPHRINE-0.9% NACL SYG 1 MG/10 ML SYRINGE ONE (13:48)
[2016-08-29] MEDS ORDERED: IV FLUID CONTINUATION 1,000 ML IV ONE (13:51)
--- NOTE | 2016-08-29 13:57 | P.PN ---
Subjective This is a 35-year-old male being evaluated and examined today in the intensive care unit. Patient came into the emergency room after refusing to go to his hemodialysis appointments on Monday and . The patient was complaining of hematemesis for the past few weeks. Patient was found to have a hemoglobin of 5.4 and was quite edematous. Patient was admitted to the intensive care unit and did receive 3 units of packed red blood cells. Patient has a past medical history of end-stage renal disease with dialysis on Tuesdays and Saturdays, diabetes mellitus type 1 uncontrolled, diabetic gastroparesis with nerve stimulator in place, chronic anemia, diabetic polyneuropathy, generalized anxiety disorder, bipolar disorder, seizure disorder, hypertension, hyperlipidemia, chronic pain syndrome, GERD, history of MRSA infection, and advanced cardiomyopathy with ejection fraction of 20%. Patient has consults on for nephrology as well as GI. The patient is scheduled to go for an EGD today with Dr. Bai. Upon examination the patient is resting up in bed on room air. He states he just feels ill and not himself. He denies any cough or congestion or sputum production at this time. Objective - Vital Signs Vital signs: Vital Signs Temp 98 F 08/29/16 12:00 Pulse 54 L 08/29/16 12:00 Resp 10 L 08/29/16 12:00 BP 104/57 08/29/16 12:00 Pulse Ox 100 08/29/16 09:00 Intake & Output 08/28/16 08/29/16 08/29/16 18:59 06:59 18:59 Intake Total 1773.398 430 150 Output Total 0 1000 Balance 1773.398 430 -850 Weight 57.4 kg Intake: IV 300 380 150 Dextrose 5% in Water 1, 250 360 150 000 ml @ 50 mls/hr IV . Q20H MARY Rx#:[id number] Normal Saline 0.9 50 20 Intake, IV Titration 443.398 50 Amount DOPamine DRIP 800 mg In 93.398 Dextrose/Water 1 500ml. bag @ 1 MCG/KG/MIN 2.04 mls/hr IV .Q24H MARY Rx#: [id number] Dextrose 10% in Water 500 350 50 ml In Empty Bag 1 bag @ 50 mls/hr IV .Q10H MARY Rx #:[id number] Oral 410 Blood Product 620 Rc As-1 Unit 310 [id number] Rc As-3 Unit 310 [id number] Output: Urine 0 1000 - Exam GENERAL EXAM: Alert, cachectic, comfortable in no apparent distress. HEAD: Normocephalic. EYES: Normal reaction of pupils, equal size. NOSE: Clear with pink turbinates. THROAT: No erythema or exudates. NECK: No masses, no JVD. CHEST: No chest wall deformity. LUNGS: Equal air entry with no crackles, wheeze, rhonchi or dullness. Diminished CVS: S1 and S2 normal with no audible mumurs, regular rhythm. ABDOMEN: No hepatosplenomegaly, normal bowel sounds, no guarding or rigidity. EXTREMITIES: No edema noted, pedal pulses palpable. SKIN: No rashes CENTRAL NERVOUS SYSTEM: No focal deficits, tone is normal in all 4 extremities. - Labs CBC & Chem 7: 08/29/16 04:22 08/29/16 04:22 Labs: Abnormal Lab Results - Last 24 Hours (Table) 08/28/16 08/28/16 08/28/16 Range/Units 16:21 19:57 23:56 RBC (4.30-5.90) m/uL Hgb (13.0-17.5) gm/dL Hct (39.0-53.0) % RDW (11.5-15.5) % Plt Count (150-450) k/uL PT (9.0-12.0) sec Sodium (137-145) mmol/L Chloride (98-107) mmol/L BUN (9-20) mg/dL Creatinine (0.66-1.25) mg/dL Glucose (74-99) mg/dL POC Glucose (mg/dL) 107 H 210 H 207 H (75-99) mg/dL Calcium (8.4-10.2) mg/dL Phosphorus (2.5-4.5) mg/dL Magnesium (1.6-2.3) mg/dL 08/29/16 08/29/16 08/29/16 Range/Units 04:22 04:22 04:40 RBC 2.47 L (4.30-5.90) m/uL Hgb 7.9 L (13.0-17.5) gm/dL Hct 22.6 L (39.0-53.0) % RDW 17.6 H (11.5-15.5) % Plt Count 134 L (150-450) k/uL PT (9.0-12.0) sec Sodium 128 L (137-145) mmol/L Chloride 97 L (98-107) mmol/L BUN 99 H* (9-20) mg/dL Creatinine 4.10 H (0.66-1.25) mg/dL Glucose 158 H (74-99) mg/dL POC Glucose (mg/dL) 171 H (75-99) mg/dL Calcium 7.2 L (8.4-10.2) mg/dL Phosphorus 5.0 H (2.5-4.5) mg/dL Magnesium 2.7 H (1.6-2.3) mg/dL 08/29/16 08/29/16 08/29/16 Range/Units 07:59 08:20 08:39 RBC (4.30-5.90) m/uL Hgb (13.0-17.5) gm/dL Hct (39.0-53.0) % RDW (11.5-15.5) % Plt Count (150-450) k/uL PT 18.2 H (9.0-12.0) sec Sodium (137-145) mmol/L Chloride (98-107) mmol/L BUN (9-20) mg/dL Creatinine (0.66-1.25) mg/dL Glucose (74-99) mg/dL POC Glucose (mg/dL) 159 H 364 H (75-99) mg/dL Calcium (8.4-10.2) mg/dL Phosphorus (2.5-4.5) mg/dL Magnesium (1.6-2.3) mg/dL 08/29/16 08/29/16 Range/Units 08:44 11:59 RBC (4.30-5.90) m/uL Hgb (13.0-17.5) gm/dL Hct (39.0-53.0) % RDW (11.5-15.5) % Plt Count (150-450) k/uL PT (9.0-12.0) sec Sodium (137-145) mmol/L Chloride (98-107) mmol/L BUN (9-20) mg/dL Creatinine (0.66-1.25) mg/dL Glucose (74-99) mg/dL POC Glucose (mg/dL) 152 H 149 H (75-99) mg/dL Calcium (8.4-10.2) mg/dL Phosphorus (2.5-4.5) mg/dL Magnesium (1.6-2.3) mg/dL Assessment and Plan Plan: Assessment Acute blood loss anemia Upper GI bleed Hypoglycemia End-stage renal disease on hemodialysis Tuesdays and Saturdays Chronic pain syndrome Hypotension, currently off dopamine Severe cardiomyopathy with chronic systolic heart failure, ejection fraction of 20% Chronic seizure disorders Generalized anxiety and panic attacks Chronic anemia due to chronic kidney disease History of Hypertension and hypertensive cardiovascular disease Diabetes mellitus type 1 uncontrolled Plan Medications have been reviewed and will be continued as ordered. Patient will be having an EGD today with Dr. Bai. We will switch his IV fluids to D5 and 0.9 normal saline. Patient has a morphine for pain. Patient will be transfused 1 unit of blood if hemoglobin comes back less than 7. Nephrology, cardiology and GI also on consult. DVT and GI prophylaxis. We will continue to monitor labs/results and adjust treatment as necessary. I performed an examination of the patient and discussed their management with the nurse practitioner. I have reviewed the nurse practitioner's note and agree with the documented findings and plan of care.
--- NOTE | 2016-08-29 14:18 | P.PCN ---
Date of Procedure: 08/29/16 Procedure(s) Performed: Procedure: Esophagogastroduodenoscopy and biopsy. Preoperative diagnosis: Anemia and coffee-ground emesis. Postoperative diagnosis: 1. 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 2. Mild gastritis with no ulcers or active bleeding. 3. Biopsies obtained from the antrum and esophagus. Preparation and sedation: Was provided by anesthesia. Brief clinical history: The patient is a 35-year-old male with insulin- dependent diabetes mellitus and end-stage renal disease on hemodialysis. Patient has history of gastroparesis and underwent placement of a neuro gastric stimulator around 2 years ago. The patient has been experiencing nausea and vomiting, including coffee-ground emesis for the last 2 weeks or so and presented to the hospital with a hemoglobin of around 5. The details as summarized in the history and physical and dictated consultation. This evaluation to assess for a source of upper GI bleeding or other pathology. Procedure: With the patient on his left lateral decubitus position and after informed consent and adequate sedation, I passed the Olympus-GIF 160 video upper endoscope through the cricopharyngeus down the esophagus. GE junction was around 40 cm from the incisors and there was a very small sliding hiatal hernia. The esophagus showed erythema and multiple whitish/yellowish exudate consistent with Carmen esophagitis. Some of this exudate was moving easily after contact with the endoscope but some were sticky. I obtained biopsies from the esophagus at the conclusion of the exam to rule out Carmen esophagitis. The stomach was insufflated with air and inspected in detail including the retroflex view in the cardia. There was diffuse mottling and erythema but no ulcers, erosions or bleeding. Pyloric channel, duodenal bulb, post bulbar area and descending duodenum appeared within normal limits. I obtained biopsies from the antrum as well, then the endoscope was withdrawn. The patient tolerated the procedure well. Plan: Will allow liquid diet and start Diflucan. Will continue Protonix and monitoring of blood counts. Further plans based on his course.
--- NOTE | 2016-08-29 14:44 | PN ---
Patient is seen for follow-up for end-stage renal disease. He was admitted to the hospital with weakness, inability to eat and was found to have a hemoglobin of 5 g/dL. He has been transfused about 3 units of packed RBCs and is scheduled for endoscopy today. The patient is normally maintained on a Monday, , Monday schedule for dialysis. On examination today, he is comfortable. Blood pressure is 104/57, heart rate 56 per minute. He is afebrile. Examination of the heart: S1 and S2. Examination of the lungs: Bilateral breath sounds are heard. Abdomen is soft, nontender. Examination of lower extremities shows edema 1+ bilaterally. PURCHASING/RECEIVING exam is grossly intact. Patient is moving all 4 extremities. Labs show sodium 128, potassium 4.8. Hemoglobin 7.9 g/dL. ASSESSMENT: 1. End-stage renal disease on hemodialysis. Patient will be dialyzed tomorrow. 2. Gastrointestinal bleed. No active bleeding noted at this time. Patient is scheduled for endoscopy today. He is being followed by GI. 3. Recent right hip surgery. 4. Severe cardiomyopathy. 5. Hypervolemic hyponatremia. Expect further improvement with dialysis tomorrow. PLAN: Hemodialysis in a.m. If the blood sugars are improved we can discontinue the D5W and repeat labs in a.m.
--- NOTE | 2016-08-29 15:04 | PN ---
DATE OF SERVICE: 08/28/2016. REASON FOR CONSULTATION: Severe anemia, ICU Care and renal failure. HISTORY OF PRESENTING ILLNESS: Mr. Shyam Maharaj is seen, evaluated and examined. He is a 35-year-old somewhat noncompliant patient, has very complex past medical history related to his renal failure as well as multiple comorbidities. The patient has history of chronic persistent asthma and diabetes, chronic renal failure on hemodialysis with fistula in the left arm, also had history of seizure disorder. The patient had bilateral ( ) and gastroparesis. History of gastric ulcer and poor gastric emptying associated with advanced gastroparesis. The patient is a resident of [facility] where he was noted to have hematemesis as well as ( ) during dialysis. Because of low hemoglobin count, the patient has been transferred to the emergency department where he has been seen, evaluation and examined and is now admitted to the ICU. PAST MEDICAL HISTORY: As dictated above, significant for chronic persistent asthma, advanced diabetes mellitus, chronic renal failure, on hemodialysis, left AV fistula, GERD, seizure disorder and diabetic neuropathy, history of retinal detachment, gastroparesis, gastric ulcer and advanced gastric paresis. Major depression, diabetic foot ulcer involving the right foot. Past surgical history is status post appendectomy, history of debridement left great toe. Patient used to follow with wound care center and bilateral surgeries and bilateral laser eye surgery for retinal detachment, history of gastric neurostimulator placement; right hand fracture requiring open reduction internal fixation and dialysis fistula, history of abscess of the abdomen, history of ( ) tendon repair and incision and drainage, history of hip surgery 3 weeks ago FAMILY HISTORY AND SOCIAL HISTORY: Smokes half to 1 pack per day. No history of substance use or alcohol consumption. Is a resident of [facility] due to multiple comorbidities. Strong history of cardiovascular disease in both maternal and paternal sides, history of thyroid disorder on maternal side. Patient has been noted to be significantly bradycardic and hypertensive, requiring dopamine. Patient does have a right-sided IJ triple lumen catheter. In addition to that, patient has recurrent hypoglycemia requiring frequent D50 and on maintenance D5 as well. Due to borderline blood pressure he required 0.5 liters of crystalloids with some stabilization though. The patient is due for endoscopy as well as hemodialysis tomorrow. His current medications are reviewed and include: 1. Aranesp 60 mcg each week. 2. D5 is KVO. 3. Valium. 4. Dopamine. 5. Marinol. 6. Erythromycin. 7. Lasix 80 mg p.o. 2 times a day. 8. Levemir. 9. Lactulose. 10. Keppra 500 b.i.d. 11. Zestril 20 mg p.o. 2 times a day. 12. Melatonin 3 mg at bedtime. 13. Morphine for pain control. 14. Zofran. 15. Protonix. 16. Scopolamine patch. 17. Sertraline. On examination, his most recent vitals include blood pressure is 96/59, respiratory rate is 20, heart rate is 50 to 55, temperature 96, saturation 95% on room air, Overall ( ) exam is otherwise unremarkable. Oral mucosa is moist. NECK: Supple. No JVD is present. No bruits present. LUNGS: Bilateral good air entry is present without significant rales, rhonchi, or rub. HEART: Regular rate and rhythm. S1 and S2 audible. ABDOMEN: Soft. EXTREMITIES: +1 peripheral pulses. NEUROLOGICAL EXAMINATION: Awake, opens eyes. Follows simple commands. Neurological exam is within normal limits. His laboratory data reviewed. The white cell count 9000, hemoglobin 5.4 and hematocrit 16.2, platelet count 179,000. PT, INR is 31.6 and 3.3. Sodium 129, potassium 4.6. BUN and creatinine 159 and 5.54. Glucose was 59. LFTs within normal limits. Troponin is 0.7. BNP is 77,100. Stool for occult blood is positive. Hepatitis panel is negative. IMPRESSION: 1. Acute on chronic blood loss anemia related to multifactorial process including chronic renal failure, likely slow and loss of blood from the gut, heme positive stools. Plan is to transfuse with 2 units of packed RBC, ( ) hemoglobin came up to 8.2. The patient is being planned for endoscopy. We will continue to monitor hemoglobin closely, transfuse if hemoglobin drops less than 7. 2. Bradycardia and hypotension, likely related to multifactorial process; however, patient appears to be responding with dopamine and did respond with shower small bolus of crystalloids. 3. Intermittent hypoglycemia, likely revealed poor ( ) and catabolic state with protein calorie malnourishment and ( ) on arrival was only 2.3. Would recommend to change D5 to D10 and if continues to have hypoglycemic aim for sugar between 100 to 150. 4. Hypoglycemia. Plan as above. 5. Chronic renal failure. The patient underwent hemodialysis. 6. Chronic pain syndrome. Continue pain medications. 7. Maintain peptic ulcer disease prophylaxis, the patient is not a candidate for anticoagulation, ( ) likely ( ) reserve. 8. Cardiomyopathy with acute on chronic systolic heart failure with baseline ejection fraction of 20% and the patient is gently being diuresed. The patient is being followed by cardiology as well. 9. Seizure disorder overall stable. 10. Complicated diabetes with complications of gastroparesis, neuropathy and renal failure. Continue supportive care. Will follow.
[2016-08-29 16:37] LABS: Glucose,Whole Blood 171 mg/dL (75-99)
[2016-08-29] MEDS: FLUCONAZOLE 100 MG TAB PO SCH (16:40)
[2016-08-29 20:06] LABS: Glucose,Whole Blood 271 mg/dL (75-99)
[2016-08-29 20:45] LABS: Glucose,Whole Blood 318 mg/dL (75-99)
[2016-08-29] MEDS ORDERED: INSULIN DETEMIR 100 UNIT/ML 10 ML VIAL SQ SCH (21:00)
[2016-08-29] MEDS: SODIUM CHLORIDE 0.9% 1,000 ML IV SCH (21:07)
[2016-08-29] MEDS: INSULIN LISPRO (humaLOG) 300 UNIT/3 ML VIAL SQ SCH (21:29)
[2016-08-30] MEDS: MORPHINE SULFATE 2 MG/ML SYRINGE IV PRN ×8 (02:08→23:59)
[2016-08-30] MEDS ORDERED: MORPHINE SULFATE 2 MG/ML SYRINGE ONE (04:15)
[2016-08-30 06:15] LABS: Glucose,Whole Blood 311 mg/dL (75-99)
[2016-08-30] MEDS: ERYTHROMYCIN 250 MG TAB PO SCH ×3 (06:29→20:36)
[2016-08-30] MEDS: DRONABINOL 2.5 MG CAP PO SCH ×3 (06:32→17:26)
[2016-08-30] MEDS: INSULIN LISPRO (humaLOG) 300 UNIT/3 ML VIAL SQ SCH ×4 (08:08→21:29)
[2016-08-30] MEDS: levETIRAcetam 500 MG TAB PO SCH ×2 (08:09→20:37)
[2016-08-30] MEDS: SERTRALINE 50 MG TAB PO SCH (08:09)
[2016-08-30] MEDS: PANTOPRAZOLE 40 MG/10 ML VIAL IVP SCH ×2 (08:09→20:36)
[2016-08-30] MEDS: FLUCONAZOLE 100 MG TAB PO SCH (08:09)
[2016-08-30] MEDS: LISINOPRIL 20 MG TAB PO SCH ×2 (08:09→20:36)
[2016-08-30] MEDS ORDERED: DARBEPOETIN ALFA 60 MCG/0.3 ML SYRINGE SQ SCH (09:00)
--- NOTE | 2016-08-30 09:51 | P.PN ---
Subjective Principal diagnosis: Anemia coffee-ground emesis Status post EGD yesterday for evaluation of anemia and coffee-ground emesis. Carmen esophagitis and reflux esophagitis. Requesting diet advancement this morning. Denies abdominal pain. Intermittent nausea no emesis through the night. CBC not available this morning. Objective - Vital Signs Vital signs: Vital Signs Temp 98.3 F 08/30/16 08:00 Pulse 68 08/30/16 08:00 Resp 18 08/30/16 08:00 BP 94/52 08/30/16 08:00 Pulse Ox 95 08/30/16 09:45 Intake & Output 08/29/16 08/30/16 08/30/16 18:59 06:59 18:59 Intake Total 400 1300 125 Output Total 1000 0 Balance -600 1300 125 Weight 57.4 kg 59 kg Intake: IV 400 100 Dextrose 5% in Water 1, 350 100 000 ml @ 50 mls/hr IV . Q20H MARY Rx#:[id number] Intake, IV Titration 150 Amount Sodium Chloride 0.9% 1, 150 000 ml @ 50 mls/hr IV . Q20H MARY Rx#:[id number] Oral 1050 125 Output: Urine 1000 0 Other: # Voids 0 - Exam General appearance: The patient is alert, oriented, in no acute distress. HET: Head is normocephalic and atraumatic. Pupils are equal and reactive. Oropharynx is clear without lesions. Neck: Supple without lymphadenopathy. Trachea midline. Heart: S1 S2. Regular rate and rhythm. Lungs: No crackles or wheezes are heard. Abdomen: Soft, mild midepigastric tenderness, nondistended with bowel sounds. No peritoneal signs. No palpable organomegaly or masses. Extremities: Normal skin color and turgor. No cyanosis, rash, ulceration, clubbing, or edema. Radial and pedal pulses are 2/4 bilaterally. Neurological: No focal deficits. Strength and sensation are grossly intact. - Labs CBC & Chem 7: 08/29/16 04:22 08/29/16 04:22 Labs: Abnormal Lab Results - Last 24 Hours (Table) 08/27/16 08/29/16 08/29/16 Range/Units 17:00 11:59 16:35 POC Glucose (mg/dL) 149 H 171 H (75-99) mg/dL Crossmatch See Detail 08/29/16 08/29/16 08/30/16 Range/Units 20:04 20:43 06:14 POC Glucose (mg/dL) 271 H 318 H 311 H (75-99) mg/dL Crossmatch Assessment and Plan (1) Carmen esophagitis Status: Acute (2) Reflux esophagitis Status: Acute (3) End stage renal disease Narrative/Plan: Hemodialysis Status: Acute (4) Insulin dependent diabetes mellitus Status: Acute (5) Coffee ground emesis Status: Acute (6) Acute blood loss anemia Status: Acute (7) Chronic disease anemia Status: Acute (8) GI bleed Status: Acute (9) Chronic anemia Status: Acute (10) Cardiomyopathy Narrative/Plan: Severe Status: Acute Plan: 1. Continue Diflucan daily 2-3 weeks. Protonix 40 mg twice daily. Antinausea medications as indicated. 2. Advance diet. We'll follow as needed. Return to office 2-3 weeks. Assessment and plan of care discussed with Dr. Cortez.
[2016-08-30] MEDS: ONDANSETRON 4 MG/2 ML VIAL IVP PRN (10:00)
--- NOTE | 2016-08-30 10:09 | P.PN ---
Subjective Patient is seen in follow-up for end-stage renal disease. He is maintained on hemodialysis on a Monday schedule via left upper extremity AV graft. Patient presented to the hospital with a hemoglobin of 5. He did receive multiple packed red blood cell transfusions. Hemoglobin was up to 7.9 as of yesterday. He underwent EGD which revealed carmen esophagitis as well as gastritis and no evidence of acute bleeding. He denies any melena or hematochezia. Denies hemoptysis. He does feel hungry and is requesting his diet to be advanced. Hemodynamically stable. Vital signs are stable. General: The patient appeared well nourished and normally developed. HEENT: Head exam is unremarkable. Neck is without jugular venous distension. LUNGS: Lungs are clear to auscultation and percussion. Breath sounds decreased. HEART: Rate and Rhythm are regular. First and second heart sounds normal. No murmurs, rubs or gallops. ABDOMEN: Abdominal exam reveals normal bowel sounds. Non-tender and non- distended. No evidence of peritonitis. EXTREMITITES: No clubbing, cyanosis, or edema. Objective - Vital Signs Vital signs: Vital Signs Temp 98.3 F 08/30/16 08:00 Pulse 68 08/30/16 08:00 Resp 18 08/30/16 08:00 BP 94/52 08/30/16 08:00 Pulse Ox 95 08/30/16 09:45 Intake & Output 08/29/16 08/30/16 08/30/16 18:59 06:59 18:59 Intake Total 400 1300 125 Output Total 1000 0 Balance -600 1300 125 Weight 57.4 kg 59 kg Intake: IV 400 100 Dextrose 5% in Water 1, 350 100 000 ml @ 50 mls/hr IV . Q20H MARY Rx#:[id number] Intake, IV Titration 150 Amount Sodium Chloride 0.9% 1, 150 000 ml @ 50 mls/hr IV . Q20H MARY Rx#:[id number] Oral 1050 125 Output: Urine 1000 0 Other: # Voids 0 - Labs CBC & Chem 7: 08/29/16 04:22 08/29/16 04:22 Labs: Abnormal Lab Results - Last 24 Hours (Table) 08/27/16 08/29/16 08/29/16 Range/Units 17:00 11:59 16:35 POC Glucose (mg/dL) 149 H 171 H (75-99) mg/dL Crossmatch See Detail 08/29/16 08/29/16 08/30/16 Range/Units 20:04 20:43 06:14 POC Glucose (mg/dL) 271 H 318 H 311 H (75-99) mg/dL Crossmatch Assessment and Plan Plan: Assessment: #1. End-stage renal disease maintained on hemodialysis on a Monday schedule via left upper extremity AV graft. #2. Acute anemia status post multiple blood transfusions. Hemoglobin 7.9 as of yesterday. #3. Carmen esophagitis and gastritis. #4. Chronic kidney disease mineral bone disease. #5. Hypervolemic hyponatremia. Plan: Hemodialysis today with goal 2 liters ultrafiltration. Monitor hemoglobin closely. Maintain Aranesp. Hold antihypertensives for systolic blood pressure less than 120. Diet to be advanced today. Hep-Lock IV fluids.
[2016-08-30 11:09] LABS: Potassium 4.6 mmol/L (3.5-5.1); Total Bilirubin 0.5 mg/dL (0.2-1.3); Total Protein 4.5 g/dL (6.3-8.2)
--- NOTE | 2016-08-30 11:09 | P.PN ---
Subjective This is a 35-year-old male being evaluated and examined today in the intensive care unit. Patient came into the emergency room after refusing to go to his hemodialysis appointments on Monday and . The patient was complaining of hematemesis for the past few weeks. Patient was found to have a hemoglobin of 5.4 and was quite edematous. Patient was admitted to the intensive care unit and did receive 3 units of packed red blood cells. Patient has a past medical history of end-stage renal disease with dialysis on Tuesdays and Saturdays, diabetes mellitus type 1 uncontrolled, diabetic gastroparesis with nerve stimulator in place, chronic anemia, diabetic polyneuropathy, generalized anxiety disorder, bipolar disorder, seizure disorder, hypertension, hyperlipidemia, chronic pain syndrome, GERD, history of MRSA infection, and advanced cardiomyopathy with ejection fraction of 20%. Patient has consults on for nephrology as well as GI. Patient underwent an EGD which revealed carmen esophagitis as well as gastritis with no evidence of acute bleeding. Upon examination the patient is resting up in bed on room air. He is hemodynamically stable. He denies any cough or congestion or sputum production at this time. Objective - Vital Signs Vital signs: Vital Signs Temp 98.3 F 08/30/16 08:00 Pulse 68 08/30/16 08:00 Resp 18 08/30/16 08:00 BP 94/52 08/30/16 08:00 Pulse Ox 95 08/30/16 09:45 Intake & Output 08/29/16 08/30/16 08/30/16 18:59 06:59 18:59 Intake Total 400 1300 125 Output Total 1000 0 Balance -600 1300 125 Weight 57.4 kg 59 kg Intake: IV 400 100 Dextrose 5% in Water 1, 350 100 000 ml @ 50 mls/hr IV . Q20H MARY Rx#:[id number] Intake, IV Titration 150 Amount Sodium Chloride 0.9% 1, 150 000 ml @ 50 mls/hr IV . Q20H MARY Rx#:[id number] Oral 1050 125 Output: Urine 1000 0 Other: # Voids 0 - Exam GENERAL EXAM: Alert, cachectic, comfortable in no apparent distress. HEAD: Normocephalic. EYES: Normal reaction of pupils, equal size. NOSE: Clear with pink turbinates. THROAT: No erythema or exudates. NECK: No masses, no JVD. CHEST: No chest wall deformity. LUNGS: Equal air entry with no crackles, wheeze, rhonchi or dullness. Diminished CVS: S1 and S2 normal with no audible mumurs, regular rhythm. ABDOMEN: No hepatosplenomegaly, normal bowel sounds, no guarding or rigidity. EXTREMITIES: No edema noted, pedal pulses palpable. SKIN: No rashes CENTRAL NERVOUS SYSTEM: No focal deficits, tone is normal in all 4 extremities. - Labs CBC & Chem 7: 08/29/16 04:22 08/29/16 04:22 Labs: Abnormal Lab Results - Last 24 Hours (Table) 08/27/16 08/29/16 08/29/16 Range/Units 17:00 11:59 16:35 POC Glucose (mg/dL) 149 H 171 H (75-99) mg/dL Crossmatch See Detail 08/29/16 08/29/16 08/30/16 Range/Units 20:04 20:43 06:14 POC Glucose (mg/dL) 271 H 318 H 311 H (75-99) mg/dL Crossmatch Assessment and Plan Plan: Assessment Acute blood loss anemia Upper GI bleed Hypoglycemia End-stage renal disease on hemodialysis Tuesdays and Saturdays Chronic pain syndrome Hypotension, currently off dopamine Severe cardiomyopathy with chronic systolic heart failure, ejection fraction of 20% Chronic seizure disorders Generalized anxiety and panic attacks Chronic anemia due to chronic kidney disease History of Hypertension and hypertensive cardiovascular disease Diabetes mellitus type 1 uncontrolled Carmen esophagitis and gastritis Plan Medications have been reviewed and will be continued as ordered. EGD did show carmen esophagitis and gastritis. EGD pathology results pending. Continue to monitor hemoglobin and a signs of acute bleeding. Patient's diet has been advanced. Patient has a morphine for pain. Patient will be transfused 1 unit of blood if hemoglobin comes back less than 7. Nephrology, cardiology and GI also on consult. DVT and GI prophylaxis. We will continue to monitor labs/ results and adjust treatment as necessary. I performed an examination of the patient and discussed their management with the nurse practitioner. I have reviewed the nurse practitioner's note and agree with the documented findings and plan of care.
[2016-08-30 11:51] LABS: Glucose,Whole Blood 90 mg/dL (75-99)
--- NOTE | 2016-08-30 14:32 | P.PN ---
Subjective This is a 35-year-old male. He is a patient of Dr. Tobias Conway with past mental history of end-stage renal disease on hemodialysis Monday and Monday, diabetes mellitus type 1 uncontrolled, diabetic gastroparesis with nerve stimulator in place, chronic anemia, diabetic polyneuropathy, generalized anxiety disorder, bipolar disorder, seizure disorder, hypertension, hyperlipidemia, chronic pain syndrome, gastroesophageal reflux disease, history of MRSA infection, retinopathy, advanced cardiomyopathy with ejection fraction 20% followed by cardiology. Patient was seen in emergency room secondary to the fact that the patient has been refusing to go to hemodialysis, and he had missed hemodialysis on Monday and , and the patient was complaining of episode of hematemesis without hematochezia for the past few weeks, the patient was found to have a hemoglobin of 5.4, slightly elevated troponin of 0.7, and the patient was quite edematous, and the patient was admitted to the intensive care unit under the care of Dr. Payne, I received a call from the nursing staff in the ICU stating that patient needed to be admitted under your service since the patient was seen by us back in May 2016, subsequently I came and saw the patient along with the ICU nurse [place]. Patient already was seen and evaluated by Dr. Quintero from intensive care as well as nephrology Dr. Payne, and he scheduled to go for EGD with Dr. Bai hopefully forcing the morning for EGD. Patient did receive 3 units of packed red blood cells. 08/29: Patient remains in intensive care unit. He has been weaned off dopamine. He is scheduled for EGD today with Dr. Valerie Calvillo. He has continued on Aranesp and plan for hemodialysis tomorrow. Hemoglobin is 7.9. 08/30: Patient is now seen on the selective care unit. He is status post EGD and biopsy finding small sliding hiatal hernia and changes in the esophagus consistent with quoc esophagitis. Mild gastritis with no ulcers or active bleeding. Biopsies obtained from the antrum and esophagus. He has been started on liquid diet and Diflucan. Diet has been advanced. Blood sugars have been elevated and Levemir changed to 9 units twice daily. IV fluids to saline lock. He is scheduled for hemodialysis today with cold 2 L ultra filtration. Anticipate discharge in the next 1-2 days. Patient will be returning to [facility]. Objective - Vital Signs Vital signs: Vital Signs Temp 98.3 F 08/30/16 08:00 Pulse 68 08/30/16 08:00 Resp 18 08/30/16 08:00 BP 94/52 08/30/16 08:00 Pulse Ox 95 08/30/16 09:45 Intake & Output 08/29/16 08/30/16 08/30/16 18:59 06:59 18:59 Intake Total 400 1300 125 Output Total 1000 0 Balance -600 1300 125 Weight 57.4 kg 59 kg Intake: IV 400 100 Dextrose 5% in Water 1, 350 100 000 ml @ 50 mls/hr IV . Q20H MARY Rx#:[id number] Intake, IV Titration 150 Amount Sodium Chloride 0.9% 1, 150 000 ml @ 50 mls/hr IV . Q20H MARY Rx#:[id number] Oral 1050 125 Output: Urine 1000 0 Other: # Voids 0 - Exam General appearance: mild distress, thin - EENT Eyes: EOMI, PERRLA, no ptosis, no scleral icterus ENT: hearing grossly normal, NA/AT, no normal oropharynx Ears: bilateral: normal - Neck Neck: no lymphadenopathy, normal ROM, no rigidity, no stridor Carotids: bilateral: upstroke normal Thyroid: bilateral: normal size - Respiratory Respiratory: bilateral: diminished, negative: dullness, rales, rhonchi, wheezing , prolonged expiration, prolonged inspiration - Cardiovascular Rhythm: regular Heart sounds: normal: S1, S2 Abnormal Heart Sounds: systolic murmur, S3 Gallop - Gastrointestinal General gastrointestinal: normal bowel sounds, soft, no splenomegaly, tenderness (There is a gastric pacemaker.) - Integumentary Integumentary: ulcer (Side of the left big toe with this.) - Neurologic Neurologic: CNII-XII intact - Musculoskeletal Musculoskeletal: generalized weakness - Psychiatric Psychiatric: A&O x's 3, no appropriate affect, no intact judgment & insight - Labs CBC & Chem 7: 08/29/16 04:22 08/30/16 10:08 Labs: Abnormal Lab Results - Last 24 Hours (Table) 08/27/16 08/29/16 08/29/16 Range/Units 17:00 16:35 20:04 Sodium (137-145) mmol/L BUN (9-20) mg/dL Creatinine (0.66-1.25) mg/dL Glucose (74-99) mg/dL POC Glucose (mg/dL) 171 H 271 H (75-99) mg/dL Calcium (8.4-10.2) mg/dL Total Protein (6.3-8.2) g/dL Albumin (3.5-5.0) g/dL Crossmatch See Detail 08/29/16 08/30/16 08/30/16 Range/Units 20:43 06:14 10:08 Sodium 132 L (137-145) mmol/L BUN 102 H* (9-20) mg/dL Creatinine 4.57 H (0.66-1.25) mg/dL Glucose 142 H (74-99) mg/dL POC Glucose (mg/dL) 318 H 311 H (75-99) mg/dL Calcium 7.0 L (8.4-10.2) mg/dL Total Protein 4.5 L (6.3-8.2) g/dL Albumin 2.0 L (3.5-5.0) g/dL Crossmatch Assessment and Plan Plan: 1. Acute blood loss anemia and hypovolemic shock status post 3 units of packed red blood cell transfusion. His hemoglobin is stable. 2. Acute upper GI bleed possibly due to gastritis and Quoc esophagitis. Patient is currently on Diflucan. Continue Protonix. 3. Uncontrolled diabetes mellitus type 1. Levemir changed to 9 units twice daily. Continue Humalog scale. 4. End-stage renal disease on hemodialysis Monday, , Monday. Nephrology is following. 5. Chronic pain syndrome. He was morphine 2 mg IV push every 4 hours as needed. 6. Hypertension and hypertensive cardiovascular disease. Lisinopril resumed. 7. Diabetes mellitus type 1 uncontrolled presenting with hypoglycemia. 8. Severe cardiomyopathy and chronic systolic heart failure with ejection fraction 20% followed by Dr. Branch. Patient may require ICD device in the future. Lasix is currently on hold. 9. Chronic seizure disorder. Continue Keppra 500 mg twice daily. 10. Generalized anxiety and panic attack. Currently on Valium. 11. Chronic diabetic neuropathy. Stable. 12. Chronic anemia due to chronic kidney disease. Patient has been on Aranesp 60 g subcutaneously every Monday. 13. Gastrointestinal prophylaxis. Continue Protonix 40 mg IV push every 24 hours. 14. DVT prophylaxis. Bilateral knee-high REHANA hose. Discharge plan: Return to [facility] Impression and plan of care have been directed as dictated by the signing physician. Gretel Freitas nurse practitioner acting as scribe for signing physician.
[2016-08-30 14:43] LABS: Anisocytosis Slight; Basophils # (A) 0.1 k/uL (0-0.2); Basophils % (A) 1 %; CH 31.9; CHCM 33.4; Eosinophils # (A) 0.4 k/uL (0-0.7); Eosinophils % (A) 5 %; HCT 22.5 % (39.0-53.0); HDW 3.19; HGB 7.2 gm/dL (13.0-17.5); Luc # (Auto) 0.05; Luc % (Auto) 1; Lymphocytes % (A) 13 %; MCH 31.1 pg (25.0-35.0); MCHC 32.3 g/dL (31.0-37.0); MCV 96.2 fL (80.0-100.0); Macrocytosis Slight; Mean Platelet Volume 7.6; Monocytes # (A) 0.4 k/uL (0-1.0); Monocytes % (A) 5 %; Neutrophils # (A) 5.5 k/uL (1.3-7.7); Neutrophils % (A) 75 %; RBC 2.33 m/uL (4.30-5.90); RDW 17.5 % (11.5-15.5); WBC 7.4 k/uL (3.8-10.6); WBC (Perox) 7.94
[2016-08-30 16:48] LABS: Glucose,Whole Blood 82 mg/dL (75-99)
[2016-08-30] MEDS: SODIUM CHLORIDE 0.9% 1,000 ML IV SCH (17:20)
[2016-08-30] MEDS: SCOPOLAMINE 1.5MG/72HR PATCH TRANSDERM SCH (17:29)
[2016-08-30 18:08] LABS: Hepatitis B Surface Ag Index 0.05
[2016-08-30] MEDS ORDERED: GELATIN SPONGE,ABSORB (SMALL) 1 EACH SPONGE ONE (19:30)
[2016-08-30] MEDS ORDERED: INSULIN DETEMIR 100 UNIT/ML 10 ML VIAL SQ SCH (21:00)
[2016-08-30 21:02] LABS: Glucose,Whole Blood 109 mg/dL (75-99)
[2016-08-31] MEDS: MORPHINE SULFATE 2 MG/ML SYRINGE IV PRN ×9 (02:43→22:49)
[2016-08-31] MEDS: ONDANSETRON 4 MG/2 ML VIAL IVP PRN ×2 (04:53→17:39)
[2016-08-31 06:10] LABS: Glucose,Whole Blood 40 mg/dL (75-99)
[2016-08-31 06:27] LABS: Glucose,Whole Blood 54 mg/dL (75-99)
[2016-08-31 06:42] LABS: Glucose,Whole Blood 70 mg/dL (75-99)
[2016-08-31] MEDS: INSULIN LISPRO (humaLOG) 300 UNIT/3 ML VIAL SQ SCH ×4 (06:46→20:41)
[2016-08-31] MEDS: ERYTHROMYCIN 250 MG TAB PO SCH ×3 (06:54→20:51)
[2016-08-31] MEDS: DRONABINOL 2.5 MG CAP PO SCH ×3 (06:56→15:59)
[2016-08-31 07:01] LABS: Anisocytosis Slight; CH 31.5; CHCM 33.2; HCT 22.8 % (39.0-53.0); HDW 3.14; HGB 7.5 gm/dL (13.0-17.5); MCH 31.3 pg (25.0-35.0); MCHC 32.7 g/dL (31.0-37.0); MCV 95.8 fL (80.0-100.0); Macrocytosis Slight; RBC 2.38 m/uL (4.30-5.90); RDW 17.5 % (11.5-15.5); WBC 8.3 k/uL (3.8-10.6)
[2016-08-31 07:29] LABS: Calcium 7.5 mg/dL (8.4-10.2); Magnesium 2.4 mg/dL (1.6-2.3); Phosphorous 2.8 mg/dL (2.5-4.5); Total Bilirubin 0.5 mg/dL (0.2-1.3)
[2016-08-31] MEDS: PANTOPRAZOLE 40 MG/10 ML VIAL IVP SCH ×2 (08:29→20:51)
[2016-08-31] MEDS: FLUCONAZOLE 100 MG TAB PO SCH (08:30)
[2016-08-31] MEDS: levETIRAcetam 500 MG TAB PO SCH ×2 (08:30→20:52)
[2016-08-31] MEDS: SERTRALINE 50 MG TAB PO SCH (08:30)
[2016-08-31] MEDS: LISINOPRIL 20 MG TAB PO SCH ×2 (08:30→20:51)
[2016-08-31] MEDS ORDERED: INSULIN DETEMIR 100 UNIT/ML 10 ML VIAL SQ SCH (09:00)
--- NOTE | 2016-08-31 11:18 | P.PN ---
Subjective This is a 35-year-old male being evaluated and examined today in the intensive care unit. Patient came into the emergency room after refusing to go to his hemodialysis appointments on Monday and . The patient was complaining of hematemesis for the past few weeks. Patient was found to have a hemoglobin of 5.4 and was quite edematous. Patient was admitted to the intensive care unit and did receive 3 units of packed red blood cells. Patient has a past medical history of end-stage renal disease with dialysis on Tuesdays and Saturdays, diabetes mellitus type 1 uncontrolled, diabetic gastroparesis with nerve stimulator in place, chronic anemia, diabetic polyneuropathy, generalized anxiety disorder, bipolar disorder, seizure disorder, hypertension, hyperlipidemia, chronic pain syndrome, GERD, history of MRSA infection, and advanced cardiomyopathy with ejection fraction of 20%. Patient has consults on for nephrology as well as GI. Patient underwent an EGD which revealed carmen esophagitis as well as gastritis with no evidence of acute bleeding. Upon examination the patient is resting up in bed on room air. He is hemodynamically stable. He denies any cough or congestion or sputum production at this time. Patient states he has a good appetite and been going to bathroom without difficulty. Patient states he feels better today. Objective - Vital Signs Vital signs: Vital Signs Temp 98.1 F 08/31/16 08:00 Pulse 70 08/31/16 08:00 Resp 16 08/31/16 08:00 BP 124/62 08/31/16 08:00 Pulse Ox 99 08/31/16 08:00 Intake & Output 08/30/16 08/31/16 08/31/16 18:59 06:59 18:59 Intake Total 520 600 125 Output Total 0 350 Balance 520 250 125 Weight 60 kg Intake: Intake, IV Titration 20 Amount Sodium Chloride 0.9% 1, 20 000 ml @ 50 mls/hr IV . Q20H MARY Rx#:[id number] Oral 500 600 125 Output: Urine 0 350 Other: Voiding Method Urinal Urinal Incontinent Incontinent # Voids 0 - Exam GENERAL EXAM: Alert, cachectic, comfortable in no apparent distress. HEAD: Normocephalic. EYES: Normal reaction of pupils, equal size. NOSE: Clear with pink turbinates. THROAT: No erythema or exudates. NECK: No masses, no JVD. CHEST: No chest wall deformity. LUNGS: Equal air entry with no crackles, wheeze, rhonchi or dullness. Diminished CVS: S1 and S2 normal with no audible mumurs, regular rhythm. ABDOMEN: No hepatosplenomegaly, normal bowel sounds, no guarding or rigidity. EXTREMITIES: No edema noted, pedal pulses palpable. SKIN: No rashes CENTRAL NERVOUS SYSTEM: No focal deficits, tone is normal in all 4 extremities. - Labs CBC & Chem 7: 08/31/16 06:52 08/31/16 06:52 Labs: Abnormal Lab Results - Last 24 Hours (Table) 08/30/16 08/30/16 08/30/16 Range/Units 10:08 14:14 21:01 RBC 2.33 L (4.30-5.90) m/uL Hgb 7.2 L (13.0-17.5) gm/dL Hct 22.5 L (39.0-53.0) % RDW 17.5 H (11.5-15.5) % Sodium 132 L (137-145) mmol/L BUN 102 H* (9-20) mg/dL Creatinine 4.57 H (0.66-1.25) mg/dL Glucose 142 H (74-99) mg/dL POC Glucose (mg/dL) 109 H (75-99) mg/dL Calcium 7.0 L (8.4-10.2) mg/dL Magnesium (1.6-2.3) mg/dL AST (17-59) U/L Total Protein 4.5 L (6.3-8.2) g/dL Albumin 2.0 L (3.5-5.0) g/dL 08/31/16 08/31/16 08/31/16 Range/Units 06:09 06:26 06:40 RBC (4.30-5.90) m/uL Hgb (13.0-17.5) gm/dL Hct (39.0-53.0) % RDW (11.5-15.5) % Sodium (137-145) mmol/L BUN (9-20) mg/dL Creatinine (0.66-1.25) mg/dL Glucose (74-99) mg/dL POC Glucose (mg/dL) 40 L 54 L 70 L (75-99) mg/dL Calcium (8.4-10.2) mg/dL Magnesium (1.6-2.3) mg/dL AST (17-59) U/L Total Protein (6.3-8.2) g/dL Albumin (3.5-5.0) g/dL 08/31/16 08/31/16 Range/Units 06:52 06:52 RBC 2.38 L (4.30-5.90) m/uL Hgb 7.5 L (13.0-17.5) gm/dL Hct 22.8 L (39.0-53.0) % RDW 17.5 H (11.5-15.5) % Sodium 136 L (137-145) mmol/L BUN 56 H (9-20) mg/dL Creatinine 3.17 H (0.66-1.25) mg/dL Glucose 59 L (74-99) mg/dL POC Glucose (mg/dL) (75-99) mg/dL Calcium 7.5 L (8.4-10.2) mg/dL Magnesium 2.4 H (1.6-2.3) mg/dL AST 71 H (17-59) U/L Total Protein 5.0 L (6.3-8.2) g/dL Albumin 2.3 L (3.5-5.0) g/dL Assessment and Plan Plan: Assessment Acute blood loss anemia Upper GI bleed Hypoglycemia End-stage renal disease on hemodialysis Tuesdays and Saturdays Chronic pain syndrome Hypotension, currently off dopamine Severe cardiomyopathy with chronic systolic heart failure, ejection fraction of 20% Chronic seizure disorders Generalized anxiety and panic attacks Chronic anemia due to chronic kidney disease History of Hypertension and hypertensive cardiovascular disease Diabetes mellitus type 1 uncontrolled Carmen esophagitis and gastritis Plan Patient could be discharged in the near future from a pulmonary standpoint. Medications have been reviewed and will be continued as ordered. EGD did show carmen esophagitis and gastritis. EGD pathology results pending. Continue to monitor hemoglobin and a signs of acute bleeding. Patient's diet has been advanced and he is tolerating well. Patient has a morphine for pain. Nephrology, cardiology and GI also on consult. DVT and GI prophylaxis. Plan is for this patient to return to [facility]. We will continue to monitor labs/results and adjust treatment as necessary. I performed an examination of the patient and discussed their management with the nurse practitioner. I have reviewed the nurse practitioner's note and agree with the documented findings and plan of care.
[2016-08-31 12:41] LABS: Glucose,Whole Blood 119 mg/dL (75-99)
[2016-08-31] MEDS: SODIUM CHLORIDE 0.9% 1,000 ML IV SCH (12:48)
--- NOTE | 2016-08-31 14:54 | P.PN ---
Subjective This is a 35-year-old male. He is a patient of Dr. Tobias Conway with past mental history of end-stage renal disease on hemodialysis Monday and Monday, diabetes mellitus type 1 uncontrolled, diabetic gastroparesis with nerve stimulator in place, chronic anemia, diabetic polyneuropathy, generalized anxiety disorder, bipolar disorder, seizure disorder, hypertension, hyperlipidemia, chronic pain syndrome, gastroesophageal reflux disease, history of MRSA infection, retinopathy, advanced cardiomyopathy with ejection fraction 20% followed by cardiology. Patient was seen in emergency room secondary to the fact that the patient has been refusing to go to hemodialysis, and he had missed hemodialysis on Monday and , and the patient was complaining of episode of hematemesis without hematochezia for the past few weeks, the patient was found to have a hemoglobin of 5.4, slightly elevated troponin of 0.7, and the patient was quite edematous, and the patient was admitted to the intensive care unit under the care of Dr. Payne, I received a call from the nursing staff in the ICU stating that patient needed to be admitted under your service since the patient was seen by us back in May 2016, subsequently I came and saw the patient along with the ICU nurse Augusta. Patient already was seen and evaluated by Dr. Quintero from intensive care as well as nephrology Dr. Payne, and he scheduled to go for EGD with Dr. Bai hopefully forcing the morning for EGD. Patient did receive 3 units of packed red blood cells. 08/29: Patient remains in intensive care unit. He has been weaned off dopamine. He is scheduled for EGD today with Dr. Valerie Calvillo. He has continued on Aranesp and plan for hemodialysis tomorrow. Hemoglobin is 7.9. 08/30: Patient is now seen on the selective care unit. He is status post EGD and biopsy finding small sliding hiatal hernia and changes in the esophagus consistent with quoc esophagitis. Mild gastritis with no ulcers or active bleeding. Biopsies obtained from the antrum and esophagus. He has been started on liquid diet and Diflucan. Diet has been advanced. Blood sugars have been elevated and Levemir changed to 9 units twice daily. IV fluids to saline lock. He is scheduled for hemodialysis today with cold 2 L ultra filtration. Anticipate discharge in the next 1-2 days. Patient will be returning to [facility]. 08/31: Blood sugar this morning was 40 for which insulins will be changed to Levemir 8 units in the morning and 4 units in the evening. He is back on a regular diet. Anticipate discharge to the shelter in next 24 hours. Objective - Vital Signs Vital signs: Vital Signs Temp 98.1 F 08/31/16 08:00 Pulse 70 08/31/16 08:00 Resp 16 08/31/16 08:00 BP 124/62 08/31/16 08:00 Pulse Ox 99 08/31/16 08:00 Intake & Output 08/30/16 08/31/16 08/31/16 18:59 06:59 18:59 Intake Total 520 600 125 Output Total 0 350 Balance 520 250 125 Weight 60 kg Intake: Intake, IV Titration 20 Amount Sodium Chloride 0.9% 1, 20 000 ml @ 50 mls/hr IV . Q20H MARY Rx#:[id number] Oral 500 600 125 Output: Urine 0 350 Other: Voiding Method Urinal Urinal Incontinent Incontinent # Voids 0 - Exam General appearance: mild distress, thin - EENT Eyes: EOMI, PERRLA, no ptosis, no scleral icterus ENT: hearing grossly normal, NA/AT, no normal oropharynx Ears: bilateral: normal - Neck Neck: no lymphadenopathy, normal ROM, no rigidity, no stridor Carotids: bilateral: upstroke normal Thyroid: bilateral: normal size - Respiratory Respiratory: bilateral: diminished, negative: dullness, rales, rhonchi, wheezing , prolonged expiration, prolonged inspiration - Cardiovascular Rhythm: regular Heart sounds: normal: S1, S2 Abnormal Heart Sounds: systolic murmur, S3 Gallop - Gastrointestinal General gastrointestinal: normal bowel sounds, soft, no splenomegaly, tenderness (There is a gastric pacemaker.) - Integumentary Integumentary: ulcer (Side of the left big toe with this.) - Neurologic Neurologic: CNII-XII intact - Musculoskeletal Musculoskeletal: generalized weakness - Psychiatric Psychiatric: A&O x's 3, no appropriate affect, no intact judgment & insight - Labs CBC & Chem 7: 08/31/16 06:52 08/31/16 06:52 Labs: Abnormal Lab Results - Last 24 Hours (Table) 08/30/16 08/30/16 08/30/16 Range/Units 10:08 14:14 21:01 RBC 2.33 L (4.30-5.90) m/uL Hgb 7.2 L (13.0-17.5) gm/dL Hct 22.5 L (39.0-53.0) % RDW 17.5 H (11.5-15.5) % Sodium 132 L (137-145) mmol/L BUN 102 H* (9-20) mg/dL Creatinine 4.57 H (0.66-1.25) mg/dL Glucose 142 H (74-99) mg/dL POC Glucose (mg/dL) 109 H (75-99) mg/dL Calcium 7.0 L (8.4-10.2) mg/dL Magnesium (1.6-2.3) mg/dL AST (17-59) U/L Total Protein 4.5 L (6.3-8.2) g/dL Albumin 2.0 L (3.5-5.0) g/dL 08/31/16 08/31/16 08/31/16 Range/Units 06:09 06:26 06:40 RBC (4.30-5.90) m/uL Hgb (13.0-17.5) gm/dL Hct (39.0-53.0) % RDW (11.5-15.5) % Sodium (137-145) mmol/L BUN (9-20) mg/dL Creatinine (0.66-1.25) mg/dL Glucose (74-99) mg/dL POC Glucose (mg/dL) 40 L 54 L 70 L (75-99) mg/dL Calcium (8.4-10.2) mg/dL Magnesium (1.6-2.3) mg/dL AST (17-59) U/L Total Protein (6.3-8.2) g/dL Albumin (3.5-5.0) g/dL 08/31/16 08/31/16 Range/Units 06:52 06:52 RBC 2.38 L (4.30-5.90) m/uL Hgb 7.5 L (13.0-17.5) gm/dL Hct 22.8 L (39.0-53.0) % RDW 17.5 H (11.5-15.5) % Sodium 136 L (137-145) mmol/L BUN 56 H (9-20) mg/dL Creatinine 3.17 H (0.66-1.25) mg/dL Glucose 59 L (74-99) mg/dL POC Glucose (mg/dL) (75-99) mg/dL Calcium 7.5 L (8.4-10.2) mg/dL Magnesium 2.4 H (1.6-2.3) mg/dL AST 71 H (17-59) U/L Total Protein 5.0 L (6.3-8.2) g/dL Albumin 2.3 L (3.5-5.0) g/dL Assessment and Plan Plan: 1. Acute blood loss anemia and hypovolemic shock status post 3 units of packed red blood cell transfusion. His hemoglobin is stable. 2. Acute upper GI bleed possibly due to gastritis and Quoc esophagitis. Patient is currently on Diflucan. Continue Protonix. 3. Uncontrolled diabetes mellitus type 1. Levemir changed to 8 units in the morning and 4 units in the evening. Continue Humalog scale. 4. End-stage renal disease on hemodialysis Monday, , Monday. Nephrology is following. 5. Chronic pain syndrome. He was morphine 2 mg IV push every 4 hours as needed. 6. Hypertension and hypertensive cardiovascular disease. Lisinopril resumed. 7. Diabetes mellitus type 1 uncontrolled presenting with hypoglycemia. 8. Severe cardiomyopathy and chronic systolic heart failure with ejection fraction 20% followed by Dr. Branch. Patient may require ICD device in the future. Lasix is currently on hold. 9. Chronic seizure disorder. Continue Keppra 500 mg twice daily. 10. Generalized anxiety and panic attack. Currently on Valium. 11. Chronic diabetic neuropathy. Stable. 12. Chronic anemia due to chronic kidney disease. Patient has been on Aranesp 60 g subcutaneously every Monday. 13. Gastrointestinal prophylaxis. Continue Protonix 40 mg IV push every 24 hours. 14. DVT prophylaxis. Bilateral knee-high REHANA hose. Discharge plan: Return to [facility] Impression and plan of care have been directed as dictated by the signing physician. Gretel Freitas nurse practitioner acting as scribe for signing physician.
[2016-08-31 16:54] LABS: Glucose,Whole Blood 126 mg/dL (75-99)
[2016-08-31 20:45] LABS: Glucose,Whole Blood 166 mg/dL (75-99)
[2016-08-31] MEDS: INSULIN DETEMIR 100 UNIT/ML 10 ML VIAL SQ SCH (20:51)
[2016-09-01] MEDS: MORPHINE SULFATE 2 MG/ML SYRINGE IV PRN ×10 (01:01→22:08)
[2016-09-01 02:10] LABS: Glucose,Whole Blood 73 mg/dL (75-99)
[2016-09-01 02:54] LABS: Glucose,Whole Blood 91 mg/dL (75-99)
[2016-09-01] MEDS: ERYTHROMYCIN 250 MG TAB PO SCH ×3 (05:56→22:37)
[2016-09-01] MEDS: ONDANSETRON 4 MG/2 ML VIAL IVP PRN ×3 (06:05→22:07)
[2016-09-01 06:16] LABS: Glucose,Whole Blood 61 mg/dL (75-99)
[2016-09-01 06:44] LABS: Glucose,Whole Blood 72 mg/dL (75-99)
[2016-09-01] MEDS: LISINOPRIL 20 MG TAB PO SCH ×2 (07:44→22:13)
[2016-09-01 07:47] LABS: Glucose,Whole Blood 103 mg/dL (75-99)
[2016-09-01] MEDS: INSULIN LISPRO (humaLOG) 300 UNIT/3 ML VIAL SQ SCH ×4 (08:08→22:24)
[2016-09-01] MEDS: INSULIN DETEMIR 100 UNIT/ML 10 ML VIAL SQ SCH ×2 (08:09→22:36)
[2016-09-01] MEDS: levETIRAcetam 500 MG TAB PO SCH ×2 (08:14→22:13)
[2016-09-01] MEDS: FLUCONAZOLE 100 MG TAB PO SCH (08:14)
[2016-09-01] MEDS: DRONABINOL 2.5 MG CAP PO SCH ×3 (08:14→17:20)
[2016-09-01] MEDS: PANTOPRAZOLE 40 MG/10 ML VIAL IVP SCH ×2 (08:14→22:24)
[2016-09-01] MEDS: SERTRALINE 50 MG TAB PO SCH (08:14)
[2016-09-01 09:38] LABS: Anisocytosis Slight; CH 31.6; CHCM 33.8; HCT 21.3 % (39.0-53.0); HDW 3.12; HGB 7.4 gm/dL (13.0-17.5); MCH 32.5 pg (25.0-35.0); MCHC 34.6 g/dL (31.0-37.0); Mean Platelet Volume 8.7; RBC 2.27 m/uL (4.30-5.90); RDW 16.8 % (11.5-15.5); WBC 7.7 k/uL (3.8-10.6)
[2016-09-01 10:09] LABS: Calcium 7.1 mg/dL (8.4-10.2); Magnesium 2.5 mg/dL (1.6-2.3); Phosphorous 3.1 mg/dL (2.5-4.5); Potassium 4.9 mmol/L (3.5-5.1); Total Bilirubin 0.5 mg/dL (0.2-1.3); Total Protein 4.5 g/dL (6.3-8.2)
[2016-09-01 10:32] VITALS: BMI 17.9
--- NOTE | 2016-09-01 11:02 | P.PN ---
Subjective Patient is seen in follow-up for end-stage renal disease. He is maintained on hemodialysis on a Monday schedule via left upper extremity AV graft. Patient presented to the hospital with a hemoglobin of 5. He did receive multiple packed red blood cell transfusions. Hemoglobin 7.4 as of today. He underwent EGD which revealed carmen esophagitis as well as gastritis and no evidence of acute bleeding. He denies any melena or hematochezia. Denies hemoptysis. Hemodynamically stable. Tolerating oral intake. Vital signs are stable. General: The patient appeared well nourished and normally developed. HEENT: Head exam is unremarkable. Neck is without jugular venous distension. LUNGS: Lungs are clear to auscultation and percussion. Breath sounds decreased. HEART: Rate and Rhythm are regular. First and second heart sounds normal. No murmurs, rubs or gallops. ABDOMEN: Abdominal exam reveals normal bowel sounds. Non-tender and non- distended. No evidence of peritonitis. EXTREMITITES: No clubbing, cyanosis, or edema. Objective - Vital Signs Vital signs: Vital Signs Temp 97.5 F L 09/01/16 07:00 Pulse 61 09/01/16 07:00 Resp 20 09/01/16 07:00 BP 117/62 09/01/16 07:00 Pulse Ox 99 09/01/16 07:00 Intake & Output 08/31/16 09/01/16 09/01/16 18:59 06:59 18:59 Intake Total 530 518 Output Total 800 Balance -270 518 Weight 60 kg Intake: IV 0 Dextrose 5% in Water 1, 0 000 ml @ 50 mls/hr IV . Q20H MARY Rx#:[id number] Intake, IV Titration 30 Amount IV Fluid Continuation 1, 30 000 ml As IV .STK-MED ONE Rx#:[id number] Sodium Chloride 0.9% 1, 0 000 ml @ 50 mls/hr IV . Q20H MARY Rx#:[id number] Oral 500 518 Output: Urine 800 Other: Voiding Method Urinal Urinal Incontinent Incontinent # Voids 0 - Labs CBC & Chem 7: 09/01/16 08:07 09/01/16 08:07 Labs: Abnormal Lab Results - Last 24 Hours (Table) 08/31/16 08/31/16 08/31/16 Range/Units 12:30 16:38 20:40 RBC (4.30-5.90) m/uL Hgb (13.0-17.5) gm/dL Hct (39.0-53.0) % RDW (11.5-15.5) % Sodium (137-145) mmol/L BUN (9-20) mg/dL Creatinine (0.66-1.25) mg/dL POC Glucose (mg/dL) 119 H 126 H 166 H (75-99) mg/dL Calcium (8.4-10.2) mg/dL Magnesium (1.6-2.3) mg/dL AST (17-59) U/L ALT (21-72) U/L Total Protein (6.3-8.2) g/dL Albumin (3.5-5.0) g/dL 09/01/16 09/01/16 09/01/16 Range/Units 02:02 06:04 06:41 RBC (4.30-5.90) m/uL Hgb (13.0-17.5) gm/dL Hct (39.0-53.0) % RDW (11.5-15.5) % Sodium (137-145) mmol/L BUN (9-20) mg/dL Creatinine (0.66-1.25) mg/dL POC Glucose (mg/dL) 73 L 61 L 72 L (75-99) mg/dL Calcium (8.4-10.2) mg/dL Magnesium (1.6-2.3) mg/dL AST (17-59) U/L ALT (21-72) U/L Total Protein (6.3-8.2) g/dL Albumin (3.5-5.0) g/dL 09/01/16 09/01/16 09/01/16 Range/Units 07:44 08:07 08:07 RBC 2.27 L (4.30-5.90) m/uL Hgb 7.4 L (13.0-17.5) gm/dL Hct 21.3 L (39.0-53.0) % RDW 16.8 H (11.5-15.5) % Sodium 134 L (137-145) mmol/L BUN 65 H (9-20) mg/dL Creatinine 3.93 H (0.66-1.25) mg/dL POC Glucose (mg/dL) 103 H (75-99) mg/dL Calcium 7.1 L (8.4-10.2) mg/dL Magnesium 2.5 H (1.6-2.3) mg/dL AST 201 H (17-59) U/L ALT 95 H (21-72) U/L Total Protein 4.5 L (6.3-8.2) g/dL Albumin 2.0 L (3.5-5.0) g/dL Assessment and Plan Plan: Assessment: #1. End-stage renal disease maintained on hemodialysis on a Monday schedule via left upper extremity AV graft. #2. Acute anemia status post multiple blood transfusions. Hemoglobin 7.4 today. #3. Carmen esophagitis and gastritis. #4. Chronic kidney disease mineral bone disease. #5. Hypervolemic hyponatremia. Plan: Hemodialysis today with goal 2 liters ultrafiltration. Monitor hemoglobin closely. Maintain Aranesp. Hold antihypertensives for systolic blood pressure less than 120. Potential discharge back to [facility]CF soon.
--- NOTE | 2016-09-01 11:11 | P.PN ---
Subjective This is a 35-year-old male being evaluated and examined today in the intensive care unit. Patient came into the emergency room after refusing to go to his hemodialysis appointments on Monday and . The patient was complaining of hematemesis for the past few weeks. Patient was found to have a hemoglobin of 5.4 and was quite edematous. Patient was admitted to the intensive care unit and did receive 3 units of packed red blood cells. Patient has a past medical history of end-stage renal disease with dialysis on Tuesdays and Saturdays, diabetes mellitus type 1 uncontrolled, diabetic gastroparesis with nerve stimulator in place, chronic anemia, diabetic polyneuropathy, generalized anxiety disorder, bipolar disorder, seizure disorder, hypertension, hyperlipidemia, chronic pain syndrome, GERD, history of MRSA infection, and advanced cardiomyopathy with ejection fraction of 20%. Patient has consults on for nephrology as well as GI. Patient underwent an EGD which revealed carmen esophagitis as well as gastritis with no evidence of acute bleeding. Upon examination the patient is resting up in bed on room air. He is hemodynamically stable. He denies any cough or congestion or sputum production at this time. Patient states he has a good appetite and been going to bathroom without difficulty. Patient states he feels better today, patient is being set up to go back to [facility] in the near future.. Objective - Vital Signs Vital signs: Vital Signs Temp 97.5 F L 09/01/16 07:00 Pulse 61 09/01/16 07:00 Resp 20 09/01/16 07:00 BP 117/62 09/01/16 07:00 Pulse Ox 99 09/01/16 07:00 Intake & Output 08/31/16 09/01/16 09/01/16 18:59 06:59 18:59 Intake Total 530 518 Output Total 800 Balance -270 518 Weight 60 kg Intake: IV 0 Dextrose 5% in Water 1, 0 000 ml @ 50 mls/hr IV . Q20H MARY Rx#:[id number] Intake, IV Titration 30 Amount IV Fluid Continuation 1, 30 000 ml As IV .STK-MED ONE Rx#:[id number] Sodium Chloride 0.9% 1, 0 000 ml @ 50 mls/hr IV . Q20H MARY Rx#:[id number] Oral 500 518 Output: Urine 800 Other: Voiding Method Urinal Urinal Incontinent Incontinent # Voids 0 - Exam GENERAL EXAM: Alert, cachectic, comfortable in no apparent distress. HEAD: Normocephalic. EYES: Normal reaction of pupils, equal size. NOSE: Clear with pink turbinates. THROAT: No erythema or exudates. NECK: No masses, no JVD. CHEST: No chest wall deformity. LUNGS: Equal air entry with no crackles, wheeze, rhonchi or dullness. Diminished bases CVS: S1 and S2 normal with no audible mumurs, regular rhythm. ABDOMEN: No hepatosplenomegaly, normal bowel sounds, no guarding or rigidity. EXTREMITIES: No edema noted, pedal pulses palpable. SKIN: No rashes CENTRAL NERVOUS SYSTEM: No focal deficits, tone is normal in all 4 extremities. - Labs CBC & Chem 7: 09/01/16 08:07 09/01/16 08:07 Labs: Abnormal Lab Results - Last 24 Hours (Table) 08/31/16 08/31/16 08/31/16 Range/Units 12:30 16:38 20:40 RBC (4.30-5.90) m/uL Hgb (13.0-17.5) gm/dL Hct (39.0-53.0) % RDW (11.5-15.5) % Sodium (137-145) mmol/L BUN (9-20) mg/dL Creatinine (0.66-1.25) mg/dL POC Glucose (mg/dL) 119 H 126 H 166 H (75-99) mg/dL Calcium (8.4-10.2) mg/dL Magnesium (1.6-2.3) mg/dL AST (17-59) U/L ALT (21-72) U/L Total Protein (6.3-8.2) g/dL Albumin (3.5-5.0) g/dL 09/01/16 09/01/16 09/01/16 Range/Units 02:02 06:04 06:41 RBC (4.30-5.90) m/uL Hgb (13.0-17.5) gm/dL Hct (39.0-53.0) % RDW (11.5-15.5) % Sodium (137-145) mmol/L BUN (9-20) mg/dL Creatinine (0.66-1.25) mg/dL POC Glucose (mg/dL) 73 L 61 L 72 L (75-99) mg/dL Calcium (8.4-10.2) mg/dL Magnesium (1.6-2.3) mg/dL AST (17-59) U/L ALT (21-72) U/L Total Protein (6.3-8.2) g/dL Albumin (3.5-5.0) g/dL 09/01/16 09/01/16 09/01/16 Range/Units 07:44 08:07 08:07 RBC 2.27 L (4.30-5.90) m/uL Hgb 7.4 L (13.0-17.5) gm/dL Hct 21.3 L (39.0-53.0) % RDW 16.8 H (11.5-15.5) % Sodium 134 L (137-145) mmol/L BUN 65 H (9-20) mg/dL Creatinine 3.93 H (0.66-1.25) mg/dL POC Glucose (mg/dL) 103 H (75-99) mg/dL Calcium 7.1 L (8.4-10.2) mg/dL Magnesium 2.5 H (1.6-2.3) mg/dL AST 201 H (17-59) U/L ALT 95 H (21-72) U/L Total Protein 4.5 L (6.3-8.2) g/dL Albumin 2.0 L (3.5-5.0) g/dL Assessment and Plan Plan: Assessment Acute blood loss anemia Upper GI bleed Hypoglycemia End-stage renal disease on hemodialysis Tuesdays and Saturdays Chronic pain syndrome Hypotension, currently off dopamine Severe cardiomyopathy with chronic systolic heart failure, ejection fraction of 20% Chronic seizure disorders Generalized anxiety and panic attacks Chronic anemia due to chronic kidney disease History of Hypertension and hypertensive cardiovascular disease Diabetes mellitus type 1 uncontrolled Carmen esophagitis and gastritis Plan Patient could be discharged in the near future from a pulmonary standpoint, we will see this patient in the outpatient setting or on an as-needed basis. Medications have been reviewed and will be continued as ordered. EGD did show carmen esophagitis and gastritis. EGD pathology results pending. Continue to monitor hemoglobin and a signs of acute bleeding. Patient's diet has been advanced and he is tolerating well. Patient has a morphine for pain. Nephrology, cardiology and GI also on consult. DVT and GI prophylaxis. Plan is for this patient to return to [facility]. We will continue to monitor labs/results and adjust treatment as necessary. I performed an examination of the patient and discussed their management with the nurse practitioner. I have reviewed the nurse practitioner's note and agree with the documented findings and plan of care.
[2016-09-01 12:13] LABS: Glucose,Whole Blood 125 mg/dL (75-99)
--- NOTE | 2016-09-01 16:14 | P.PN ---
Subjective This is a 35-year-old male. He is a patient of Dr. Tobias Conway with past mental history of end-stage renal disease on hemodialysis Monday and Monday, diabetes mellitus type 1 uncontrolled, diabetic gastroparesis with nerve stimulator in place, chronic anemia, diabetic polyneuropathy, generalized anxiety disorder, bipolar disorder, seizure disorder, hypertension, hyperlipidemia, chronic pain syndrome, gastroesophageal reflux disease, history of MRSA infection, retinopathy, advanced cardiomyopathy with ejection fraction 20% followed by cardiology. Patient was seen in emergency room secondary to the fact that the patient has been refusing to go to hemodialysis, and he had missed hemodialysis on Monday and , and the patient was complaining of episode of hematemesis without hematochezia for the past few weeks, the patient was found to have a hemoglobin of 5.4, slightly elevated troponin of 0.7, and the patient was quite edematous, and the patient was admitted to the intensive care unit under the care of Dr. Payne, I received a call from the nursing staff in the ICU stating that patient needed to be admitted under your service since the patient was seen by us back in May 2016, subsequently I came and saw the patient along with the ICU nurse Augusta. Patient already was seen and evaluated by Dr. Quintero from intensive care as well as nephrology Dr. Payne, and he scheduled to go for EGD with Dr. Bai hopefully forcing the morning for EGD. Patient did receive 3 units of packed red blood cells. 08/29: Patient remains in intensive care unit. He has been weaned off dopamine. He is scheduled for EGD today with Dr. Valerie Calvillo. He has continued on Aranesp and plan for hemodialysis tomorrow. Hemoglobin is 7.9. 08/30: Patient is now seen on the selective care unit. He is status post EGD and biopsy finding small sliding hiatal hernia and changes in the esophagus consistent with quoc esophagitis. Mild gastritis with no ulcers or active bleeding. Biopsies obtained from the antrum and esophagus. He has been started on liquid diet and Diflucan. Diet has been advanced. Blood sugars have been elevated and Levemir changed to 9 units twice daily. IV fluids to saline lock. He is scheduled for hemodialysis today with cold 2 L ultra filtration. Anticipate discharge in the next 1-2 days. Patient will be returning to [facility]. 08/31: Blood sugar this morning was 40 for which insulins will be changed to Levemir 8 units in the morning and 4 units in the evening. He is back on a regular diet. [facility] 09/01: Patient is feeling a bit nauseated today he ate more than 50% of his lunch , he had an episode of vomiting, his getting his hemodialysis right now, he denies any chest pain, shortness breath, he is extremely weak, the plan is to transfer him back to [facility] hopefully the next 24 hours. Objective - Vital Signs Vital signs: Vital Signs Temp 98.2 F 09/01/16 15:00 Pulse 62 09/01/16 15:00 Resp 20 09/01/16 15:00 BP 124/60 09/01/16 15:00 Pulse Ox 99 09/01/16 15:00 Intake & Output 08/31/16 09/01/16 09/01/16 18:59 06:59 18:59 Intake Total 530 518 Output Total 800 Balance -270 518 Weight 60 kg Intake: IV 0 Dextrose 5% in Water 1, 0 000 ml @ 50 mls/hr IV . Q20H [facility] Rx#:[id number] Intake, IV Titration 30 Amount IV Fluid Continuation 1, 30 000 ml As IV .[facility] Rx#:[id number] Sodium Chloride 0.9% 1, 0 000 ml @ 50 mls/hr IV . Q20H [facility] Rx#:[id number] Oral 500 518 Output: Urine 800 Other: Voiding Method Urinal Urinal Incontinent Incontinent # Voids 0 0 - Exam - Exam General appearance: mild distress, thin - EENT Eyes: EOMI, PERRLA, no ptosis, no scleral icterus ENT: hearing grossly normal, NA/AT, no normal oropharynx Ears: bilateral: normal - Neck Neck: no lymphadenopathy, normal ROM, no rigidity, no stridor Carotids: bilateral: upstroke normal Thyroid: bilateral: normal size - Respiratory Respiratory: bilateral: diminished, negative: dullness, rales, rhonchi, wheezing , prolonged expiration, prolonged inspiration - Cardiovascular Rhythm: regular Heart sounds: normal: S1, S2 Abnormal Heart Sounds: systolic murmur, S3 Gallop - Gastrointestinal General gastrointestinal: normal bowel sounds, soft, no splenomegaly, tenderness (There is a gastric pacemaker.) - Integumentary Integumentary: ulcer (Side of the left big toe with this.) - Neurologic Neurologic: CNII-XII intact - Musculoskeletal Musculoskeletal: generalized weakness - Psychiatric Psychiatric: A&O x's 3, no appropriate affect, no intact judgment & insight - Labs CBC & Chem 7: 09/01/16 08:07 09/01/16 08:07 Labs: Abnormal Lab Results - Last 24 Hours (Table) 08/31/16 08/31/16 09/01/16 Range/Units 16:38 20:40 02:02 RBC (4.30-5.90) m/uL Hgb (13.0-17.5) gm/dL Hct (39.0-53.0) % RDW (11.5-15.5) % Sodium (137-145) mmol/L BUN (9-20) mg/dL Creatinine (0.66-1.25) mg/dL POC Glucose (mg/dL) 126 H 166 H 73 L (75-99) mg/dL Calcium (8.4-10.2) mg/dL Magnesium (1.6-2.3) mg/dL AST (17-59) U/L ALT (21-72) U/L Total Protein (6.3-8.2) g/dL Albumin (3.5-5.0) g/dL 09/01/16 09/01/16 09/01/16 Range/Units 06:04 06:41 07:44 RBC (4.30-5.90) m/uL Hgb (13.0-17.5) gm/dL Hct (39.0-53.0) % RDW (11.5-15.5) % Sodium (137-145) mmol/L BUN (9-20) mg/dL Creatinine (0.66-1.25) mg/dL POC Glucose (mg/dL) 61 L 72 L 103 H (75-99) mg/dL Calcium (8.4-10.2) mg/dL Magnesium (1.6-2.3) mg/dL AST (17-59) U/L ALT (21-72) U/L Total Protein (6.3-8.2) g/dL Albumin (3.5-5.0) g/dL 09/01/16 09/01/16 09/01/16 Range/Units 08:07 08:07 12:11 RBC 2.27 L (4.30-5.90) m/uL Hgb 7.4 L (13.0-17.5) gm/dL Hct 21.3 L (39.0-53.0) % RDW 16.8 H (11.5-15.5) % Sodium 134 L (137-145) mmol/L BUN 65 H (9-20) mg/dL Creatinine 3.93 H (0.66-1.25) mg/dL POC Glucose (mg/dL) 125 H (75-99) mg/dL Calcium 7.1 L (8.4-10.2) mg/dL Magnesium 2.5 H (1.6-2.3) mg/dL AST 201 H (17-59) U/L ALT 95 H (21-72) U/L Total Protein 4.5 L (6.3-8.2) g/dL Albumin 2.0 L (3.5-5.0) g/dL Assessment and Plan Plan: Assessment and Plan Plan: 1. Acute blood loss anemia and hypovolemic shock status post 3 units of packed red blood cell transfusion. His hemoglobin is stable. 2. Acute upper GI bleed possibly due to gastritis and Quoc esophagitis. Patient is currently on Diflucan. Continue Protonix. 3. Uncontrolled diabetes mellitus type 1. Levemir changed to 8 units in the morning and 4 units in the evening. Continue Humalog scale. 4. End-stage renal disease on hemodialysis Monday, , Monday. Nephrology is following. 5. Chronic pain syndrome. He was morphine 2 mg IV push every 4 hours as needed. 6. Hypertension and hypertensive cardiovascular disease. Lisinopril resumed. 7. Diabetes mellitus type 1 uncontrolled presenting with hypoglycemia. 8. Severe cardiomyopathy and chronic systolic heart failure with ejection fraction 20% followed by Dr. Branch. Patient may require ICD device in the future. Lasix is currently on hold. 9. Chronic seizure disorder. Continue Keppra 500 mg twice daily. 10. Generalized anxiety and panic attack. Currently on Valium. 11. Chronic diabetic neuropathy. Stable. 12. Chronic anemia due to chronic kidney disease. Patient has been on Aranesp 60 g subcutaneously every Monday. 13. Gastrointestinal prophylaxis. Continue Protonix 40 mg IV push every 24 hours. 14. DVT prophylaxis. Bilateral knee-high REHANA hose. Discharge plan: Return to [facility] in AM.
[2016-09-01 17:50] LABS: Glucose,Whole Blood 240 mg/dL (75-99)
[2016-09-01 21:12] LABS: Glucose,Whole Blood 265 mg/dL (75-99)
[2016-09-02] MEDS: MORPHINE SULFATE 2 MG/ML SYRINGE IV PRN ×11 (00:08→22:38)
[2016-09-02 02:55] LABS: Glucose,Whole Blood 168 mg/dL (75-99)
[2016-09-02] MEDS: ERYTHROMYCIN 250 MG TAB PO SCH ×3 (06:38→20:37)
[2016-09-02 07:32] LABS: Glucose,Whole Blood 86 mg/dL (75-99)
[2016-09-02] MEDS: INSULIN LISPRO (humaLOG) 300 UNIT/3 ML VIAL SQ SCH ×5 (07:55→21:16)
[2016-09-02] MEDS: levETIRAcetam 500 MG TAB PO SCH ×2 (08:41→20:36)
[2016-09-02] MEDS: LISINOPRIL 20 MG TAB PO SCH ×2 (08:41→20:37)
[2016-09-02] MEDS: DRONABINOL 2.5 MG CAP PO SCH ×3 (08:41→17:20)
[2016-09-02] MEDS: SERTRALINE 50 MG TAB PO SCH (08:42)
[2016-09-02] MEDS: PANTOPRAZOLE 40 MG/10 ML VIAL IVP SCH ×2 (08:42→20:37)
[2016-09-02] MEDS: FLUCONAZOLE 100 MG TAB PO SCH (08:42)
[2016-09-02] MEDS: ONDANSETRON 4 MG/2 ML VIAL IVP PRN (08:46)
[2016-09-02 09:44] LABS: Anisocytosis Slight; CH 32.2; HCT 20.9 % (39.0-53.0); HDW 3.26; HGB 7.4 gm/dL (13.0-17.5); MCH 32.6 pg (25.0-35.0); MCHC 35.3 g/dL (31.0-37.0); MCV 92.4 fL (80.0-100.0); Mean Platelet Volume 7.9; RBC 2.26 m/uL (4.30-5.90); RDW 16.7 % (11.5-15.5); WBC 8.1 k/uL (3.8-10.6)
[2016-09-02 09:56] LABS: Calcium 7.4 mg/dL (8.4-10.2); Magnesium 2.3 mg/dL (1.6-2.3); Phosphorous 2.3 mg/dL (2.5-4.5); Potassium 4.5 mmol/L (3.5-5.1); Total Bilirubin 0.5 mg/dL (0.2-1.3); Total Protein 4.6 g/dL (6.3-8.2)
[2016-09-02] MEDS: INSULIN DETEMIR 100 UNIT/ML 10 ML VIAL SQ SCH ×2 (10:37→21:16)
--- NOTE | 2016-09-02 11:52 | P.PN ---
Subjective This is a 35-year-old male being evaluated and examined today in the intensive care unit. Patient came into the emergency room after refusing to go to his hemodialysis appointments on Monday and . The patient was complaining of hematemesis for the past few weeks. Patient was found to have a hemoglobin of 5.4 and was quite edematous. Patient was admitted to the intensive care unit and did receive 3 units of packed red blood cells. Patient has a past medical history of end-stage renal disease with dialysis on Tuesdays and Saturdays, diabetes mellitus type 1 uncontrolled, diabetic gastroparesis with nerve stimulator in place, chronic anemia, diabetic polyneuropathy, generalized anxiety disorder, bipolar disorder, seizure disorder, hypertension, hyperlipidemia, chronic pain syndrome, GERD, history of MRSA infection, and advanced cardiomyopathy with ejection fraction of 20%. Patient has consults on for nephrology as well as GI. Patient underwent an EGD which revealed carmen esophagitis as well as gastritis with no evidence of acute bleeding. Upon examination the patient is resting up in bed on room air. He is hemodynamically stable. He denies any cough or congestion or sputum production at this time. Patient states that he has a marginal appetite. Objective - Vital Signs Vital signs: Vital Signs Temp 98.3 F 09/02/16 07:00 Pulse 71 09/02/16 07:00 Resp 18 09/02/16 07:00 BP 139/66 09/02/16 07:00 Pulse Ox 100 09/02/16 07:00 Intake & Output 09/01/16 09/02/16 09/02/16 18:59 06:59 18:59 Intake Total 1000 Output Total 300 Balance 700 Weight 60 kg Intake: Oral 1000 Output: Urine 300 Other: Voiding Method Urinal Urinal Urinal Incontinent Incontinent Incontinent # Voids 0 0 # Bowel Movements 0 - Exam GENERAL EXAM: Alert, cachectic, comfortable in no apparent distress. HEAD: Normocephalic. EYES: Normal reaction of pupils, equal size. NOSE: Clear with pink turbinates. THROAT: No erythema or exudates. NECK: No masses, no JVD. CHEST: No chest wall deformity. LUNGS: Equal air entry with no crackles, wheeze, rhonchi or dullness. Diminished bases CVS: S1 and S2 normal with no audible mumurs, regular rhythm. ABDOMEN: No hepatosplenomegaly, normal bowel sounds, no guarding or rigidity. EXTREMITIES: No edema noted, pedal pulses palpable. SKIN: No rashes CENTRAL NERVOUS SYSTEM: No focal deficits, tone is normal in all 4 extremities. - Labs CBC & Chem 7: 09/02/16 09:08 09/02/16 09:08 Labs: Abnormal Lab Results - Last 24 Hours (Table) 09/01/16 09/01/16 09/01/16 Range/Units 12:11 17:48 21:09 RBC (4.30-5.90) m/uL Hgb (13.0-17.5) gm/dL Hct (39.0-53.0) % RDW (11.5-15.5) % Sodium (137-145) mmol/L BUN (9-20) mg/dL Creatinine (0.66-1.25) mg/dL Glucose (74-99) mg/dL POC Glucose (mg/dL) 125 H 240 H 265 H (75-99) mg/dL Calcium (8.4-10.2) mg/dL Phosphorus (2.5-4.5) mg/dL AST (17-59) U/L Total Protein (6.3-8.2) g/dL Albumin (3.5-5.0) g/dL 09/02/16 09/02/16 09/02/16 Range/Units 02:52 09:08 09:08 RBC 2.26 L (4.30-5.90) m/uL Hgb 7.4 L (13.0-17.5) gm/dL Hct 20.9 L (39.0-53.0) % RDW 16.7 H (11.5-15.5) % Sodium 135 L (137-145) mmol/L BUN 38 H (9-20) mg/dL Creatinine 3.00 H (0.66-1.25) mg/dL Glucose 53 L (74-99) mg/dL POC Glucose (mg/dL) 168 H (75-99) mg/dL Calcium 7.4 L (8.4-10.2) mg/dL Phosphorus 2.3 L (2.5-4.5) mg/dL AST 69 H (17-59) U/L Total Protein 4.6 L (6.3-8.2) g/dL Albumin 2.1 L (3.5-5.0) g/dL Assessment and Plan Plan: Assessment Acute blood loss anemia Upper GI bleed Hypoglycemia End-stage renal disease on hemodialysis Tuesdays and Saturdays Chronic pain syndrome Hypotension, currently off dopamine Severe cardiomyopathy with chronic systolic heart failure, ejection fraction of 20% Chronic seizure disorders Generalized anxiety and panic attacks Chronic anemia due to chronic kidney disease History of Hypertension and hypertensive cardiovascular disease Diabetes mellitus type 1 uncontrolled Carmen esophagitis and gastritis Plan Pulmonology to sign off this patient please don't hesitate to call with any questions or if patient's respiratory status changes. Patient could be discharged in the near future from a pulmonary standpoint, we will see this patient in the outpatient setting or on an as-needed basis. Medications have been reviewed and will be continued as ordered. EGD did show carmen esophagitis and gastritis. EGD pathology results pending. Continue to monitor hemoglobin and a signs of acute bleeding. Patient has a morphine for pain. Nephrology, cardiology and GI also on consult. DVT and GI prophylaxis. Plan is for this patient to return to [facility]. We will continue to monitor labs/results and adjust treatment as necessary. I performed an examination of the patient and discussed their management with the nurse practitioner. I have reviewed the nurse practitioner's note and agree with the documented findings and plan of care.
[2016-09-02 12:27] LABS: Glucose,Whole Blood 57 mg/dL (75-99)
[2016-09-02 12:41] LABS: Glucose,Whole Blood 51 mg/dL (75-99)
[2016-09-02] MEDS ORDERED: DEXTROSE 50%-WATER 50 ML SYRINGE IVP ONE (12:41)
[2016-09-02 13:10] LABS: Glucose,Whole Blood 130 mg/dL (75-99)
[2016-09-02 15:15] LABS: Hepatitis B Surface Antibody POSITIVE (Negative)
--- NOTE | 2016-09-02 15:33 | P.PN ---
Subjective This is a 35-year-old male. He is a patient of Dr. Tobias Conway with past mental history of end-stage renal disease on hemodialysis Monday and Monday, diabetes mellitus type 1 uncontrolled, diabetic gastroparesis with nerve stimulator in place, chronic anemia, diabetic polyneuropathy, generalized anxiety disorder, bipolar disorder, seizure disorder, hypertension, hyperlipidemia, chronic pain syndrome, gastroesophageal reflux disease, history of MRSA infection, retinopathy, advanced cardiomyopathy with ejection fraction 20% followed by cardiology. Patient was seen in emergency room secondary to the fact that the patient has been refusing to go to hemodialysis, and he had missed hemodialysis on Monday and , and the patient was complaining of episode of hematemesis without hematochezia for the past few weeks, the patient was found to have a hemoglobin of 5.4, slightly elevated troponin of 0.7, and the patient was quite edematous, and the patient was admitted to the intensive care unit under the care of Dr. Payne, I received a call from the nursing staff in the ICU stating that patient needed to be admitted under your service since the patient was seen by us back in May 2016, subsequently I came and saw the patient along with the ICU nurse Augusta. Patient already was seen and evaluated by Dr. Quintero from intensive care as well as nephrology Dr. Payne, and he scheduled to go for EGD with Dr. Bai hopefully forcing the morning for EGD. Patient did receive 3 units of packed red blood cells. 08/29: Patient remains in intensive care unit. He has been weaned off dopamine. He is scheduled for EGD today with Dr. Valerie Calvillo. He has continued on Aranesp and plan for hemodialysis tomorrow. Hemoglobin is 7.9. 08/30: Patient is now seen on the selective care unit. He is status post EGD and biopsy finding small sliding hiatal hernia and changes in the esophagus consistent with quoc esophagitis. Mild gastritis with no ulcers or active bleeding. Biopsies obtained from the antrum and esophagus. He has been started on liquid diet and Diflucan. Diet has been advanced. Blood sugars have been elevated and Levemir changed to 9 units twice daily. IV fluids to saline lock. He is scheduled for hemodialysis today with cold 2 L ultra filtration. Anticipate discharge in the next 1-2 days. Patient will be returning to [facility]. 08/31: Blood sugar this morning was 40 for which insulins will be changed to Levemir 8 units in the morning and 4 units in the evening. He is back on a regular diet. Anticipate discharge to the [facility] in next 24 hours. 09/01: Patient is feeling a bit nauseated today he ate more than 50% of his lunch , he had an episode of vomiting, his getting his hemodialysis right now, he denies any chest pain, shortness breath, he is extremely weak, the plan is to transfer him back to [facility] hopefully the next 24 hours. 09/02; patient is complaining of not having any appetite. Patient is already on Marinol 3 times daily. Blood sugar again has been low and he did refuse insulin this morning for blood sugar of 86. Levemir will be decreased to 4 units in the morning and 2 units in the evening. Patient will be discharged to [facility] on Monday. Objective - Vital Signs Vital signs: Vital Signs Temp 98.3 F 09/02/16 07:00 Pulse 71 09/02/16 07:00 Resp 18 09/02/16 07:00 BP 139/66 09/02/16 07:00 Pulse Ox 100 09/02/16 07:00 Intake & Output 09/01/16 09/02/16 09/02/16 18:59 06:59 18:59 Intake Total 1000 Output Total 300 Balance 700 Weight 60 kg Intake: Oral 1000 Output: Urine 300 Other: Voiding Method Urinal Urinal Urinal Incontinent Incontinent Incontinent # Voids 0 0 # Bowel Movements 0 - Exam General appearance: mild distress, thin - EENT Eyes: EOMI, PERRLA, no ptosis, no scleral icterus ENT: hearing grossly normal, NA/AT, no normal oropharynx Ears: bilateral: normal - Neck Neck: no lymphadenopathy, normal ROM, no rigidity, no stridor Carotids: bilateral: upstroke normal Thyroid: bilateral: normal size - Respiratory Respiratory: bilateral: diminished, negative: dullness, rales, rhonchi, wheezing , prolonged expiration, prolonged inspiration - Cardiovascular Rhythm: regular Heart sounds: normal: S1, S2 Abnormal Heart Sounds: systolic murmur, S3 Gallop - Gastrointestinal General gastrointestinal: normal bowel sounds, soft, no splenomegaly, tenderness (There is a gastric pacemaker.) - Integumentary Integumentary: ulcer (Side of the left big toe with this.) - Neurologic Neurologic: CNII-XII intact - Musculoskeletal Musculoskeletal: generalized weakness - Psychiatric Psychiatric: A&O x's 3, no appropriate affect, no intact judgment & insight - Labs CBC & Chem 7: 09/02/16 09:08 09/02/16 09:08 Labs: Abnormal Lab Results - Last 24 Hours (Table) 09/01/16 09/01/16 09/01/16 Range/Units 12:11 17:48 21:09 RBC (4.30-5.90) m/uL Hgb (13.0-17.5) gm/dL Hct (39.0-53.0) % RDW (11.5-15.5) % Sodium (137-145) mmol/L BUN (9-20) mg/dL Creatinine (0.66-1.25) mg/dL Glucose (74-99) mg/dL POC Glucose (mg/dL) 125 H 240 H 265 H (75-99) mg/dL Calcium (8.4-10.2) mg/dL Phosphorus (2.5-4.5) mg/dL AST (17-59) U/L Total Protein (6.3-8.2) g/dL Albumin (3.5-5.0) g/dL 09/02/16 09/02/16 09/02/16 Range/Units 02:52 09:08 09:08 RBC 2.26 L (4.30-5.90) m/uL Hgb 7.4 L (13.0-17.5) gm/dL Hct 20.9 L (39.0-53.0) % RDW 16.7 H (11.5-15.5) % Sodium 135 L (137-145) mmol/L BUN 38 H (9-20) mg/dL Creatinine 3.00 H (0.66-1.25) mg/dL Glucose 53 L (74-99) mg/dL POC Glucose (mg/dL) 168 H (75-99) mg/dL Calcium 7.4 L (8.4-10.2) mg/dL Phosphorus 2.3 L (2.5-4.5) mg/dL AST 69 H (17-59) U/L Total Protein 4.6 L (6.3-8.2) g/dL Albumin 2.1 L (3.5-5.0) g/dL Assessment and Plan Plan: 1. Acute blood loss anemia and hypovolemic shock status post 3 units of packed red blood cell transfusion. His hemoglobin is stable. 2. Acute upper GI bleed possibly due to gastritis and Quoc esophagitis. Patient is currently on Diflucan. Continue Protonix. 3. Uncontrolled diabetes mellitus type 1. Levemir changed to 4 units in the morning and 2 units in the evening. Continue Humalog scale. 4. End-stage renal disease on hemodialysis Monday, , Monday. Nephrology is following. 5. Chronic pain syndrome. He was morphine 2 mg IV push every 4 hours as needed. 6. Hypertension and hypertensive cardiovascular disease. Lisinopril resumed. 7. Diabetes mellitus type 1 uncontrolled presenting with hypoglycemia. 8. Severe cardiomyopathy and chronic systolic heart failure with ejection fraction 20% followed by Dr. Branch. Patient may require ICD device in the future. Lasix is currently on hold. 9. Chronic seizure disorder. Continue Keppra 500 mg twice daily. 10. Generalized anxiety and panic attack. Currently on Valium. 11. Chronic diabetic neuropathy. Stable. 12. Chronic anemia due to chronic kidney disease. Patient has been on Aranesp 60 g subcutaneously every Monday. 13. Gastrointestinal prophylaxis. Continue Protonix 40 mg IV push every 24 hours. 14. DVT prophylaxis. Bilateral knee-high REHANA hose. Discharge plan: Return to [facility] on Monday Impression and plan of care have been directed as dictated by the signing physician. Gretel Freitas nurse practitioner acting as scribe for signing physician.
[2016-09-02] MEDS: SCOPOLAMINE 1.5MG/72HR PATCH TRANSDERM SCH (17:20)
[2016-09-02 17:36] LABS: Glucose,Whole Blood 157 mg/dL (75-99)
[2016-09-02 21:05] LABS: Glucose,Whole Blood 332 mg/dL (75-99)
[2016-09-03] MEDS: MORPHINE SULFATE 2 MG/ML SYRINGE IV PRN ×9 (00:57→20:20)
[2016-09-03] MEDS: ERYTHROMYCIN 250 MG TAB PO SCH ×3 (06:48→21:25)
[2016-09-03 07:33] LABS: Glucose,Whole Blood 225 mg/dL (75-99)
[2016-09-03] MEDS: INSULIN LISPRO (humaLOG) 300 UNIT/3 ML VIAL SQ SCH ×4 (08:11→21:25)
[2016-09-03] MEDS: LISINOPRIL 20 MG TAB PO SCH ×2 (08:11→21:25)
[2016-09-03] MEDS: PANTOPRAZOLE 40 MG/10 ML VIAL IVP SCH ×2 (08:11→21:25)
[2016-09-03] MEDS: levETIRAcetam 500 MG TAB PO SCH ×2 (08:11→21:24)
[2016-09-03] MEDS: DRONABINOL 2.5 MG CAP PO SCH ×3 (08:11→17:11)
[2016-09-03] MEDS: SERTRALINE 50 MG TAB PO SCH (08:11)
[2016-09-03] MEDS: FLUCONAZOLE 100 MG TAB PO SCH (08:11)
[2016-09-03] MEDS: INSULIN DETEMIR 100 UNIT/ML 10 ML VIAL SQ SCH ×2 (08:12→21:25)
--- NOTE | 2016-09-03 10:43 | P.PN ---
Subjective Patient is seen in follow-up for end-stage renal disease. He is maintained on hemodialysis on a Monday schedule via left upper extremity AV graft. Patient presented to the hospital with a hemoglobin of 5. He did receive multiple packed red blood cell transfusions. Hemoglobin 7.4 as of yesterday. He underwent EGD which revealed carmen esophagitis as well as gastritis and no evidence of acute bleeding. He denies any melena or hematochezia. Denies hemoptysis. Hemodynamically stable. Tolerating oral intake. Vital signs are stable. General: The patient appeared well nourished and normally developed. HEENT: Head exam is unremarkable. Neck is without jugular venous distension. LUNGS: Lungs are clear to auscultation and percussion. Breath sounds decreased. HEART: Rate and Rhythm are regular. First and second heart sounds normal. No murmurs, rubs or gallops. ABDOMEN: Abdominal exam reveals normal bowel sounds. Non-tender and non- distended. No evidence of peritonitis. EXTREMITITES: No clubbing, cyanosis, or edema. Objective - Vital Signs Vital signs: Vital Signs Temp 97.7 F 09/03/16 07:00 Pulse 59 L 09/03/16 07:00 Resp 16 09/03/16 07:00 BP 141/65 09/03/16 07:00 Pulse Ox 99 09/03/16 07:00 Intake & Output 09/02/16 09/03/16 09/03/16 18:59 06:59 18:59 Intake Total 400 Balance 400 Intake: Oral 400 Other: Voiding Method Urinal Urinal Incontinent Incontinent # Voids 1 0 # Bowel Movements 0 0 - Labs CBC & Chem 7: 09/02/16 09:08 09/02/16 09:08 Labs: Abnormal Lab Results - Last 24 Hours (Table) 09/02/16 09/02/16 09/02/16 Range/Units 12:25 12:39 13:09 POC Glucose (mg/dL) 57 L 51 L 130 H (75-99) mg/dL 09/02/16 09/02/16 09/03/16 Range/Units 17:22 20:51 07:32 POC Glucose (mg/dL) 157 H 332 H 225 H (75-99) mg/dL Assessment and Plan Plan: Assessment: #1. End-stage renal disease maintained on hemodialysis on a Monday schedule via left upper extremity AV graft. #2. Acute anemia status post multiple blood transfusions. Hemoglobin 7.4 as of yesterday. #3. Carmen esophagitis and gastritis. #4. Chronic kidney disease mineral bone disease. #5. Hypervolemic hyponatremia. Plan: Currently undergoing hemodialysis with goal 2 liters ultrafiltration. Monitor hemoglobin closely. Maintain Aranesp. Hold antihypertensives for systolic blood pressure less than 120. Potential discharge back to [facility] soon.
[2016-09-03 10:55] LABS: Anisocytosis Slight; CH 31.7; HCT 22.1 % (39.0-53.0); HDW 3.05; HGB 7.2 gm/dL (13.0-17.5); MCH 31.5 pg (25.0-35.0); MCHC 32.6 g/dL (31.0-37.0); MCV 96.7 fL (80.0-100.0); Macrocytosis Slight; Mean Platelet Volume 7.9; RBC 2.29 m/uL (4.30-5.90); RDW 16.4 % (11.5-15.5); WBC 6.2 k/uL (3.8-10.6)
[2016-09-03 11:29] LABS: Calcium 7.1 mg/dL (8.4-10.2); Potassium 3.5 mmol/L (3.5-5.1)
[2016-09-03] MEDS ORDERED: GELATIN SPONGE,ABSORB (SMALL) 1 EACH SPONGE ONE (12:15)
[2016-09-03] MEDS: DEXTROSE 50%-WATER 50 ML SYRINGE IVP STA (12:28)
[2016-09-03 12:49] LABS: Glucose,Whole Blood 103 mg/dL (75-99)
[2016-09-03 12:49] LABS: Glucose,Whole Blood 61 mg/dL (75-99)
[2016-09-03] MEDS: ONDANSETRON 4 MG/2 ML VIAL IVP PRN ×2 (13:28→20:22)
[2016-09-03] MEDS ORDERED: DEXTROSE 50%-WATER 50 ML SYRINGE IVP ONE (17:08)
[2016-09-03 17:23] LABS: Glucose,Whole Blood 40 mg/dL (75-99)
[2016-09-03 17:31] LABS: Glucose,Whole Blood 85 mg/dL (75-99)
--- NOTE | 2016-09-03 17:55 | PN ---
HISTORY OF PRESENT ILLNESS: This is a 35-year-old male patient who presented to the emergency department originally with intractable nausea and vomiting and refusal to go to hemodialysis. The patient stated at that time he had several episodes of hematemesis. On admission, he was found to be severely anemic and he received 3 units of packed red blood cells. The patient underwent EGD with Dr. Calvillo which did not reveal any active bleeding. The patient did well and was transferred to the medical unit. He is currently receiving hemodialysis. He is seen lying in bed. He is in no acute distress. His pain is under good control. His appetite is still poor, but his nausea has improved. PHYSICAL EXAMINATION: VITAL SIGNS: Temperature is 97.7, heart rate 59, respiratory rate is 16, blood pressure 141/65, pulse oximetry is 99% on room air. GENERAL: The patient is seen lying in bed in no acute distress. LUNGS: Clear to auscultation. No wheeze, rales or rhonchi appreciated. HEART: Regular rate and rhythm. No murmur. ABDOMEN: Soft. Gastric stimulator is palpable. Bowel sounds are positive. EXTREMITIES: No lower extremity edema is noted. Left upper arm with AV fistula with positive bruit and thrill. Pedal pulses are palpable. No lower extremity edema. NEURO: Patient is alert and oriented x3. LABS: WBC count 6.2, hemoglobin is 7.2, platelet count is 189. ASSESSMENT: 1. Acute blood loss anemia with hypovolemic shock status post 3 units packed red blood cells. Hemoglobin is stable at 7.2. No evidence of active bleeding. 2. Acute upper gastrointestinal bleed, possibly due to gastritis and Carmen esophagitis. The patient is currently on Diflucan. Continue Protonix. 3. Uncontrolled diabetes mellitus type 1. Continue with current regimen. His blood sugars have been under good control. Continue Humalog scale. 4. End-stage renal disease on hemodialysis Monday, and Monday. The patient is receiving hemodialysis treatment at this time. Nephrology is following. 5. Chronic pain syndrome. Continue with pain regimen. 6. Hypertension and hypertensive cardiovascular disease. Continue lisinopril. 7. Diabetes type 1, uncontrolled, presenting with hypoglycemia. Continue current insulin regimen, Accu-Cheks a.c. and at bedtime. 8. Severe cardiomyopathy with chronic systolic heart failure with ejection fraction of 20%. The patient follows as an outpatient with Dr. Branch. He may require implantable cardioverter-defibrillator in the future. 9. Chronic seizure disorder. Continue Keppra. 10. Generalized anxiety and panic disorder. Continue Valium. 11. Chronic diabetic neuropathy, stable. 12. Chronic anemia secondary to chronic kidney disease. The patient is on Aranesp. 13. Gastrointestinal prophylaxis with Protonix. 14. Deep venous thrombosis prophylaxis with bilateral [id number] thromboembolic device hose. DISCHARGE PLAN: Return to [facility] on Monday. I performed a history and physical examination of this patient and discussed the same with the dictator. I agree with the dictator's note. Any additional findings/opinions, etc. will be noted.
[2016-09-03 20:58] LABS: Glucose,Whole Blood 72 mg/dL (75-99)
[2016-09-04 00:39] LABS: Glucose,Whole Blood 72 mg/dL (75-99)
[2016-09-04] MEDS: MORPHINE SULFATE 2 MG/ML SYRINGE IV PRN ×8 (00:39→22:45)
[2016-09-04 02:11] LABS: Glucose,Whole Blood 74 mg/dL (75-99)
[2016-09-04] MEDS: ONDANSETRON 4 MG/2 ML VIAL IVP PRN ×2 (05:23→15:28)
[2016-09-04] MEDS: ERYTHROMYCIN 250 MG TAB PO SCH ×3 (06:46→21:34)
[2016-09-04 07:36] LABS: Glucose,Whole Blood 120 mg/dL (75-99)
[2016-09-04] MEDS: INSULIN LISPRO (humaLOG) 300 UNIT/3 ML VIAL SQ SCH ×4 (07:38→21:34)
[2016-09-04] MEDS: INSULIN DETEMIR 100 UNIT/ML 10 ML VIAL SQ SCH ×2 (07:38→21:34)
[2016-09-04] MEDS: LISINOPRIL 20 MG TAB PO SCH ×2 (08:07→21:34)
[2016-09-04] MEDS: SERTRALINE 50 MG TAB PO SCH (08:07)
[2016-09-04] MEDS: PANTOPRAZOLE 40 MG TABLET PO SCH ×2 (08:07→21:34)
[2016-09-04] MEDS: FLUCONAZOLE 100 MG TAB PO SCH (08:08)
[2016-09-04] MEDS: levETIRAcetam 500 MG TAB PO SCH ×2 (08:08→21:34)
[2016-09-04] MEDS: DRONABINOL 2.5 MG CAP PO SCH ×3 (08:08→17:44)
[2016-09-04 10:19] LABS: Anisocytosis Slight; Basophils # (A) 0.1 k/uL (0-0.2); Basophils % (A) 1 %; CH 31.3; CHCM 32.7; Eosinophils # (A) 0.3 k/uL (0-0.7); Eosinophils % (A) 3 %; HCT 23.8 % (39.0-53.0); HDW 3.06; HGB 7.7 gm/dL (13.0-17.5); Luc # (Auto) 0.14; Luc % (Auto) 2; Lymphocytes # (A) 1.1 k/uL (1.0-4.8); Lymphocytes % (A) 14 %; MCH 31.2 pg (25.0-35.0); MCHC 32.4 g/dL (31.0-37.0); MCV 96.4 fL (80.0-100.0); Mean Platelet Volume 7.6; Monocytes # (A) 0.4 k/uL (0-1.0); Monocytes % (A) 5 %; Neutrophils % (A) 75 %; RBC 2.47 m/uL (4.30-5.90); RDW 16.3 % (11.5-15.5)
[2016-09-04 10:27] LABS: Calcium 7.4 mg/dL (8.4-10.2); Potassium 4.3 mmol/L (3.5-5.1)
[2016-09-04 12:15] LABS: Glucose,Whole Blood 172 mg/dL (75-99)
--- NOTE | 2016-09-04 13:40 | PN ---
Delia Ashby [facility] dictating for Dr. Daphne Hamm. HISTORY OF PRESENT ILLNESS: This 35-year-old male patient presented to the emergency department with intractable nausea and vomiting and hypoglycemia. The patient also refused to go to hemodialysis. He had several episodes of hematemesis and was found to be severely anemic on admission and has received a blood transfusion. He also underwent EGD with Dr. Calvillo, which did not show any active bleeding. His hemoglobin remained stable. He has not had any further episodes of bleeding. The patient states he still has ongoing abdominal pain as well as nausea secondary to his severe gastroparesis. He is hemodynamically stable, in no acute distress. PHYSICAL EXAMINATION: VITAL SIGNS: Temperature is 98.4, heart rate 58, respiratory rate 16, blood pressure 149/67, pulse oximetry 99% on room air. GENERAL: The patient is seen lying in bed in no acute distress. LUNGS: Clear to auscultation. No wheeze, rales, rhonchi appreciated. HEART: Regular rate and rhythm. No murmur. ABDOMEN: Soft, gastric stimulator is palpable. Bowel sounds are positive. EXTREMITIES: No lower extremity edema was noted. Left upper arm AV fistula with positive bruit and thrill. Pedal pulses are palpable. No lower extremity edema is noted. NEURO: The patient is sleepy, but arousable, oriented x3. LABS: Sodium is 134, potassium 4.3, BUN is 31, creatinine 3.03. WBC count is 8.0, hemoglobin 7.7, platelet count is 231. ASSESSMENT: 1. Acute blood loss anemia with hypovolemic shock status post 3 units packed red blood cells. Hemoglobin remains stable at 7.7. No evidence of active bleeding. 2. Upper gastrointestinal bleed, possibly due to gastritis and quoc esophagitis. The patient is currently on Diflucan. Continue with PPI. 3. Uncontrolled diabetes mellitus type 1. Continue with current regimen. His blood sugars have been under good control. Continue Humalog scale. 4. End-stage renal disease on hemodialysis TTS. Nephrology is following. 5. Chronic pain syndrome. Continue pain regimen. 6. Hypertension and hypertensive cardiovascular disease. Continue lisinopril. 7. Diabetes type 1, uncontrolled presenting with hypoglycemia. Continue insulin regimen, Accu-Cheks a.c. and at bedtime with sliding scale coverage. 8. Severe cardiomyopathy with chronic systolic heart failure with ejection fraction of 20%. The patient follows as an outpatient with Dr. Branch. He may require an AICD in the future. 9. Chronic seizure disorder. Continue Keppra. 10. Generalized anxiety and panic disorder. Continue Valium. 11. Chronic diabetic neuropathy, stable. 12. Chronic anemia secondary to chronic kidney disease. Continue with Aranesp. 13. Severe gastroparesis. Continue with antiemetics and PPI. The patient also has a gastric stimulator. 14. Gastrointestinal prophylaxis with Protonix. 15. Deep venous thrombosis prophylaxis with bilateral below the knee REHANA hose. 16. Discharge plan: Return to [facility] on Monday.
[2016-09-04 17:04] LABS: Glucose,Whole Blood 188 mg/dL (75-99)
[2016-09-04 21:32] LABS: Glucose,Whole Blood 190 mg/dL (75-99)
[2016-09-05] MEDS: MORPHINE SULFATE 2 MG/ML SYRINGE IV PRN ×7 (01:33→15:18)
[2016-09-05 03:13] LABS: Glucose,Whole Blood 334 mg/dL (75-99)
[2016-09-05] MEDS: ERYTHROMYCIN 250 MG TAB PO SCH ×2 (06:46→14:51)
[2016-09-05 07:45] LABS: Glucose,Whole Blood 292 mg/dL (75-99)
[2016-09-05] MEDS: LISINOPRIL 20 MG TAB PO SCH (07:47)
[2016-09-05] MEDS: levETIRAcetam 500 MG TAB PO SCH (07:47)
[2016-09-05] MEDS: PANTOPRAZOLE 40 MG TABLET PO SCH (07:47)
[2016-09-05] MEDS: DRONABINOL 2.5 MG CAP PO SCH ×3 (07:47→17:53)
[2016-09-05] MEDS: INSULIN LISPRO (humaLOG) 300 UNIT/3 ML VIAL SQ SCH ×3 (07:47→17:53)
[2016-09-05] MEDS: INSULIN DETEMIR 100 UNIT/ML 10 ML VIAL SQ SCH (07:48)
[2016-09-05] MEDS: FLUCONAZOLE 100 MG TAB PO SCH (07:48)
[2016-09-05] MEDS: SERTRALINE 50 MG TAB PO SCH (07:48)
[2016-09-05 09:26] LABS: Anisocytosis Slight; CH 31.5; CHCM 32.1; HCT 22.1 % (39.0-53.0); HDW 3.12; MCH 30.1 pg (25.0-35.0); MCHC 30.4 g/dL (31.0-37.0); MCV 98.9 fL (80.0-100.0); Macrocytosis Slight; Mean Platelet Volume 7.5; RBC 2.23 m/uL (4.30-5.90); RDW 16.2 % (11.5-15.5); WBC 7.1 k/uL (3.8-10.6)
[2016-09-05 09:37] LABS: HGB 6.7 gm/dL (13.0-17.5)
[2016-09-05] MEDS: ONDANSETRON 4 MG/2 ML VIAL IVP PRN ×2 (09:48)
--- NOTE | 2016-09-05 10:28 | P.PN ---
Subjective Patient is seen in follow-up for end-stage renal disease. He is maintained on hemodialysis on a Monday schedule via left upper extremity AV graft. Patient presented to the hospital with a hemoglobin of 5. He did receive multiple packed red blood cell transfusions. Hemoglobin 6.7 this morning. He underwent EGD which revealed carmen esophagitis as well as gastritis and no evidence of acute bleeding. He denies any melena or hematochezia. Denies hemoptysis. Hemodynamically stable. Tolerating oral intake. Vital signs are stable. General: The patient appeared well nourished and normally developed. HEENT: Head exam is unremarkable. Neck is without jugular venous distension. LUNGS: Lungs are clear to auscultation and percussion. Breath sounds decreased. HEART: Rate and Rhythm are regular. First and second heart sounds normal. No murmurs, rubs or gallops. ABDOMEN: Abdominal exam reveals normal bowel sounds. Non-tender and non- distended. No evidence of peritonitis. EXTREMITITES: No clubbing, cyanosis, or edema. Objective - Vital Signs Vital signs: Vital Signs Temp 96.6 F L 09/05/16 07:00 Pulse 53 L 09/05/16 07:00 Resp 16 09/05/16 07:00 BP 141/65 09/05/16 07:00 Pulse Ox 100 09/05/16 07:00 Intake & Output 09/04/16 09/05/16 09/05/16 18:59 06:59 18:59 Intake Total 0 Balance 0 Intake: IV 0 Dextrose 5% in Water 1, 0 000 ml @ 50 mls/hr IV . Q20H [facility] Rx#:[id number] Other: # Voids 0 - Labs CBC & Chem 7: 09/05/16 08:30 09/05/16 08:30 Labs: Abnormal Lab Results - Last 24 Hours (Table) 09/04/16 09/04/16 09/04/16 Range/Units 09:52 12:13 16:59 RBC (4.30-5.90) m/uL Hgb (13.0-17.5) gm/dL Hct (39.0-53.0) % MCHC (31.0-37.0) g/dL RDW (11.5-15.5) % Sodium 134 L (137-145) mmol/L BUN 31 H (9-20) mg/dL Creatinine 3.03 H (0.66-1.25) mg/dL Glucose 147 H (74-99) mg/dL POC Glucose (mg/dL) 172 H 188 H (75-99) mg/dL Calcium 7.4 L (8.4-10.2) mg/dL 09/04/16 09/05/16 09/05/16 Range/Units 21:05 02:55 07:43 RBC (4.30-5.90) m/uL Hgb (13.0-17.5) gm/dL Hct (39.0-53.0) % MCHC (31.0-37.0) g/dL RDW (11.5-15.5) % Sodium (137-145) mmol/L BUN (9-20) mg/dL Creatinine (0.66-1.25) mg/dL Glucose (74-99) mg/dL POC Glucose (mg/dL) 190 H 334 H 292 H (75-99) mg/dL Calcium (8.4-10.2) mg/dL 09/05/16 09/05/16 Range/Units 08:30 08:30 RBC 2.23 L (4.30-5.90) m/uL Hgb 6.7 L* (13.0-17.5) gm/dL Hct 22.1 L (39.0-53.0) % MCHC 30.4 L (31.0-37.0) g/dL RDW 16.2 H (11.5-15.5) % Sodium 131 L (137-145) mmol/L BUN 42 H (9-20) mg/dL Creatinine 3.58 H (0.66-1.25) mg/dL Glucose 250 H (74-99) mg/dL POC Glucose (mg/dL) (75-99) mg/dL Calcium 7.0 L (8.4-10.2) mg/dL Assessment and Plan Plan: Assessment: #1. End-stage renal disease maintained on hemodialysis on a Monday schedule via left upper extremity AV graft. #2. Acute anemia status post multiple blood transfusions. Hemoglobin 6.7 this morning. #3. Carmen esophagitis and gastritis. #4. Chronic kidney disease mineral bone disease. #5. Hypervolemic hyponatremia. Plan: Transfuse 1 unit of packed red blood cell today. Hemodialysis tomorrow with goal 2 liters ultrafiltration. Monitor hemoglobin closely. Maintain Aranesp. Hold antihypertensives for systolic blood pressure less than 120. Potential discharge back to [facility] soon.
[2016-09-05 11:31] LABS: Glucose,Whole Blood 170 mg/dL (75-99)
--- NOTE | 2016-09-05 12:18 | P.DS ---
Providers Date of admission: 08/27/16 17:47 Expected date of discharge: 09/05/16 Attending physician: Jeff Pelayo Consults: 08/27/16 17:42 Consult Physician Routine Consulting Provider: Linnea Figueroa Consult Reason/Comments: Elevated troponin Do you want consulting provider notified?: Already Contacted Consult Physician Routine Consulting Provider: Lizz Payne Consult Reason/Comments: Acute on chronic renal failure Do you want consulting provider notified?: Already Contacted 08/27/16 18:30 Consult Physician Routine Consulting Provider: Javier Quintero Consult Reason/Comments: ICU pt Do you want consulting provider notified?: Already Contacted Primary care physician: Stated None Hospital Course: This is a 35-year-old male. He is a patient of Dr. Tobias Conway with past mental history of end-stage renal disease on hemodialysis Monday and Monday, diabetes mellitus type 1 uncontrolled, diabetic gastroparesis with nerve stimulator in place, chronic anemia, diabetic polyneuropathy, generalized anxiety disorder, bipolar disorder, seizure disorder, hypertension, hyperlipidemia, chronic pain syndrome, gastroesophageal reflux disease, history of MRSA infection, retinopathy, advanced cardiomyopathy with ejection fraction 20% followed by cardiology. Patient was seen in emergency room secondary to the fact that the patient has been refusing to go to hemodialysis, and he had missed hemodialysis on Monday and , and the patient was complaining of episode of hematemesis without hematochezia for the past few weeks, the patient was found to have a hemoglobin of 5.4, slightly elevated troponin of 0.7, and the patient was quite edematous, and the patient was admitted to the intensive care unit under the care of Dr. Payne, I received a call from the nursing staff in the ICU stating that patient needed to be admitted under your service since the patient was seen by us back in May 2016, subsequently I came and saw the patient along with the ICU nurse Augusta. Patient already was seen and evaluated by Dr. Quintero from intensive care as well as nephrology Dr. Payne, and he scheduled to go for EGD with Dr. Bai hopefully forcing the morning for EGD. Patient did receive 3 units of packed red blood cells. 08/29: Patient remains in intensive care unit. He has been weaned off dopamine. He is scheduled for EGD today with Dr. Valerie Calvillo. He has continued on Aranesp and plan for hemodialysis tomorrow. Hemoglobin is 7.9. 08/30: Patient is now seen on the selective care unit. He is status post EGD and biopsy finding small sliding hiatal hernia and changes in the esophagus consistent with quoc esophagitis. Mild gastritis with no ulcers or active bleeding. Biopsies obtained from the antrum and esophagus. He has been started on liquid diet and Diflucan. Diet has been advanced. Blood sugars have been elevated and Levemir changed to 9 units twice daily. IV fluids to saline lock. He is scheduled for hemodialysis today with cold 2 L ultra filtration. Anticipate discharge in the next 1-2 days. Patient will be returning to [facility]. 08/31: Blood sugar this morning was 40 for which insulins will be changed to Levemir 8 units in the morning and 4 units in the evening. He is back on a regular diet. Anticipate discharge to the half-way in next 24 hours. 09/01: Patient is feeling a bit nauseated today he ate more than 50% of his lunch , he had an episode of vomiting, his getting his hemodialysis right now, he denies any chest pain, shortness breath, he is extremely weak, the plan is to transfer him back to [facility] hopefully the next 24 hours. 09/02; patient is complaining of not having any appetite. Patient is already on Marinol 3 times daily. Blood sugar again has been low and he did refuse insulin this morning for blood sugar of 86. Levemir will be decreased to 4 units in the morning and 2 units in the evening. Patient will be discharged to [facility] on Monday. 09/05: Over the weekend, pulmonary medicine signed off the case with plan to see as needed. Patient to continue to be followed by nephrology. This morning his hemoglobin is 6.7 and one unit of packed RBCs has been ordered. Patient will be resuming his normal hemodialysis days of Monday, , Monday. Patient will be discharged back to [facility] today in stable condition. Discharge Diagnoses: 1. Acute blood loss anemia and hypovolemic shock status post 4 units of packed red blood cell transfusion. 2. Acute upper GI bleed possibly due to gastritis and Quoc esophagitis. 3. Uncontrolled diabetes mellitus type 1. 4. End-stage renal disease on hemodialysis Monday, , Monday. 5. Chronic pain syndrome. 6. Hypertension and hypertensive cardiovascular disease. 7. Diabetes mellitus type 1 uncontrolled presenting with hypoglycemia. 8. Severe cardiomyopathy and chronic systolic heart failure with ejection fraction 20% followed by Dr. Branch. Patient may require ICD device in the future. 9. Chronic seizure disorder. 10. Generalized anxiety and panic attack. 11. Chronic diabetic neuropathy. Stable. 12. Chronic anemia due to chronic kidney disease. Discharge plan: Return to [facility] on Monday Impression and plan of care have been directed as dictated by the signing physician. Gretel Freitas nurse practitioner acting as scribe for signing physician. Patient Condition at Discharge: Good Plan - Discharge Summary New Discharge Prescriptions: Diazepam [Valium] 2 mg PO Q8H PRN #90 PRN Reason: Anxiety Dronabinol 5 mg PO AC-TID #90 MORPHINE ORAL SOLN 20mg/mL [Roxanol Oral Soln Conc 20MG/ML] 10 mg PO Q6H PRN # 30 PRN Reason: Breakthrough Pain Morphine Sulfate [Morphine Sulfate ER] 30 mg PO BID@799,1999 #60 Discharge Medication List levETIRAcetam [Keppra] 500 mg PO BID@799,199905/25/16 [History] Darbepoetin Brodie [Aranesp] 60 mcg SQ 08/27/16 [History] Folic Acid-Vit B Complex-Vit C [Nephrocaps] 1 cap PO DAILY 08/27/16 [History] Furosemide [Lasix] 80 mg PO BID@0600,1400 08/27/16 [History] Lactulose 10 gm PO DAILY PRN 08/27/16 [History] Lisinopril [Zestril] 20 mg PO BID@0800,199908/27/16 [History] Melatonin 3 mg PO HS PRN 08/27/16 [History] Ondansetron [Zofran ODT] 8 mg PO Q8HR PRN 08/27/16 [History] Scopolamine 1.5MG/72Hr Patch [TransDerm Scop] 1 patch TRANSDERM Q72H 08/27/16 [ History] Sertraline [Zoloft] 50 mg PO DAILY 08/27/16 [History] Diazepam [Valium] 2 mg PO Q8H PRN #90 09/05/16 [Rx] Dronabinol 5 mg PO AC-TID #90 09/05/16 [Rx] Fluconazole [Diflucan] 100 mg PO DAILY #10 tab 09/05/16 [Rx] INSULIN LISPRO (humaLOG) [humaLOG (formulary)] 0 unit SQ ACHS vial 09/05/16 [Rx ] Insulin Degludec [Tresiba Flextouch U-100] 6 unit SQ DAILY #0 09/05/16 [Rx] MORPHINE ORAL SOLN 20mg/mL [Roxanol Oral Soln Conc 20MG/ML] 10 mg PO Q6H PRN # 30 09/05/16 [Rx] Morphine Sulfate [Morphine Sulfate ER] 30 mg PO BID@0800,2000 #60 09/05/16 [Rx] Pantoprazole Sodium [Protonix] 40 mg PO BID #0 09/05/16 [Rx] Follow up Appointment(s)/Referral(s): Jovanni Cortez MD [STAFF PHYSICIAN] - [facility] [NON-STAFF] - 1 Week Nonstaff,Physician [REFERRING] - 1-2 days Javier Quintero MD [STAFF PHYSICIAN] - 1 Week Shahid Anand DO [STAFF PHYSICIAN] - 1 Week Discharge Disposition: TRANSFER TO SNF/ECF
[2016-09-05 15:34] VITALS: BP 144/68; PULSE 55; RESP 14; TEMP 98.8
== END 2016-09-05 18:00 | DRG 377 ==
LOC: EC 13:52 → 6ICU 17:47 → 6SEL 08-29 22:03 → 4MS4W 08-31 23:10
PROVIDERS: ADMIT Internal Medicine Nephrology; ATTEND Internal Medicine
PROC: 5A1D00Z (ICD-10-PCS; principal; 2016-08-27)
PROC: 0DB68ZX Excision of Stomach, Via Natural or Artificial Opening Endoscopic, Diagnostic (ICD-10-PCS; 2016-08-29)
PROC: 0DB58ZX Excision of Esophagus, Via Natural or Artificial Opening Endoscopic, Diagnostic (ICD-10-PCS; 2016-08-29)
PROC: 30233N1 Transfusion of Nonautologous Red Blood Cells into Peripheral Vein, Percutaneous Approach (ICD-10-PCS; 2016-09-05)
DX: K29.71 Gastritis, unspecified, with bleeding (principal); I50.23 Acute on chronic systolic (congestive) heart failure; R57.1 Hypovolemic shock; N17.9 Acute kidney failure, unspecified; B37.81 Candidal esophagitis; I24.8 Other forms of acute ischemic heart disease; E10.22 Type 1 diabetes mellitus with diabetic chronic kidney disease; N18.6 End stage renal disease; I13.2 Hypertensive heart and chronic kidney disease with heart failure and with stage 5 chronic kidney disease, or end stage renal disease; D62 Acute posthemorrhagic anemia; E87.1 Hypo-osmolality and hyponatremia; K31.84 Gastroparesis; E10.43 Type 1 diabetes mellitus with diabetic autonomic (poly)neuropathy; E10.649 Type 1 diabetes mellitus with hypoglycemia without coma; E10.319 Type 1 diabetes mellitus with unspecified diabetic retinopathy without macular edema; D63.1 Anemia in chronic kidney disease; E10.65 Type 1 diabetes mellitus with hyperglycemia; E78.5 Hyperlipidemia, unspecified; F17.200 Nicotine dependence, unspecified, uncomplicated; F31.9 Bipolar disorder, unspecified; F41.0 Panic disorder [episodic paroxysmal anxiety]; F41.1 Generalized anxiety disorder; G40.909 Epilepsy, unspecified, not intractable, without status epilepticus; G89.4 Chronic pain syndrome; I25.10 Atherosclerotic heart disease of native coronary artery without angina pectoris; J45.909 Unspecified asthma, uncomplicated; K21.0 Gastro-esophageal reflux disease with esophagitis; K44.9 Diaphragmatic hernia without obstruction or gangrene; Z79.4 Long term (current) use of insulin; Z79.899 Other long term (current) drug therapy; Z82.49 Family history of ischemic heart disease and other diseases of the circulatory system; Z86.14 Personal history of Methicillin resistant Staphylococcus aureus infection; Z88.2 Allergy status to sulfonamides; Z91.19 Patient's noncompliance with other medical treatment and regimen; Z99.2 Dependence on renal dialysis
CPT/HCPCS: 36415; 36430; 43239; 71020; 80048; 80053; 80074; 82075; 82272; 83605; 83690; 83735; 83880; 84100; 84484; 85025; 85027; 85610; 86704; 86706; 86850; 86900; 86901; 86920; 87340; 88305; 88342; 90935; 93005; 94760; 96374; 96375; 99285